=== PATIENT | male | born 1980 | race Hispanic/Latino ===

== ENCOUNTER 2019-08-07 12:10 | Inpatient (IN) | payer SELFPAY ==
[2019-08-07 13:11] LABS: #Basophils 0.1 thou/uL (0.0-0.2); #Eosinphils 0.4 thou/uL (0.0-0.7); #Lymphocytes 1.9 thou/uL (1.20-3.40); #Monocytes 0.6 thou/uL (0.11-0.59); #Neutrophils 7.3 thou/uL (1.40-6.50); %Basophils 0.5 % (0.0-1.0); %Eosinophils 3.7 % (0.0-10.0); %Lymphocytes 18.4 % (21.0-51.0); %Monocytes 5.8 % (0.0-10.0); %Neutrophils 71.5 % (42.0-75.0); Hemoglobin 7.2 g/dL (14.0-18.0); Mean Corpuscular HGB CONC 35.1 g/dL (32.0-36.0); Mean Corpuscular Hemoglobin 30.8 pg (27.0-31.0); Mean Corpuscular Volume 87.5 fL (78.0-98.0); Mean Platelet Volume 7.2 fL (7.4-10.4); Platelet Count 190 thou/uL (130-400); RBC Distribution Width 13.2 % (11.5-14.5); Red Blood Cell (RBC) Count 2.34 mill/uL (4.70-6.10); White Blood Cell (WBC) Count 10.2 thou/uL (4.8-10.8)
--- NOTE | 2019-08-07 13:13 | RAD ---
CHEST 1 VIEW: HISTORY: Dyspnea. Comparison: None. FINDINGS: Lungs: Focal right perihilar opacity. Cardiac silhouette:Enlarged cardiac silhouette and prominence of central pulmonary vasculature. Pleural Spaces: Mild blunting of costophrenic sulci could relate to small volume pleural fluid. Pneumothorax: None. Osseous abnormalities: None of acuity. IMPRESSION: 1. Right asymmetric perihilar opacity. This could relate to perihilar pneumonia, asymmetric edema, o r alternatively underlying centrally located mass. This should be further assessed with follow-up 2 view chest to confirm resolution. 2. Evidence of fluid overload. Correlate clinically. CODE T Transcribed Date/Time: 08/07/2019 1:59 PM
[2019-08-07 13:29] LABS: ALT (SGPT) 37 U/L (8-55); AST (SGOT) 39 U/L (5-34); Albumin 3.1 g/dL (3.5-5.0); Alkaline Phosphatase 89 U/L (40-110); Anion Gap 22 mmol/L (10-20); BUN (Urea Nitrogen) 84 mg/dL (8.9-20.6); Bilirubin, Total 0.6 mg/dL (0.2-1.2); Calc. Creatinine Clearance 0 mL/min (70-130); Carbon Dioxide 16 mmol/L (22-29); Chloride 108 mmol/L (98-107); Estimated GFR-MDRD 4; Globulin 3.4 g/dL (2.4-3.5); Glucose 77 mg/dL (70-105); Potassium 4.7 mmol/L (3.5-5.1); Protein, Total 6.5 g/dL (6.0-8.3); Sodium 141 mmol/L (136-145)
[2019-08-07 13:52] LABS: CKMB 5.3 ng/mL (0-6.6)
[2019-08-07 15:43] LABS: Hep B Core Total Ab Non-Reactive (NonReactive); Hep B Core Total Index 0.04 S/CO (0-0.79); Hep B Surf AB Non-Reactive (NonReactive); Hep B Surf Ag Non-Reactive S/CO (NonReactive)
[2019-08-07 15:44] LABS: Hep C IgG Ab Non-Reactive (NonReactive); Hep C Index 0.17 S/CO (0-0.79)
[2019-08-07 15:50] LABS: Hemoglobin A1c 4.7 % (4.0-6.0)
[2019-08-07 15:51] LABS: Acetaminophen Less than 6.0 mcg/mL (10.0-30.0); Alcohol Less than 10 mg/dL (Less than 10); CK (CPK) 838 U/L (30-200); Salicylate Less than 8.0 mg/dL (15.0-30.0)
[2019-08-07] MEDS ORDERED: Aspirin 325 MG TAB ONE (16:02)
[2019-08-07] MEDS ORDERED: Ondansetron PF 4 MG/2 ML Vial IVP PRN (16:05)
[2019-08-07 16:35] LABS: Magnesium 1.9 mg/dL (1.6-2.6)
[2019-08-07 16:45] LABS: Phosphorus 10.1 mg/dL (2.3-4.7)
[2019-08-07 16:47] LABS: HIV (1/2) Antibody/Antigen Non-Reactive (NonReactive); HIV 1/2 INDEX 0.06 S/CO (<1.00)
--- NOTE | 2019-08-07 16:52 | ULT ---
RENAL ULTRASOUND: 08/07/19 HISTORY: Acute renal failure. Real time imaging of the right and left kidneys were performed. The right kidney is 11.6 cm in size. Cortex is of increased echogenicity. The left kidney is more difficult to visualize. It measures 11.5 cm. Echogenicity of the cortex. No signs of cysts, mass or obstruction. The bladder region is unrem arkable. IMPRESSION: Increased echogenicity to both kidneys suggesting underlying medical renal parenchymal disease. POS: TPC
[2019-08-07] MEDS ORDERED: Labetalol HCl 100 MG/20 ML VIAL SLOW IVP PRN (16:59)
--- NOTE | 2019-08-07 17:09 | PDOC.FPROB ---
FMR OB H&P: Medications - Current Allergies/Adverse Reactions: Allergies Allergy/AdvReac Type Severity Reaction Status Date / Time No Known Allergies Allergy Unverified 08/07/19 16:47 FMR OB H&P: Results - Labs Lab results: Laboratory Results - last 24 hr 08/07/19 08/07/19 08/07/19 12:56 12:56 12:59 WBC RBC Hgb Hct MCV MCH MCHC RDW Plt Count MPV Neutrophils % Lymphocytes % Monocytes % Eosinophils % Basophils % Neutrophils # Lymphocytes # Monocytes # Eosinophils # Basophils # ESR Westergren 37 Sodium 141 Potassium 4.7 Chloride 108 H Carbon Dioxide 16 L Anion Gap 22 H BUN 84 H Creatinine 14.15 H Estimated GFR (MDRD) 4 Glucose 77 Hemoglobin A1c 4.7 Calcium 6.0 L Phosphorus Magnesium Total Bilirubin 0.6 AST 39 H ALT 37 Alkaline Phosphatase 89 Creatine Kinase CK-MB (CK-2) Troponin I B-Natriuretic Peptide Serum Total Protein 6.5 Albumin 3.1 L Globulin 3.4 Albumin/Globulin Ratio 0.9 L Procalcitonin Salicylates Acetaminophen Plasma Alcohol Hep Bs Antigen Hep Bs Antibody Hep Bs Antibody Index Hep B Core Total Ab Hepatitis C Antibody 08/07/19 08/07/19 08/07/19 12:59 12:59 12:59 WBC 10.2 RBC 2.34 L Hgb 7.2 L Hct 20.5 L MCV 87.5 MCH 30.8 MCHC 35.1 RDW 13.2 Plt Count 190 MPV 7.2 L Neutrophils % 71.5 Lymphocytes % 18.4 L Monocytes % 5.8 Eosinophils % 3.7 Basophils % 0.5 Neutrophils # 7.3 H Lymphocytes # 1.9 Monocytes # 0.6 H Eosinophils # 0.4 Basophils # 0.1 ESR Westergren Sodium Potassium Chloride Carbon Dioxide Anion Gap BUN Creatinine Estimated GFR (MDRD) Glucose Hemoglobin A1c Calcium Phosphorus Magnesium Total Bilirubin AST ALT Alkaline Phosphatase Creatine Kinase CK-MB (CK-2) 5.3 Troponin I 0.108 H B-Natriuretic Peptide 2851.7 H Serum Total Protein Albumin Globulin Albumin/Globulin Ratio Procalcitonin Salicylates Acetaminophen Plasma Alcohol Hep Bs Antigen Hep Bs Antibody Hep Bs Antibody Index Hep B Core Total Ab Hepatitis C Antibody 08/07/19 08/07/19 08/07/19 13:49 15:29 15:36 WBC RBC Hgb Hct MCV MCH MCHC RDW Plt Count MPV Neutrophils % Lymphocytes % Monocytes % Eosinophils % Basophils % Neutrophils # Lymphocytes # Monocytes # Eosinophils # Basophils # ESR Westergren Sodium Potassium Chloride Carbon Dioxide Anion Gap BUN Creatinine Estimated GFR (MDRD) Glucose Hemoglobin A1c Calcium Phosphorus Magnesium Total Bilirubin AST ALT Alkaline Phosphatase Creatine Kinase 838 H CK-MB (CK-2) Troponin I B-Natriuretic Peptide Serum Total Protein Albumin Globulin Albumin/Globulin Ratio Procalcitonin 0.14 Salicylates Less than 8.0 L Acetaminophen Less than 6.0 L Plasma Alcohol Less than 10 Hep Bs Antigen Non-Reactive Hep Bs Antibody Non-Reactive Hep Bs Antibody Index 1.30 Hep B Core Total Ab Non-Reactive Hepatitis C Antibody Non-Reactive 08/07/19 15:42 WBC RBC Hgb Hct MCV MCH MCHC RDW Plt Count MPV Neutrophils % Lymphocytes % Monocytes % Eosinophils % Basophils % Neutrophils # Lymphocytes # Monocytes # Eosinophils # Basophils # ESR Westergren Sodium Potassium Chloride Carbon Dioxide Anion Gap BUN Creatinine Estimated GFR (MDRD) Glucose Hemoglobin A1c Calcium Phosphorus 10.1 H* Magnesium 1.9 Total Bilirubin AST ALT Alkaline Phosphatase Creatine Kinase CK-MB (CK-2) Troponin I B-Natriuretic Peptide Serum Total Protein Albumin Globulin Albumin/Globulin Ratio Procalcitonin Salicylates Acetaminophen Plasma Alcohol Hep Bs Antigen Hep Bs Antibody Hep Bs Antibody Index Hep B Core Total Ab Hepatitis C Antibody FMR OB H&P: A/P - Problem List (1) Acute renal failure Current Visit: Yes Status: Acute (2) Fluid overload Current Visit: Yes Status: Acute Code(s): E87.70 - FLUID OVERLOAD, UNSPECIFIED (3) Normocytic anemia Current Visit: Yes Status: Acute Code(s): D64.9 - ANEMIA, UNSPECIFIED
--- NOTE | 2019-08-07 17:11 | PDOC.FPRHP ---
- Allergies/Adverse Reactions Allergies Allergy/AdvReac Type Severity Reaction Status Date / Time No Known Allergies Allergy Verified 08/07/19 17:28 - History PMHx: PSHx: FHx: Social: - Vital signs BP: [] HR: [] RR: [] Tmax: [] Pox: []% on [] Wt: [] FMR H&P: Results - Labs Result Diagrams: 08/11/19 07:19 08/11/19 07:19 Lab results: WBC 10.2 thou/uL (4.8-10.8) 08/07/19 12:59 Hgb 7.2 g/dL (14.0-18.0) L 08/07/19 12:59 Hct 20.5 % (42.0-52.0) L 08/07/19 12:59 MCV 87.5 fL (78.0-98.0) 08/07/19 12:59 Plt Count 190 thou/uL (130-400) 08/07/19 12:59 Neutrophils % 71.5 % (42.0-75.0) 08/07/19 12:59 ESR Westergren 37 mm/hr (Less than 15) 08/07/19 12:56 Sodium 141 mmol/L (136-145) 08/07/19 12:59 Potassium 4.7 mmol/L (3.5-5.1) 08/07/19 12:59 Chloride 108 mmol/L (98-107) H 08/07/19 12:59 Carbon Dioxide 16 mmol/L (22-29) L 08/07/19 12:59 BUN 84 mg/dL (8.9-20.6) H 08/07/19 12:59 Creatinine 14.15 mg/dL (0.7-1.3) H 08/07/19 12:59 Glucose 77 mg/dL (70-105) 08/07/19 12:59 Calcium 6.0 mg/dL (7.8-10.44) L 08/07/19 12:59 Total Bilirubin 0.6 mg/dL (0.2-1.2) 08/07/19 12:59 AST 39 U/L (5-34) H 08/07/19 12:59 ALT 37 U/L (8-55) 08/07/19 12:59 Alkaline Phosphatase 89 U/L (40-110) 08/07/19 12:59 Creatine Kinase 838 U/L (30-200) H 08/07/19 15:29 CK-MB (CK-2) 5.3 ng/mL (0-6.6) 08/07/19 12:59 B-Natriuretic Peptide 2851.7 pg/mL (0-100) H 08/07/19 12:59 Serum Total Protein 6.5 g/dL (6.0-8.3) 08/07/19 12:59 Albumin 3.1 g/dL (3.5-5.0) L 08/07/19 12:59 FMR H&P: A/P - Problem List (1) Acute renal failure Current Visit: Yes Status: Acute (2) Fluid overload Current Visit: Yes Status: Acute Code(s): E87.70 - FLUID OVERLOAD, UNSPECIFIED (3) Normocytic anemia Current Visit: Yes Status: Chronic Code(s): D64.9 - ANEMIA, UNSPECIFIED FMR H&P: Upper Level - Plan Date/Time: 08/07/191709 Date/Time: 08/07/191707 PCP: IAN HPI: This is a 38 yo M presenting to outside clinic with chief complaint of cough and headache which started about 5 days ago. He states he had fever to 102 at home 2 days ago but has not had fever since that time. He denies productive cough although he does feel short of breath with activity. He has had chills and sweats. He was treated in clinic with azithromycin and labs were ordered in the clinic which revealed his elevated Cr thus he was sent directly to the ED. He has not seen a doctor in about 5 years per his report. He denies burning or blood with urination, he denies any changes to urinary habits. Headache is described as pressure, he states this radiates up from his neck, no neck stiffness, states this is not a new headache, it is like headaches he has had in the past. He does admit to a 10 pack-year smoking history. He previously used cocaine but quit 5 years ago. Denies any family history of renal disease. Grandmother with diabetes. PMH: patient denies DM, HTN PSH: patient denies surgeries Meds: denies home meds Allergies: NDKA Soc Hx: as above Fm hx: as above REVIEW OF SYSTEMS: Gen: see hpi Neuro: see hpi Eyes: no visual changes ENT: no hearing changes, no sore throat, no congestion Resp: see hpi Card: denies murmurs, rubs, gallups GI: no N/V/D, no abdominal pain Heme: no easy bruising/bleeding, no blood thinners Skin: no rash, no erythema Vitals: BP: 172/112, Pulse:80, Resp: 24, Temp: 98.4 Wt: 77kg PHYSICAL EXAMINATION: General: appears generally malaised, alert and oriented x3 HEENT: PERRLA, EOMI, normal sclera, oropharynx without erythema or exudate Neck: Supple. Full ROM. Heart/Cardiovascular System: RRR, Cap refill < 3 seconds, no rub, no murmur Lungs/Respiratory System: CTA-B, no resp distress Abdomen/Gastro-Intestinal System: no abdominal tenderness, normal bowel sounds Extremities: Warm extremities. No cyanosis or edema, R groin dialysis catheter in place Neuro: No gross deficits appreciated. CN 2-12 grossly intact Psychiatry: Awake, Alert and cooperative with exam Skin: No lesions, rashes, or ulcers Musculoskeletal: Full ROM A/P: # Acute renal failure - Differential: untreated HTN, familial, infectious source - Urgent dialysis arranged, Dr Hatfield consulted from ED - A1C 4.7, CK 838, unlikely sources - FeNa, renal US, HIV, Hepatitis ordered # HTN - Nifedipine - Labetalol PRN # Hx of fever - Afebrile, WBC 10.2, no signs of infection on exam - Will order procal and influenza - Denies travel to [place] or TB contacts # Normocytic Anemia - Hgb 7.2, consider transfusion with dialysis tomorrow - Iron studies, FOBT pending, likely 2/2 ARF # Fluid Overload - Likely 2/2 ARF, BNP 2851 - Remove fluid in dialysis, will check echo Fluids: TKO Code: full PPx: scd Dispo: > 2 midnight Addendum - Attending - Attending Attestation Date/Time: 08/07/19 4575 I personally evaluated the patient and discussed the management with Dr. Oliva I agree with the History, Examination, Assessment and Plan documented above with any addition or exceptions noted below. 38 yo male with unknown medical hx presents for evaluation of elevated creatinine. Patient reports fever 2 days ago. Fatigue. Body aches. CASAREZ. Has not been seen by MD in several years. Denies any medical problems. Denies changes in urination. VS, labs, and imaging reviewed. Agree with PE as documented by resident. 1. Acute vs Chronic renal failure: Requires urgent HD. Gen surg and nephro consulted. Trend electorlytes. Currently stable. Work up pending. Renal sono ordered. Urine studies pending. Monitor protein. Check all electrolytes. No s/ sx of uremia. Will need to rule out HIV, Hepatitis, etc for HD. 2. Anemia: Likely related to renal dz. Transfuse 1 unit. 3. Heart failure: Elevated BNP. CASAREZ. Will need ECHO. Will need to determine etiology. Due to age low risk for CAD as cause but patient also with risk factors. BB, statin, ASA, spironolactone. Not able to use ACIE or ARB due to renal dz. Lasix not likely to work. Cards as needed. 4. HTN: BB. Can use CCB, hydralazine, clonidine, etc. Check UDS. 5. Fever of unknown source: Bacterial vs Viral. Inflammatory markers ordered. Flu swab pending. Possible pneumonia on imaging. Monitor. Will admit to IM for HD. Trend labs. Ebony
[2019-08-07] MEDS ORDERED: NIFEdipine XL 30 MG TAB PO SCH (17:15)
[2019-08-07 17:28] LABS: Iron 37 ug/dL (65-175); Iron Binding Capacity, Total 228 mcg/dL (261-462)
[2019-08-07 17:30] VITALS: BMI 25.0
[2019-08-07 17:50] LABS: #Basophils 0.1 thou/uL (0.0-0.2); #Eosinphils 0.3 thou/uL (0.0-0.7); #Lymphocytes 1.4 thou/uL (1.20-3.40); #Monocytes 0.3 thou/uL (0.11-0.59); #Neutrophils 6.9 thou/uL (1.40-6.50); %Basophils 0.7 % (0.0-1.0); %Eosinophils 3.1 % (0.0-10.0); %Lymphocytes 15.7 % (21.0-51.0); %Monocytes 2.8 % (0.0-10.0); %Neutrophils 77.7 % (42.0-75.0); Hemoglobin 7.2 g/dL (14.0-18.0); Mean Corpuscular HGB CONC 35.2 g/dL (32.0-36.0); Mean Corpuscular Hemoglobin 31.2 pg (27.0-31.0); Mean Corpuscular Volume 88.9 fL (78.0-98.0); Mean Platelet Volume 7.2 fL (7.4-10.4); Platelet Count 193 thou/uL (130-400); RBC Distribution Width 13.4 % (11.5-14.5); Reticulocyte Count 2.3 % (0.5-1.5); White Blood Cell (WBC) Count 8.9 thou/uL (4.8-10.8)
[2019-08-07] MEDS: Calcium Carbonate 500 MG ChewTAB PO SCH (18:01)
[2019-08-07] MEDS: EPOETIN ALFA-EPBX (ESRD) 4,000 UNIT/ML VIAL SC SCH (18:01)
[2019-08-07 18:28] LABS: Anion Gap 19 mmol/L (10-20); BUN (Urea Nitrogen) 71 mg/dL (8.9-20.6); Calc. Creatinine Clearance 9 mL/min (70-130); Calcium 6.7 mg/dL (7.8-10.44); Carbon Dioxide 18 mmol/L (22-29); Chloride 105 mmol/L (98-107); Estimated GFR-MDRD 5; Glucose 78 mg/dL (70-105); Phosphorus 7.6 mg/dL (2.3-4.7); Potassium 4.3 mmol/L (3.5-5.1); Sodium 138 mmol/L (136-145)
--- NOTE | 2019-08-07 19:54 | CON ---
DATE OF CONSULTATION: HISTORY OF PRESENT ILLNESS: Mr. Macias is a 38-year-old male, who presented to [facility], complaining of fever. He was noted to have a creatinine 14 at that time. On examination on this patient after transfer, he is sleepy and drowsy. I think he may be clinically uremic. REVIEW OF SYSTEMS: Positive for generalized malaise. Positive for nausea. No syncopal episode. ? of fever. No diarrhea. No constipation. No productive cough. Decreased energy level. Decreased appetite. Occasional joint pains. No new skin rash. MEDICATIONS: None. PAST MEDICAL HISTORY: 1. Hypertension ? 2. Chronic renal failure ? PAST SURGICAL HISTORY: No known surgeries. SOCIAL HISTORY: The patient lives in [facility]. He is a construction job cost estimator. . Three children. Smokes 10 cigarettes per day for the last 10 years. Education, primary grade. No IV drug use. Alcohol, none ? FAMILY HISTORY: No family history of ESRD. ALLERGIES: NONE. TRAUMA: None. IMMUNIZATION: Unknown. HOSPITALIZATIONS: Please see past medical history. PHYSICAL EXAMINATION: VITAL SIGNS: Blood pressure is 170/106, heart rate 74, and pulse ox 99%. GENERAL: The patient is sleepy, but arousable, not in overt distress. SKIN: Adequate turgor. HEENT: Pale conjunctivae. Anicteric sclerae. No neck mass. No carotid bruits. No JVD. CHEST: No deformities. LUNGS: Decreased breath sounds. No wheezing. No crackles. HEART: Normal sinus rhythm. No murmur. No gallops. No rubs. ABDOMEN: Globular, soft, nontender. No masses. EXTREMITIES: No edema. No deformities. NEUROLOGICAL: The patient has decreased mentation. No tremors. No asterixis. LABORATORY DATA: Laboratories on August 07, 2019, white count 10.2, hemoglobin 7.2. Sodium 141, potassium 4.7, chloride 108, carbon dioxide 16, BUN 84, creatinine 14.1. GFR is less than 10 mL/minute. CK 5.3, AST 39, ALT 37, calcium is 6. Chest x-ray, increased lung marking. Renal ultrasound, increased renal cortical echogenicity. ASSESSMENT AND PLAN: 1. Chronic renal failure with anemia, possible hyperphosphatemia. Consider the possibility, this is chronic in nature. I have initiated dialysis since I feel this patient is clinically uremic. Our plan is to do a 2-hour hemodialysis and followed by another dialysis tomorrow for 3 hours, then 4 hours the day after. We will make arrangements for outpatient hemodialysis. 2. Anemia. P.r.n. blood transfusion. Start Epogen and iron supplementation. 3. We will recheck baseline CBC, intact PTH, and serum phosphorus in a.m. 4. Case will be discussed with the if she is available. Thank you for the consult. We will continue to follow. Job ID: [id number]
[2019-08-07] MEDS ORDERED: NIFEdipine 10 MG CAP PO SCH (21:00)
[2019-08-07 22:26] LABS: Amphetamine Not Detected (NotDetected); Barbiturates Screen Not Detected (NotDetected); Benzodiazepine Screen Not Detected (NotDetected); Cocaine Metabolite Screen Detected (NotDetected); Medtox Control Line Valid? VALID (VALID); Medtox Reader # READER 4; Methadone Not Detected (NotDetected); Methamphetamine Not Detected (NotDetected); Opiate Screen Not Detected (NotDetected); Oxycodone Screen Not Detected (NotDetected); Phencyclidine (PCP) Not Detected (NotDetected); THC/Cannabinoid Screen Not Detected (NotDetected); Tricyclic Screen Not Detected (NotDetected)
[2019-08-07 22:32] LABS: Creatinine, Urine 59.77 mg/dL (63-166)
[2019-08-07] MEDS: Acetaminophen 325 MG TAB PO PRN (22:57)
[2019-08-08] MEDS: Acetaminophen 325 MG TAB PO PRN (04:41)
--- NOTE | 2019-08-08 05:35 | PDOC.FM ---
- Subjective Subjective: Pt feels the same as yesterday. He states he tolerated dialysis yesterday. He remains fatigued. Denies pain. Continues making urine. - Objective Vital Signs & Weight: Vital Signs (12 hours) Temp Pulse Ox 08/08/19 03:48 98.6 F 08/07/19 23:00 98.9 F 08/07/19 20:00 98 08/07/19 19:58 98.0 F 08/07/19 17:36 100 Weight Weight 72.439 kg Most Recent Monitor Data Heart Rate from ECG 94 NIBP 113/70 NIBP BP-Mean 84 Respiration from ECG 17 SpO2 95 I&O: 08/06/19 08/07/19 08/08/19 06:59 06:59 06:59 Intake Total 240 Output Total 325 Balance -85 Result Diagrams: 08/08/19 05:34 08/08/19 05:34 Phys Exam - Physical Examination Constitutional: NAD Appears fatigued HEENT: PERRLA, sclera anicteric Respiratory: no wheezing, no rales, no rhonchi, clear to auscultation bilateral Cardiovascular: RRR, no significant murmur Gastrointestinal: soft, non-tender, no distention Musculoskeletal: no edema, pulses present Neurological: normal sensation, moves all 4 limbs Psychiatric: normal affect, A&O x 3 Dx/Plan (1) Acute renal failure Status: Acute (2) Fluid overload Code(s): E87.70 - FLUID OVERLOAD, UNSPECIFIED Status: Acute (3) Normocytic anemia Code(s): D64.9 - ANEMIA, UNSPECIFIED Status: Acute - Plan Plan: # Acute renal failure Positive cocaine, hx of cocaine, undiagnosed HTN could be cause of renal failure. - Differential: untreated HTN, familial - Continue dialysis via fem line per Dr. Hatfield's recs - A1C 4.7, CK 838, unlikely sources - feNa elevated, intra-renal process - U/S revealed parynchemal involvement - less likely infectious, Hep Panel negative, HIV negative, Procal negative # Elevated ESR - possibly secondary to acute renal failure # HTN - Nifedipine - Labetalol PRN # Hx of fever - Afebrile, WBC 10.2, no signs of infection on exam - Will order procal and influenza - Denies travel to [place] or TB contacts # Normocytic Anemia - Hgb 8.2, transfusion with dialysis today, per Dr. Hatfield's recs - Iron studies revealed anemia of chronic disease, retic 2.3, FOBT pending, likely 2/2 ARF - EPO during dialysis, iron sulfate PO # Fluid Overload - Likely 2/2 ARF, BNP 2851 - Remove fluid in dialysis, will check echo # Hypophosphatemia # Hyperparathyroid # Hypocalcemia - Calcium corrects to low normal. Parathyroid, phosphate are likely elevated due to renal failure Fluids: TKO Code: full PPx: scd Dispo: > 2 midnight, will move to medical floor today.
[2019-08-08 05:48] LABS: #Basophils 0.1 thou/uL (0.0-0.2); #Eosinphils 0.4 thou/uL (0.0-0.7); #Lymphocytes 1.9 thou/uL (1.20-3.40); #Monocytes 0.6 thou/uL (0.11-0.59); #Neutrophils 6.6 thou/uL (1.40-6.50); %Basophils 0.8 % (0.0-1.0); %Eosinophils 4.3 % (0.0-10.0); %Lymphocytes 19.5 % (21.0-51.0); %Monocytes 6.2 % (0.0-10.0); %Neutrophils 69.2 % (42.0-75.0); Hemoglobin 8.2 g/dL (14.0-18.0); Mean Corpuscular HGB CONC 35.1 g/dL (32.0-36.0); Mean Corpuscular Hemoglobin 30.8 pg (27.0-31.0); Mean Corpuscular Volume 87.7 fL (78.0-98.0); Mean Platelet Volume 7.3 fL (7.4-10.4); Platelet Count 228 thou/uL (130-400); RBC Distribution Width 13.1 % (11.5-14.5); Red Blood Cell (RBC) Count 2.67 mill/uL (4.70-6.10); White Blood Cell (WBC) Count 9.5 thou/uL (4.8-10.8)
[2019-08-08 06:00] LABS: Anion Gap 17 mmol/L (10-20); BUN (Urea Nitrogen) 58 mg/dL (8.9-20.6); Calc. Creatinine Clearance 10 mL/min (70-130); Calcium 6.7 mg/dL (7.8-10.44); Carbon Dioxide 22 mmol/L (22-29); Chloride 101 mmol/L (98-107); Estimated GFR-MDRD 6; Glucose 119 mg/dL (70-105); Potassium 3.7 mmol/L (3.5-5.1); Sodium 136 mmol/L (136-145)
[2019-08-08 06:44] LABS: Bilirubin Negative (Negative); Blood, Urine 1+ (Negative); Clarity Clear (Clear); Glucose, Urine (Dipstick) 30 mg/dL (Negative); Leukocyte Negative Leu/uL (Negative); Nitrite Negative (Negative); Protein, Urine (Dipstick) 300 mg/dL (Neg-Trace); Squamous Epithelial 0-3 HPF (0-3); Urobilinogen Normal mg/dL (Less than 2)
[2019-08-08 06:45] LABS: Bacteria/HPF 1+ HPF (None Seen)
[2019-08-08] MEDS ORDERED: FLU VACC QS2019-20(6MOS UP)/PF 60 MCG/0.5 ML SYRINGE IM ONE (09:00)
--- NOTE | 2019-08-08 09:52 | PRG ---
DATE OF SERVICE: 08/08/2019 SUBJECTIVE: Mr. Macias is a 38-year-old male, who was admitted for uremia. On close questioning, he tells me he has history of hypertension and diabetes mellitus, but this is untreated. Due to his uremic signs and symptoms, hemodialysis was initiated today. I plan to do another dialysis within today. He is feeling better. OBJECTIVE: VITAL SIGNS: Blood pressure 125/81, heart rate 94, respiratory rate 28, and pulse ox 97%. GENERAL: Noted to be awake, alert, comfortable, not in distress. SKIN: Adequate turgor. HEENT: He has a slightly pale conjunctivae. Anicteric sclerae. No neck mass. No carotid bruits. No JVD. CHEST: No deformities. LUNGS: Clear breath sounds. HEART: Normal sinus rhythm. No murmurs, gallops, or rubs. ABDOMEN: Globular, soft, nontender. No masses. EXTREMITIES: No edema, no deformities. MEDICATIONS: Of August 08, 2019, was reviewed. LABORATORY DATA: Of August 08, 2019, BUN 58, creatinine 10.29, potassium 3.7, sodium 136, chloride 101, carbon dioxide 22, calcium is 6.7, phosphorus 7.6, PTH is 536. ASSESSMENT AND PLAN: 1. Secondary hyperparathyroidism. Calcitriol 0.25 mcg tablet daily. 2. Hyperphosphatemia/hypocalcemia-on calcium carbonate. 3. Chronic renal failure/endstage renal disease, continuing daily hemodialysis. Fluid removal only as tolerated. 4. Anemia, continuing weekly Epogen. Job ID: [id number]
[2019-08-08] MEDS: Calcium Carbonate 500 MG ChewTAB PO SCH ×2 (13:32→18:21)
[2019-08-08] MEDS: Ferrous Sulfate 325 MG TAB PO SCH ×2 (13:34→18:21)
[2019-08-08] MEDS: NIFEdipine XL 30 MG TAB PO SCH (13:34)
--- NOTE | 2019-08-08 14:25 | PDOC.BPN ---
- Brief Progress Note To whom it may concern, This patient is admitted to [facility] in [place], [place] for acute renal failure. He is currently receiving dialysis treatment and doing well but his long-term prognosis is unknown at this moment. We will see how his kidneys respond to dialysis and medical therapy. Jp Oliva MD [place], [place] [phone]
[2019-08-08] MEDS ORDERED: Heparin 10,000 UNITS/1 ML VIAL ONE (15:00)
[2019-08-08] MEDS ORDERED: Heparin 10,000 UNITS/ 10 ML VIAL ONE (18:00)
[2019-08-09] MEDS: Benzonatate 100 MG CAP PO PRN ×2 (00:43→22:19)
[2019-08-09] MEDS: Acetaminophen 325 MG TAB PO PRN ×2 (00:43→20:26)
--- NOTE | 2019-08-09 06:46 | PDOC.FM ---
- Subjective Subjective: Pt was coughing through night. states he had fever, RUGGIERO overnight resolved with tylenol. He feels better after dialysis. - Objective Vital Signs & Weight: Vital Signs (12 hours) Temp Pulse Resp BP Pulse Ox 08/09/19 04:27 98.6 F 82 20 142/94 H 90 L 08/09/19 00:38 100.3 F H 92 16 146/80 H 92 L 08/08/19 20:00 92 L 08/08/19 19:51 100.0 F H 91 16 151/86 H 92 L Weight Weight 72.439 kg Most Recent Monitor Data Heart Rate from ECG 80 NIBP 137/82 NIBP BP-Mean 100 Respiration from ECG 21 SpO2 98 I&O: 08/07/19 08/08/19 08/09/19 06:59 06:59 06:59 Intake Total 240 350 Output Total 325 Balance -85 350 Result Diagrams: 08/09/19 07:28 08/09/19 07:28 Phys Exam - Physical Examination Constitutional: NAD HEENT: PERRLA, moist MMs Respiratory: no wheezing, no rales, clear to auscultation bilateral Cardiovascular: RRR, no significant murmur, no rub Gastrointestinal: soft, non-tender, no distention Musculoskeletal: no edema Dx/Plan (1) Acute renal failure Status: Acute (2) Fluid overload Code(s): E87.70 - FLUID OVERLOAD, UNSPECIFIED Status: Acute (3) Normocytic anemia Code(s): D64.9 - ANEMIA, UNSPECIFIED Status: Acute - Plan Plan: # Acute renal failure Positive cocaine, hx of cocaine, undiagnosed HTN could be cause of renal failure. - Differential: untreated HTN, familial - Continue dialysis via fem line per Dr. Hatfield's recs. He is receiving his 3/3 days of dialysis. Follow Dr. Hatfield's recs to see if he recommends more. - A1C 4.7, CK 838, unlikely sources - feNa elevated, intra-renal process - U/S revealed parynchemal involvement - less likely infectious, Hep Panel negative, HIV negative, Procal negative - Per Dr. Hatfield, will follow up with Dialysis Unit in [place]. He has spoken with about this. # Restrictive Diastolic Cardiomyopathy Possibly secondary to uremia Echo: EF 40-45% - Cards consulted; appreciate the recs - Order lisinopril and coreg # Elevated ESR - possibly secondary to acute renal failure # HTN - Nifedipine - Labetalol PRN # Hx of fever - 100.3 fever over night. WBC 9.5. No signs of infection on exam - Procal negative - Denies travel to [place] or TB contacts # Normocytic Anemia s/p 1 uprbc on 08/08 with dialysis. Hgb 8.5 on 08/09. - Iron studies revealed anemia of chronic disease, retic 2.3, FOBT negative likely 2/2 ARF - EPO during dialysis, iron sulfate PO # Fluid Overload - Likely 2/2 ARF, BNP 2851 - Remove fluid in dialysis, will check echo # Hypophosphatemia # Hyperparathyroid # Hypocalcemia - Calcium corrects to low normal. Parathyroid, phosphate are likely elevated due to renal failure Fluids: TKO Code: full PPx: scd Dispo: > 2 midnight, pending outpt dialysis and card's recs for discharge.
[2019-08-09 07:47] LABS: Troponin I 0.107 ng/mL (< 0.028)
[2019-08-09 07:56] LABS: Anion Gap 15 mmol/L (10-20); BUN (Urea Nitrogen) 41 mg/dL (8.9-20.6); Calc. Creatinine Clearance 13 mL/min (70-130); Calcium 6.9 mg/dL (7.8-10.44); Carbon Dioxide 22 mmol/L (22-29); Chloride 102 mmol/L (98-107); Estimated GFR-MDRD 7; Glucose 82 mg/dL (70-105); Potassium 4.4 mmol/L (3.5-5.1); Sodium 135 mmol/L (136-145)
[2019-08-09 08:06] LABS: Band 1 % (5-11); Eosinophils 8 % (0-10); Helmet Cells SLIGHT = 2-5 cells (100X) (0-1/hpf); Hemoglobin 8.5 g/dL (14.0-18.0); Lymphocytes 23 % (21-51); MDiff Complete? YES; Mean Corpuscular HGB CONC 34.5 g/dL (32.0-36.0); Mean Corpuscular Volume 84.1 fL (78.0-98.0); Mean Platelet Volume 7.7 fL (7.4-10.4); Monocytes 8 % (0-10); Neutrophil 57 % (42-75); Ovalocytes SLIGHT = 2-5 cells (100X) (0-1/hpf); Platelet Count 199 thou/uL (130-400); Platelet Morphology Comment Appears Adequate; Polychromasia SLIGHT = 2-3 cells (100X) (0-2/hpf); RBC Distribution Width 16.7 % (11.5-14.5); Reactive Lymphocytes 3 % (0-10); Red Blood Cell (RBC) Count 2.93 mill/uL (4.70-6.10); Schistocytes SLIGHT = 2-5 cells (100X) (0-1/hpf); Target Cells SLIGHT = 2-5 cells (100X) (0-1/hpf); White Blood Cell (WBC) Count 9.6 thou/uL (4.8-10.8)
[2019-08-09] MEDS: Ferrous Sulfate 325 MG TAB PO SCH ×2 (09:14→19:11)
[2019-08-09] MEDS: Calcitriol 0.25 MCG CAP PO SCH (09:14)
[2019-08-09] MEDS: NIFEdipine XL 30 MG TAB PO SCH (09:14)
[2019-08-09] MEDS: Calcium Carbonate 500 MG ChewTAB PO SCH ×3 (09:14→19:11)
--- NOTE | 2019-08-09 13:59 | RAD ---
XR Chest Pa Lat STANDARD History: Cough and decreased oxygen saturation Comparison: Radiograph 2 days prior Findings: Improved aeration of the lungs. No pneumothorax. Small effusions. No acute osseous abnormality. Cardiac silhouette and mediastinal contours are within normal limits. Impression: Improved lung aeration with small bilateral effusions remaining.
--- NOTE | 2019-08-09 18:51 | CON ---
DATE OF CONSULTATION: 08/09/2019 REASON FOR CONSULTATION: Mildly depressed left ventricular function in the setting of renal failure. HISTORY OF PRESENT ILLNESS: Mr. Macias is a 38-year-old gentleman, who presented to the emergency room, it appears complaining of weakness and fatigue and was found to be in renal failure. He was transferred here for further care. The patient does not have chest pain or pressure. He did report a fever. His initial creatinine is 14. He speaks Sinhala only. No history of chest pain. No history of hypertension that he knew of, but he has been hypertensive here. REVIEW OF SYSTEMS: Positive for malaise and weakness. No nausea. No syncope. Positive for fever. MEDICATION: None prior to admission. PAST SURGICAL HISTORY: No known surgery. 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 , with three children. FAMILY HISTORY: No history of end-stage renal disease. ALLERGIES: NONE. PHYSICAL EXAMINATION: GENERAL: This is a very pleasant, healthy-appearing, 38-year-old gentleman. He has been hypertensive here. VITAL SIGNS: His blood pressure most recently 160/90. HEENT: Eyes; sclerae are nonicteric. Mouth, mucous membranes moist. NECK: Supple. No lymphadenopathy. LUNGS: Clear. No wheezing. CARDIAC: Normal S1, normal S2. There is no murmur, rub, or gallop. ABDOMEN: Soft and nontender. EXTREMITIES: Warm and dry. No clubbing, cyanosis, or edema. PERTINENT LABORATORIES: Hemoglobin is 8.5. His creatinine is 8.2. He is undergoing hemodialysis now. BNP 1502. Troponin 0.17. Echocardiogram showed ejection fraction of 40% to 45% with some diastolic dysfunction. ASSESSMENT: 1. End-stage renal disease. 2. Hypertension. 3. Diastolic dysfunction with some left ventricular systolic dysfunction. I suspect this maybe related to hypertension. I am trying to review the echocardiogram, but the machines are having difficulty loading these for review, but clinically, I suspect this is hypertensive heart disease. Apparently, the patient is making small amounts of urine. Hopefully, his renal function can improve, he is on medicines for blood pressure. Job ID: [id number]
[2019-08-09] MEDS: Carvedilol 6.25 MG TAB PO SCH (19:11)
--- NOTE | 2019-08-09 19:20 | PRG ---
DATE OF SERVICE: 08/09/2019 SUBJECTIVE: Mr. Macias is a 38-year-old male, who was admitted for uremic signs and symptoms. He underwent emergent hemodialysis. His mentation and overall condition are much improved with dialysis. He was also started on lisinopril and carvedilol due to the decreased EF. No new complaints today. He is feeling better. He underwent a 4-hour hemodialysis without any difficulty. OBJECTIVE: VITAL SIGNS: Blood pressure is 160/90, heart rate 77, respiratory rate 18, temperature 98.8, and pulse ox 94%. GENERAL: Noted to be awake, alert, comfortable, not in distress. SKIN: Adequate turgor. HEENT: Pale conjunctivae. Anicteric sclerae. NECK: No neck mass. No carotid bruits. No JVD. CHEST: No deformities. LUNGS: Clear breath sounds. HEART: Normal sinus rhythm. No murmur. No gallops. No rubs. ABDOMEN: Globular, soft, nontender. No masses. EXTREMITIES: No edema. No deformities. MEDICATIONS: Medications of August 09, 2019, reviewed. LABORATORY DATA: Laboratories of August 09, 2019; white count 9.6, hemoglobin 8.5. Sodium 135, potassium 4.4, chloride 102, carbon dioxide 22, BUN 41, creatinine 8.22, and calcium 6.9. BNP 1502. Serologies; HIV negative, hepatitis B and C are negative. ASSESSMENT AND PLAN: 1. Chronic renal failure/end-stage renal disease. Possibility of diabetic nephropathy with his poorly controlled diabetes as well as presence of proteinuria in the urine. 2. The patient has been tolerating his dialysis. Consider ordering an SONALI and ANCA to complete the workup for his proteinuria. 3. Anemia, currently on weekly Epogen, p.r.n. blood transfusion. 4. Hypocalcemia-currently on Tums and calcitriol. Job ID: [id number]
--- NOTE | 2019-08-10 05:33 | PDOC.FM ---
- Subjective Subjective: Patient doing well this morning, no complaints. Denies cp, sob, abdominal pain. Patient's reports that they are still waiting on bed placement at outpatient dialysis. She states that per Dr. Hatfield he would likely stay through the weekend for continued care and assurance that he has outpatient bed placement. She also asked about the letter that was written for patient's mother to possibly get a visa to visit. Per chart review Dr. Oliva wrote the letter yesterday. Discussed with her that I would talk with CM today and give them an update. Patient and agreeable to current plan of care at this time. - Objective Vital Signs & Weight: Vital Signs (12 hours) Temp Pulse Resp BP BP Pulse Ox 08/10/19 00:00 98.1 F 79 18 143/81 H 08/09/19 21:29 98.9 F 79 16 136/83 92 L 08/09/19 20:00 95 08/09/19 19:11 138/78 08/09/19 19:05 98.6 F 83 18 138/78 94 L Weight Weight 72.439 kg Most Recent Monitor Data Heart Rate from ECG 80 NIBP 137/82 NIBP BP-Mean 100 Respiration from ECG 21 SpO2 98 I&O: 08/08/19 08/09/19 08/10/19 06:59 06:59 06:59 Intake Total 240 350 Output Total 325 Balance -85 350 Result Diagrams: 08/10/19 06:11 08/10/19 06:11 Phys Exam - Physical Examination Constitutional: NAD HEENT: moist MMs, sclera anicteric Neck: supple, full ROM Respiratory: no wheezing, clear to auscultation bilateral Cardiovascular: RRR, no significant murmur Gastrointestinal: soft, non-tender Musculoskeletal: no edema, pulses present Neurological: non-focal, moves all 4 limbs Lymphatic: no nodes Psychiatric: normal affect, A&O x 3 Skin: no rash, normal turgor Dx/Plan (1) Acute renal failure Status: Acute (2) Fluid overload Code(s): E87.70 - FLUID OVERLOAD, UNSPECIFIED Status: Acute (3) Normocytic anemia Code(s): D64.9 - ANEMIA, UNSPECIFIED Status: Chronic - Plan Plan: Patient is a 38M with PMHx of cocaine abuse and 10pack year smoking hx that is admitted for acute renal failure and fluid overload Plan: # Acute renal failure Positive cocaine, hx of cocaine, undiagnosed HTN could be cause of renal failure. - Differential: untreated HTN, familial - Continue dialysis via fem line per Dr. Hatfield's recs. Received hemodialysis yesterday - A1C 4.7, CK 838, unlikely sources - feNa elevated, intra-renal process - SONALI and ANCA pending per Dr. Hatfield's recs for other causes of proteinuria - U/S revealed parynchemal involvement - less likely infectious, Hep Panel negative, HIV negative, Procal negative - Per Dr. Hatfield, will follow up with Dialysis Unit in [place]. CM aware and continues to work on this - Will f/u with CM today about the status of the visa letter that patient's could take to the [place] [employer] # Restrictive Diastolic Cardiomyopathy Possibly secondary to uremia Echo: EF 40-45% - Cards consulted; thought that this is diastolic dysfunction with some left ventricular systolic dysfunction, likely due to hypertensive heart disease; appreciate continued recs - Started on lisinopril and coreg, continue # Elevated ESR - possibly secondary to acute renal failure, will continue to follow # HTN - Nifedipine, carvedilol; lisinopril to start this am - Labetalol PRN # Hx of fever - Afebrile overnight, no signs of infection on exam - Procal negative - Denies travel to [place] or TB contacts # Normocytic Anemia s/p 1 uprbc on 08/08 with dialysis. Hgb 8.5 on 08/09. - Iron studies revealed anemia of chronic disease, retic 2.3, FOBT negative; likely 2/2 ARF - EPO during dialysis, iron sulfate PO # Fluid Overload - Likely 2/2 ARF, BNP 2851> 1502 # Hypophosphatemia # Hyperparathyroid # Hypocalcemia - Calcium corrects to low normal. Parathyroid, phosphate are likely elevated due to renal failure Fluids: TKO Code: full PPx: scd Dispo: > 2 midnight, pending outpt dialysis bed placement and card's recs for discharge. Addendum - Attending - Attending Attestation Date/Time: 08/10/19 6710 I personally evaluated the patient and discussed the management with Dr. Islas I agree with the History, Examination, Assessment and Plan documented above with any addition or exceptions noted below - Patient without complaints. Afebrile VSS. A/P: 1) ESRD- on HD; continue HD; consult surgery for permanent dialysis access. 2) HTN- adjust BP meds. 3) Diastolic HF - appreciate cardiology input.
[2019-08-10 06:41] LABS: Band 2 % (5-11); Eosinophils 8 % (0-10); Hemoglobin 8.8 g/dL (14.0-18.0); Lymphocytes 29 % (21-51); MDiff Complete? YES; Mean Corpuscular HGB CONC 34.6 g/dL (32.0-36.0); Mean Corpuscular Hemoglobin 30.1 pg (27.0-31.0); Mean Platelet Volume 7.3 fL (7.4-10.4); Monocytes 2 % (0-10); Neutrophil 59 % (42-75); Platelet Count 254 thou/uL (130-400); RBC Distribution Width 16.4 % (11.5-14.5); Red Blood Cell (RBC) Count 2.92 mill/uL (4.70-6.10); White Blood Cell (WBC) Count 8.3 thou/uL (4.8-10.8)
[2019-08-10 06:42] LABS: Anion Gap 14 mmol/L (10-20); BUN (Urea Nitrogen) 25 mg/dL (8.9-20.6); Calc. Creatinine Clearance 17 mL/min (70-130); Calcium 7.6 mg/dL (7.8-10.44); Carbon Dioxide 28 mmol/L (22-29); Chloride 102 mmol/L (98-107); Estimated GFR-MDRD 10; Glucose 84 mg/dL (70-105); Potassium 4.1 mmol/L (3.5-5.1); Sodium 140 mmol/L (136-145)
[2019-08-10] MEDS: Calcium Carbonate 500 MG ChewTAB PO SCH ×4 (08:13→23:31)
[2019-08-10] MEDS: Calcitriol 0.25 MCG CAP PO SCH (08:14)
[2019-08-10] MEDS: Carvedilol 6.25 MG TAB PO SCH ×2 (08:14→17:36)
[2019-08-10] MEDS: NIFEdipine XL 30 MG TAB PO SCH (08:14)
[2019-08-10] MEDS: Ferrous Sulfate 325 MG TAB PO SCH ×2 (08:14→17:36)
[2019-08-10] MEDS ORDERED: Lisinopril 2.5 MG TAB PO SCH ×2 (09:00→11:12)
[2019-08-10] MEDS ORDERED: Lisinopril 10 MG TAB PO SCH (11:30)
--- NOTE | 2019-08-10 11:30 | PRG ---
DATE OF SERVICE: 08/10/2019 SUBJECTIVE: Mr. Macias is a 38-year-old male, who was admitted for uremia and he underwent emergent hemodialysis. Since dialysis in the last several days, he is feeling much better. We are currently making arrangements for outpatient dialysis with this patient. The exact etiology of his renal failure is uncertain, but diabetic nephropathy is a possibility with him. The patient will be referred to Surgery for AV fistula placement and cuffed dialysis catheter placement. OBJECTIVE: VITAL SIGNS: Blood pressure is 183/102, heart rate 76, respiratory rate 18, temperature 98.5, and pulse ox 98%. GENERAL: Awake, alert, comfortable, not in distress. SKIN: Adequate turgor. HEENT: Pinkish conjunctivae. Anicteric sclerae. NECK: No neck mass. No carotid bruits. No JVD. CHEST: No deformities. LUNGS: Clear breath sounds. HEART: Normal sinus rhythm. No murmur. No gallops. No rubs. ABDOMEN: Globular, soft, nontender. No masses. EXTREMITIES: No edema. No deformities. MEDICATIONS: Medications of August 10, 2019, was reviewed. LABORATORY DATA: Laboratories of August 10, 2019; hemoglobin 8.8. Sodium 140, potassium 4.1, chloride 102, carbon dioxide 28, BUN 25, creatinine 6.21, calcium 7.6, BNP 1502. ASSESSMENT AND PLAN: 1. Chronic renal failure/ESRD continuing 3 times a week hemodialysis. Refer to Surgery for AV fistula placement and cuffed hemodialysis catheter placement. Awaiting outpatient dialysis placement. 2. Anemia, continuing weekly Epogen. 3. Hypocalcemia/elevated PTH-on calcitriol. 4. Hypertension. Increase lisinopril from 2.5 to 10 mg tablet once a day. 5. Agree with current management. Job ID: [id number]
[2019-08-10] MEDS: Calcium Carbonate 500 MG ChewTAB PO PRN (23:30)
[2019-08-10] MEDS: Acetaminophen 325 MG TAB PO PRN (23:30)
--- NOTE | 2019-08-11 03:06 | EKG ---
Test Reason : Blood Pressure : / mmHG Vent. Rate : 080 BPM Atrial Rate : 080 BPM P-R Int : 124 ms QRS Dur : 082 ms QT Int : 458 ms P-R-T Axes : 035 011 089 degrees QTc Int : 528 ms Normal sinus rhythm Prolonged QT Abnormal ECG Confirmed by TERESA LOWERY D.O. ([id number]), sound editor SHELDON COE ([id number]) on 08/11/2019 3:05:15 AM Referred By: Confirmed By:TERESA LOWERY D.O.
--- NOTE | 2019-08-11 05:15 | PDOC.FM ---
- Subjective Subjective: Patient doing well this morning. Discussed that he will likely need surgery for an AV fistula and cuffed dialysis cath placement, with continued waiting for outpatient dialysis bed placement. Patient agreeable to current plan of care with no complaints. - Objective Vital Signs & Weight: Vital Signs (12 hours) Temp Pulse Resp BP Pulse Ox 08/10/19 19:28 99.9 F H 87 16 148/82 H 93 L Weight Weight 72.439 kg Most Recent Monitor Data Heart Rate from ECG 80 NIBP 137/82 NIBP BP-Mean 100 Respiration from ECG 21 SpO2 98 I&O: 08/09/19 08/10/19 08/11/19 06:59 06:59 06:59 Intake Total 350 240 Balance 350 240 Result Diagrams: 08/11/19 07:08/11/19 07:19 Phys Exam - Physical Examination Constitutional: NAD HEENT: moist MMs, sclera anicteric Neck: supple, full ROM Respiratory: no wheezing, clear to auscultation bilateral Cardiovascular: RRR, no significant murmur Gastrointestinal: soft, non-tender Musculoskeletal: no edema, pulses present Neurological: normal sensation, moves all 4 limbs Lymphatic: no nodes Psychiatric: normal affect, A&O x 3 Skin: normal turgor, cap refill <2 seconds Dx/Plan (1) Acute renal failure Status: Acute (2) Fluid overload Code(s): E87.70 - FLUID OVERLOAD, UNSPECIFIED Status: Acute (3) Normocytic anemia Code(s): D64.9 - ANEMIA, UNSPECIFIED Status: Chronic - Plan Plan: Plan: Patient is a 38M with PMHx of cocaine abuse and 10pack year smoking hx that is admitted for acute renal failure and fluid overload # Acute renal failure Positive cocaine, hx of cocaine, undiagnosed HTN could be cause of renal failure. - Differential: untreated HTN, familial - Continue dialysis via fem line per Dr. Hatfield's recs. - A1C 4.7, CK 838, unlikely sources - feNa elevated, intra-renal process - SONALI and ANCA pending per Dr. Hatfield's recs for other causes of proteinuria - U/S revealed parynchemal involvement - less likely infectious, Hep Panel negative, HIV negative, Procal negative - Per Dr. Hatfield, will follow up with Dialysis Unit in [place]. aware and continues to work on this - Consult put in for Dr. Richardson on monday for AV fistula/cuffed dialysis catheter placement # Restrictive Diastolic Cardiomyopathy Possibly secondary to uremia Echo: EF 40-45% - Cards consulted; thought that this is diastolic dysfunction with some left ventricular systolic dysfunction, likely due to hypertensive heart disease; appreciate continued recs - Started on lisinopril and coreg, lisinopril dosage increased yesterday # Elevated ESR - possibly secondary to acute renal failure, will continue to follow # HTN - Nifedipine, carvedilol; lisinopril dosage increased to 10mg yesterday; BP appears better controlled - Labetalol PRN # Hx of fever - Afebrile overnight, no signs of infection on exam - Procal negative - Denies travel to [place] or TB contacts # Normocytic Anemia s/p 1 uprbc on 08/08 with dialysis. Hgb 8.5 on 08/09. - Iron studies revealed anemia of chronic disease, retic 2.3, FOBT negative; likely 2/2 ARF - EPO during dialysis, iron sulfate PO # Fluid Overload - Likely 2/2 ARF, BNP 2851> 1502 # Hypophosphatemia # Hyperparathyroid # Hypocalcemia - Calcium corrects to low normal. Parathyroid, phosphate are likely elevated due to renal failure Fluids: TKO Code: full PPx: scd Dispo: > 2 midnight, pending outpt dialysis bed placement, surgery consult on monday, and card's recs for discharge. Addendum - Attending - Attending Attestation Date/Time: 08/11/19 1202 I personally evaluated the patient and discussed the management with Dr. Islas I agree with the History, Examination, Assessment and Plan documented above with any addition or exceptions noted below - Patient without complaints. Afebrile VSS. A/P: 1) ESRD - on HD; needs permanent dialysis access. Consult surgery in AM. Continue HD as per nephrology .
[2019-08-11 08:08] LABS: Anion Gap 15 mmol/L (10-20); BUN (Urea Nitrogen) 35 mg/dL (8.9-20.6); Calc. Creatinine Clearance 13 mL/min (70-130); Calcium 7.9 mg/dL (7.8-10.44); Carbon Dioxide 24 mmol/L (22-29); Chloride 103 mmol/L (98-107); Estimated GFR-MDRD 8; Glucose 77 mg/dL (70-105); Potassium 4.7 mmol/L (3.5-5.1); Sodium 137 mmol/L (136-145)
[2019-08-11 08:33] LABS: Eosinophils 10 % (0-10); Hemoglobin 8.6 g/dL (14.0-18.0); Lymphocytes 20 % (21-51); MDiff Complete? YES; Mean Corpuscular HGB CONC 33.7 g/dL (32.0-36.0); Mean Corpuscular Hemoglobin 29.6 pg (27.0-31.0); Mean Platelet Volume 7.6 fL (7.4-10.4); Monocytes 1 % (0-10); Neutrophil 69 % (42-75); Platelet Count 251 thou/uL (130-400); RBC Distribution Width 17.1 % (11.5-14.5); White Blood Cell (WBC) Count 9.7 thou/uL (4.8-10.8)
[2019-08-11] MEDS: Carvedilol 6.25 MG TAB PO SCH ×2 (10:35→17:22)
[2019-08-11] MEDS: Lisinopril 10 MG TAB PO SCH (10:35)
[2019-08-11] MEDS: Ferrous Sulfate 325 MG TAB PO SCH ×2 (10:36→17:22)
[2019-08-11] MEDS: Calcitriol 0.25 MCG CAP PO SCH (10:36)
[2019-08-11] MEDS: NIFEdipine XL 30 MG TAB PO SCH (10:36)
[2019-08-11] MEDS: Calcium Carbonate 500 MG ChewTAB PO SCH ×3 (10:37→17:22)
[2019-08-12] MEDS: Calcium Carbonate 500 MG ChewTAB PO PRN (01:02)
[2019-08-12] MEDS: Acetaminophen 325 MG TAB PO PRN (01:03)
--- NOTE | 2019-08-12 06:39 | PDOC.FM ---
- Subjective Subjective: Pt is doing well w/o any complaints. He did not have any questions concerning his procedure. He rested well through the night. Denies any pain. - Objective Vital Signs & Weight: Vital Signs (12 hours) Temp Pulse Resp BP Pulse Ox 08/12/19 04:16 98.6 F 79 18 149/85 H 95 08/11/19 19:33 98.3 F 79 20 126/71 96 Weight Weight 72.439 kg Most Recent Monitor Data Heart Rate from ECG 80 NIBP 137/82 NIBP BP-Mean 100 Respiration from ECG 21 SpO2 98 I&O: 08/10/19 08/11/19 08/12/19 06:59 06:59 06:59 Intake Total 240 Balance 240 Result Diagrams: 08/11/19 07:19 08/11/19 07:19 Phys Exam - Physical Examination Constitutional: NAD HEENT: PERRLA, moist MMs Respiratory: no wheezing, no rales, clear to auscultation bilateral Cardiovascular: RRR, no significant murmur Gastrointestinal: soft, non-tender, no distention Musculoskeletal: no edema, pulses present Neurological: non-focal, normal sensation Dx/Plan (1) Acute renal failure Status: Acute (2) Fluid overload Code(s): E87.70 - FLUID OVERLOAD, UNSPECIFIED Status: Acute (3) Normocytic anemia Code(s): D64.9 - ANEMIA, UNSPECIFIED Status: Chronic (4) Hypertension Code(s): I10 - ESSENTIAL (PRIMARY) HYPERTENSION Status: Acute (5) Restrictive cardiomyopathy Code(s): I42.5 - OTHER RESTRICTIVE CARDIOMYOPATHY Status: Acute (6) Diastolic dysfunction Code(s): I51.89 - OTHER ILL-DEFINED HEART DISEASES Status: Acute - Plan Plan: Patient is a 38M with PMHx of cocaine abuse and 10pack year smoking hx that is admitted for acute renal failure and fluid overload # Acute renal failure Positive cocaine, hx of cocaine, undiagnosed HTN could be cause of renal failure. - Differential: untreated HTN, familial - Continue dialysis via fem line per Dr. Hatfield's recs. - A1C 4.7, CK 838, unlikely sources - feNa elevated, intra-renal process - SONALI and ANCA pending per Dr. Hatfield's recs for other causes of proteinuria - U/S revealed parynchemal involvement - less likely infectious, Hep Panel negative, HIV negative, Procal negative - Per Dr. Hatfield, will follow up with Dialysis Unit in [place]. CM aware and continues to work on this - Dr. Richardson will perform AV fistula/cuffed dialysis catheter placement today # Restrictive Diastolic Cardiomyopathy Possibly secondary to uremia Echo: EF 40-45% - Cards consulted; thought that this is diastolic dysfunction with some left ventricular systolic dysfunction, likely due to hypertensive heart disease; appreciate continued recs - Started on lisinopril and coreg, lisinopril dosage increased previously. Increase carvedilol today. # Elevated ESR - possibly secondary to acute renal failure, will continue to follow # HTN - Nifedipine, carvedilol; lisinopril dosage increased to 10mg. Will increase carvedilol at this time, - Labetalol PRN # Hx of fever - Afebrile overnight, no signs of infection on exam - Procal negative - Denies travel to [place] or TB contacts # Normocytic Anemia s/p 1 uprbc on 08/08 with dialysis. Hgb 8.5 on 08/09. - Iron studies revealed anemia of chronic disease, retic 2.3, FOBT negative; likely 2/2 ARF - EPO during dialysis, iron sulfate PO # Fluid Overload - Likely 2/2 ARF, BNP 2851> 1502 # Hypophosphatemia # Hyperparathyroid # Hypocalcemia - Calcium corrects to low normal. Parathyroid, phosphate are likely elevated due to renal failure Fluids: TKO Code: full PPx: scd Dispo: > 2 midnight, pending outpt dialysis bed placement, surgery consult on monday, and card's recs for discharge.
[2019-08-12] MEDS: Calcium Carbonate 500 MG ChewTAB PO SCH ×4 (08:08→17:35)
[2019-08-12] MEDS: Ferrous Sulfate 325 MG TAB PO SCH ×2 (08:08→17:35)
[2019-08-12] MEDS: Carvedilol 6.25 MG TAB PO SCH ×2 (08:08→17:35)
[2019-08-12 09:01] LABS: Anion Gap 14 mmol/L (10-20); BUN (Urea Nitrogen) 43 mg/dL (8.9-20.6); Calc. Creatinine Clearance 13 mL/min (70-130); Calcium 8.4 mg/dL (7.8-10.44); Carbon Dioxide 27 mmol/L (22-29); Chloride 104 mmol/L (98-107); Estimated GFR-MDRD 8; Glucose 82 mg/dL (70-105); Potassium 4.9 mmol/L (3.5-5.1); Sodium 140 mmol/L (136-145)
[2019-08-12 09:16] LABS: Hemoglobin 7.9 g/dL (14.0-18.0); Mean Corpuscular HGB CONC 34.4 g/dL (32.0-36.0); Mean Corpuscular Hemoglobin 30.2 pg (27.0-31.0); Mean Corpuscular Volume 87.8 fL (78.0-98.0); Mean Platelet Volume 7.3 fL (7.4-10.4); Platelet Count 248 thou/uL (130-400); Red Blood Cell (RBC) Count 2.62 mill/uL (4.70-6.10); White Blood Cell (WBC) Count 9.5 thou/uL (4.8-10.8)
--- NOTE | 2019-08-12 09:29 | PRG ---
DATE OF SERVICE: 08/12/2019 SUBJECTIVE: Mr. Macias is a 38-year-old male with known history of chronic renal failure. He was initially admitted due to uremic signs and symptoms. He underwent emergent hemodialysis. He is doing well since the dialysis. Surgery has been consulted for placement of a tunneled dialysis catheter and AV fistula. No other complaints today. No chest pain or shortness of breath. He is feeling better. OBJECTIVE: VITAL SIGNS: Blood pressure 168/89, heart rate 56, respiratory rate 16, temperature 98.4, and pulse ox 96%. GENERAL: The patient is awake, alert, comfortable, not in distress. SKIN: Adequate turgor. HEENT: He has slightly pale conjunctivae. Anicteric sclerae. NECK: No neck mass. No carotid bruits. No JVD. CHEST: No deformities. LUNGS: Clear breath sounds. HEART: Normal sinus rhythm. No murmur. No gallops. No rubs. ABDOMEN: Globular, soft, and nontender. No masses. EXTREMITIES: No edema. No deformities. MEDICATIONS: Medications of August 12, 2019, reviewed. LABORATORY DATA: Laboratories of August 11, 2019; white count 9.7, hemoglobin 8.6. Sodium 137, potassium 4.7, chloride 103, carbon dioxide 24, BUN 35, creatinine 7.9, and calcium 7.9. ASSESSMENT AND PLAN: 1. Chronic renal failure/end-stage renal disease. Continue current hemodialysis regimen. Fluid removal only as tolerated. We will change his dialysis schedule to a Monday, , and Monday. Surgery has been consulted - Dr. Richardson has seen the patient. There is a plan to have an arteriovenous fistula and cuffed dialysis catheter placed. 2. Hypertension. Continue current BP medications. 3. Anemia. Currently on weekly Epogen. Agree with current management. Job ID: [id number]
[2019-08-12] MEDS: Calcitriol 0.25 MCG CAP PO SCH ×2 (09:41→13:42)
[2019-08-12] MEDS: Lisinopril 10 MG TAB PO SCH ×2 (09:41→13:42)
[2019-08-12] MEDS: NIFEdipine XL 30 MG TAB PO SCH ×2 (09:42→13:41)
[2019-08-12] MEDS ORDERED: CEFAZOLIN 2 GM in Premix Bag 1 BAG IVPB SCH (09:45)
[2019-08-12] MEDS ORDERED: Heparin 10,000 UNITS/ 10 ML VIAL ONE (10:00)
[2019-08-12 11:17] LABS: Band 7 % (5-11); Eosinophils 7 % (0-10); Lymphocytes 26 % (21-51); MDiff Complete? YES; Monocytes 2 % (0-10); Neutrophil 58 % (42-75); Platelet Morphology Comment Appears Adequate; Polychromasia SLIGHT = 2-3 cells (100X) (0-2/hpf)
--- NOTE | 2019-08-12 15:58 | ULT ---
VASCULAR MAPPING OF THE UPPER EXTREMITIES: Date: 08/12/2019 HISTORY: 38-year-old male with end-stage renal disease. TECHNIQUE: Multiplanar grayscale sonographic imaging of the vascular structures of bilateral upper ex tremities obtained with color flow and spectral analysis. FINDINGS: The internal jugular vein, subclavian vein, and axillary vein patent bilaterally. VESSEL DIAMETER (mm) Right Brachial Artery 5.2 Right Radial Artery 2.1 Right Ulnar Artery 2.3 Left Brachial Artery 5.3 Left Radial Artery 1.7 Left Ulnar Artery 2.7 RIGHT CEPHALIC VEIN: Above Elbow Proximal 2.3 Above Elbow Mid 2.2 Above Elbow Distal 2.2 At Elbow 6.2 Below Elbow Proximal 2.0 Below Elbow Mid 2.2 Below Elbow Distal 2.0 RIGHT BASILIC VEIN: Above Elbow Proximal 5.4 Above Elbow Mid 4.6 Above Elbow Distal 4.6 At Elbow 3.4 Below Elbow Proximal 2.0 Below Elbow Mid 1.5 Below Elbow Distal 0.9 LEFT BASILIC VEIN: Above Elbow Proximal 4.9 Above Elbow Mid 4.5 Above Elbow Distal 3.8 At Elbow 2.7 Below Elbow Proximal 2.2 Below Elbow Mid 1.9 Below Elbow Distal 1.5 LEFT CEPHALIC VEIN: Above Elbow Proximal 2.1 Above Elbow Mid 1.5 Above Elbow Distal 2.4 At Elbow 2.5 Below Elbow Proximal 2.6 Below Elbow Mid 1.2 Below Elbow Distal 0.8 IMPRESSION: Vascular mapping ultrasound as detailed above. Transcribed Date/Time: 08/12/2019 5:38 PM
--- NOTE | 2019-08-12 17:32 | PRG ---
DATE OF SERVICE: 08/12/2019 Mr. Macias is currently in Dialysis, undergoing hemodialysis for end-stage renal disease secondary to hypertensive CKD. We will continue to follow with Dr. Hatfield. Job ID: [id number]
[2019-08-13] MEDS: Acetaminophen 325 MG TAB PO PRN (03:42)
[2019-08-13] MEDS: Carvedilol 6.25 MG TAB PO SCH ×2 (03:42→17:36)
[2019-08-13 06:18] LABS: Hemoglobin 9.3 g/dL (14.0-18.0); Mean Corpuscular HGB CONC 33.2 g/dL (32.0-36.0); Mean Corpuscular Hemoglobin 29.1 pg (27.0-31.0); Mean Corpuscular Volume 87.6 fL (78.0-98.0); Mean Platelet Volume 7.7 fL (7.4-10.4); Platelet Count 293 thou/uL (130-400); Red Blood Cell (RBC) Count 3.18 mill/uL (4.70-6.10); White Blood Cell (WBC) Count 11.6 thou/uL (4.8-10.8)
[2019-08-13 06:33] LABS: Anion Gap 17 mmol/L (10-20); BUN (Urea Nitrogen) 49 mg/dL (8.9-20.6); Calc. Creatinine Clearance 12 mL/min (70-130); Calcium 8.4 mg/dL (7.8-10.44); Carbon Dioxide 24 mmol/L (22-29); Chloride 99 mmol/L (98-107); Estimated GFR-MDRD 7; Glucose 95 mg/dL (70-105); Potassium 5.1 mmol/L (3.5-5.1); Sodium 135 mmol/L (136-145)
[2019-08-13 06:43] LABS: Band 3 % (5-11); Eosinophils 7 % (0-10); Lymphocytes 21 % (21-51); MDiff Complete? YES; Monocytes 2 % (0-10); Neutrophil 67 % (42-75)
--- NOTE | 2019-08-13 07:38 | PDOC.FM ---
- Subjective Subjective: Pt is doing well. He has no complaints. He is ready for fistula placement. He denies pain, fever. - Objective Vital Signs & Weight: Vital Signs (12 hours) Temp Pulse Resp BP BP Pulse Ox 08/13/19 04:00 98.6 F 72 20 130/80 93 L 08/13/19 03:42 168/78 H 08/12/19 20:00 98.6 F 79 20 175/99 H 98 Weight Weight 72.439 kg Most Recent Monitor Data Heart Rate from ECG 80 NIBP 137/82 NIBP BP-Mean 100 Respiration from ECG 21 SpO2 98 I&O: 08/12/19 08/13/19 08/14/19 06:59 06:59 06:59 Intake Total 2560 Balance 2560 Result Diagrams: 08/13/19 05:42 08/13/19 05:42 Phys Exam - Physical Examination Constitutional: NAD HEENT: PERRLA, moist MMs Respiratory: no wheezing, no rales, clear to auscultation bilateral Cardiovascular: RRR, no significant murmur Gastrointestinal: soft, non-tender, no distention Musculoskeletal: no edema, pulses present Neurological: normal sensation, moves all 4 limbs Dx/Plan (1) Acute renal failure Status: Acute (2) Fluid overload Code(s): E87.70 - FLUID OVERLOAD, UNSPECIFIED Status: Acute (3) Normocytic anemia Code(s): D64.9 - ANEMIA, UNSPECIFIED Status: Chronic (4) Hypertension Code(s): I10 - ESSENTIAL (PRIMARY) HYPERTENSION Status: Acute (5) Restrictive cardiomyopathy Code(s): I42.5 - OTHER RESTRICTIVE CARDIOMYOPATHY Status: Acute (6) Diastolic dysfunction Code(s): I51.89 - OTHER ILL-DEFINED HEART DISEASES Status: Acute - Plan Plan: Patient is a 38M with PMHx of cocaine abuse and 10pack year smoking hx that is admitted for acute renal failure and fluid overload # Acute renal failure Positive cocaine, hx of cocaine, undiagnosed HTN could be cause of renal failure. - Differential: untreated HTN, familial - Continue dialysis via fem line per Dr. Hatfield's recs. - A1C 4.7, CK 838, unlikely sources - feNa elevated, intra-renal process - SONALI and ANCA pending per Dr. Hatfield's recs for other causes of proteinuria - U/S revealed parynchemal involvement - less likely infectious, Hep Panel negative, HIV negative, Procal negative - Per Dr. Hatfield, will follow up with Dialysis Unit in [place]. CM aware and continues to work on this - Dr. Richardson will perform AV fistula/cuffed dialysis catheter placement today, 08/13/19. Pt was NPO at midnight. # Restrictive Diastolic Cardiomyopathy Possibly secondary to uremia Echo: EF 40-45% - Cards consulted; thought that this is diastolic dysfunction with some left ventricular systolic dysfunction, likely due to hypertensive heart disease; appreciate continued recs - Started on lisinopril and coreg # Elevated ESR - possibly secondary to acute renal failure, will continue to follow # HTN - Nifedipine, carvedilol; lisinopril - Labetalol PRN # Hx of fever - Afebrile overnight, no signs of infection on exam - Procal negative - Denies travel to [place] or TB contacts # Normocytic Anemia s/p 1 uprbc on 08/08 with dialysis. Hgb 8.5 on 08/09. - Iron studies revealed anemia of chronic disease, retic 2.3, FOBT negative; likely 2/2 ARF - EPO during dialysis, iron sulfate PO # Fluid Overload - Likely 2/2 ARF, BNP 2851> 1502 # Hypophosphatemia # Hyperparathyroid # Hypocalcemia - Calcium corrects to low normal. Parathyroid, phosphate are likely elevated due to renal failure Fluids: TKO Code: full PPx: scd Dispo: > 2 midnight, pending outpt dialysis bed placement, surgery consult on monday for AV fistula/cuffed dialysis catheter; and card's recs for discharge.
[2019-08-13] MEDS: NIFEdipine XL 30 MG TAB PO SCH (08:06)
[2019-08-13] MEDS: Ferrous Sulfate 325 MG TAB PO SCH ×2 (08:08→17:35)
[2019-08-13] MEDS: Lisinopril 10 MG TAB PO SCH (08:08)
[2019-08-13] MEDS: Calcium Carbonate 500 MG ChewTAB PO SCH ×3 (08:09→17:35)
[2019-08-13] MEDS: Calcitriol 0.25 MCG CAP PO SCH (09:57)
--- NOTE | 2019-08-13 12:05 | PRG ---
DATE OF SERVICE: 08/13/2019 Mr. Macias is currently undergoing hemodialysis and will be discharged today after today's session. Job ID: [id number]
[2019-08-13 14:56] LABS: ANA Symphony (Qualitative) Negative (Negative); ANA Symphony (Quantitative) 0.3 Ratio (< 0.7 Negative); dsDNA IgG Antibody 3.8 IU/mL (<10 Negative)
[2019-08-13] MEDS ORDERED: CEFAZOLIN 2 GM in Premix Bag 1 BAG IVPB SCH (16:45)
--- NOTE | 2019-08-13 16:58 | PRG ---
DATE OF SERVICE: 08/13/2019 SUBJECTIVE: Mr. Macias is scheduled for surgery today. He had his right arm block regional for his right arm fistula, on hemodialysis catheter. By 4:30 p.m., there was no anesthesia staff available to do his planned operation, and in addition, OR instruments had not been sterilized, thus his surgery is canceled today and rescheduled for Monday later morning. We will resume his diet tonight. PLAN: Dialysis early in the morning, and if he cannot be done with dialysis by between 10:00 and 11:00 a.m., this should be postponed until after surgery. Job ID: [id number]
[2019-08-13] MEDS: Calcium Carbonate 500 MG ChewTAB PO PRN (20:10)
[2019-08-14] MEDS: Calcium Carbonate 500 MG ChewTAB PO PRN (03:30)
[2019-08-14] MEDS: Acetaminophen 325 MG TAB PO PRN (03:30)
[2019-08-14] MEDS: Carvedilol 6.25 MG TAB PO SCH ×2 (03:31→17:44)
[2019-08-14 06:10] LABS: Band 4 % (5-11); Eosinophils 10 % (0-10); Hemoglobin 9.3 g/dL (14.0-18.0); Lymphocytes 28 % (21-51); MDiff Complete? YES; Mean Corpuscular HGB CONC 34.5 g/dL (32.0-36.0); Mean Corpuscular Hemoglobin 30.4 pg (27.0-31.0); Mean Corpuscular Volume 88.2 fL (78.0-98.0); Mean Platelet Volume 7.7 fL (7.4-10.4); Monocytes 6 % (0-10); Neutrophil 52 % (42-75); Platelet Count 281 thou/uL (130-400); RBC Distribution Width 16.9 % (11.5-14.5); Red Blood Cell (RBC) Count 3.06 mill/uL (4.70-6.10); White Blood Cell (WBC) Count 10.4 thou/uL (4.8-10.8)
[2019-08-14 06:11] LABS: Anion Gap 21 mmol/L (10-20); BUN (Urea Nitrogen) 58 mg/dL (8.9-20.6); Calc. Creatinine Clearance 11 mL/min (70-130); Carbon Dioxide 21 mmol/L (22-29); Chloride 101 mmol/L (98-107); Estimated GFR-MDRD 6; Glucose 98 mg/dL (70-105); Potassium 4.8 mmol/L (3.5-5.1); Sodium 138 mmol/L (136-145)
--- NOTE | 2019-08-14 06:48 | PDOC.FM ---
- Subjective Subjective: Pt was at procedures. - Objective Vital Signs & Weight: Vital Signs (12 hours) Temp Pulse Resp BP BP BP Pulse Ox 08/14/19 04:00 98.9 F 75 20 159/97 H 95 08/14/19 03:31 159/97 H 08/13/19 20:00 96 08/13/19 19:32 98.6 F 74 20 146/82 H 96 Weight Weight 72.439 kg Most Recent Monitor Data Heart Rate from ECG 80 NIBP 137/82 NIBP BP-Mean 100 Respiration from ECG 21 SpO2 98 I&O: 08/12/19 08/13/19 08/14/19 06:59 06:59 06:59 Intake Total 2560 1320 Balance 2560 1320 Result Diagrams: 08/14/19 05:35 08/14/19 05:35 Dx/Plan (1) Acute renal failure Status: Acute (2) Fluid overload Code(s): E87.70 - FLUID OVERLOAD, UNSPECIFIED Status: Acute (3) Normocytic anemia Code(s): D64.9 - ANEMIA, UNSPECIFIED Status: Chronic (4) Hypertension Code(s): I10 - ESSENTIAL (PRIMARY) HYPERTENSION Status: Acute (5) Restrictive cardiomyopathy Code(s): I42.5 - OTHER RESTRICTIVE CARDIOMYOPATHY Status: Acute (6) Diastolic dysfunction Code(s): I51.89 - OTHER ILL-DEFINED HEART DISEASES Status: Acute - Plan Plan: Patient is a 38M with PMHx of cocaine abuse and 10pack year smoking hx that is admitted for acute renal failure and fluid overload # Acute renal failure Positive cocaine, hx of cocaine, undiagnosed HTN could be cause of renal failure. - Differential: untreated HTN, familial - Continue dialysis via fem line per Dr. Hatfield's recs. - A1C 4.7, CK 838, unlikely sources - feNa elevated, intra-renal process - SONALI and ANCA pending per Dr. Hatfield's recs for other causes of proteinuria - U/S revealed parynchemal involvement - less likely infectious, Hep Panel negative, HIV negative, Procal negative - Per Dr. Hatfield, will follow up with Dialysis Unit in [place]. aware and continues to work on this - Dr. Richardson will perform AV fistula/cuffed dialysis catheter placement today, 08/14/19 - unable to perform yesterday due to scheduling. Pt was NPO at midnight. 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 Hgb 8.5 on 08/09. - Iron studies revealed anemia of chronic disease, retic 2.3, FOBT negative; likely 2/2 ARF - EPO during dialysis, iron sulfate PO # Fluid Overload - Likely 2/2 ARF, BNP 2851> 1502 # Hypophosphatemia # Hyperparathyroid # Hypocalcemia - Calcium corrects to low normal. Parathyroid, phosphate are likely elevated due to renal failure Fluids: TKO Code: full PPx: scd Dispo: > 2 midnight, pending outpt dialysis bed placement, surgery consult on Monday for AV fistula/cuffed dialysis catheter; then pending discharge. Addendum - Attending - Attending Attestation Date/Time: 08/14/191929 I personally evaluated the patient and discussed the management with Dr. Kaur I agree with the History, Examination, Assessment and Plan documented above with any addition or exceptions noted below. Patient now back for OR. Restless and in pain. Reports pain for head to hand on right side where fistula was performed. States 10/10 pain. Constant baseline pain but stabbing/numbing pain intermittently that makes his body contort. Reports no previous pain like this. States he feels like his arm is going numb. Reports it stops at his finger tips. Too nervous to move his arm. Can wiggle his fingers. On exam he is viably in pain. Not able to get comfortable. Tearful. Arm is warm to touch. Cap refill < 2 sec in all finger tips. Radial pulse palpated. Unable to palpate ulnar pulse. Incisions intact. Dermabond in place. No erythema. 1. AKF on CKD now with ESRD: Etiology unknown. Patient without prior medical care. Requiring urgent HD upon admission. Now s/p fistula. Dr. Richardson has been notified of pain. He will follow up later tonight. Will treat with oral and IV medications. Follow and trend labs. Nephro following. Ebony
[2019-08-14] MEDS: Calcium Carbonate 500 MG ChewTAB PO SCH ×3 (07:27→17:45)
[2019-08-14] MEDS: Calcitriol 0.25 MCG CAP PO SCH (08:09)
[2019-08-14] MEDS: Ferrous Sulfate 325 MG TAB PO SCH ×2 (08:09→17:43)
[2019-08-14] MEDS: NIFEdipine XL 30 MG TAB PO SCH (08:09)
[2019-08-14] MEDS: Lisinopril 10 MG TAB PO SCH (08:12)
--- NOTE | 2019-08-14 09:39 | PRG ---
DATE OF SERVICE: 08/14/2019 SUBJECTIVE: Mr. Macias is a 38-year-old male with ESRD and was admitted due to uremic signs and symptoms, so he underwent hemodialysis. Doing well overall. No other complaints. He has a schedule for a cuffed hemodialysis catheter and AV fistula placement today. OBJECTIVE: VITAL SIGNS: Blood pressure 150/84, heart rate 68, respiratory rate 14, temperature 98.6, and pulse ox 95%. GENERAL: The patient is awake, alert, comfortable, not in distress. SKIN: Adequate turgor. HEENT: Slightly pale conjunctivae. Anicteric sclerae. NECK: No neck mass. No carotid bruits. No JVD. CHEST: No deformities. LUNGS: Clear breath sounds. No wheezing. No crackles. HEART: Normal sinus rhythm. No murmur. No gallops. No rubs. ABDOMEN: Globular, soft, and nontender. No masses. EXTREMITIES: No edema. No deformities. MEDICATIONS: Medications of August 14, 2019, reviewed. LABORATORY DATA: Laboratories of August 14, 2019; white count 10.4 and hemoglobin 9.3. Sodium 138, potassium 4.8 chloride 101 carbon dioxide 21, BUN 58, creatinine 9.9, glucose 98, and calcium 8. ASSESSMENT AND PLAN: 1. Chronic renal failure/end-stage renal disease, hemodialysis today for 3 hours. We will resume back this patient on Monday, , and Monday dialysis regimen. 2. Dialysis access placement-the patient is scheduled for AV fistula as well as for a cuffed hemodialysis catheter. 3. Anemia. Continuing weekly Epogen. 4. Secondary hyperparathyroidism. The patient started on calcitriol 0.25 mcg tablet daily. Agree with current management. Job ID: [id number]
[2019-08-14] MEDS ORDERED: PROPOFOL 200 MG/20 ML VIAL ONE (10:33)
[2019-08-14] MEDS ORDERED: Heparin 10,000 UNITS/ 10 ML VIAL ONE (10:33)
--- NOTE | 2019-08-14 13:09 | PRG ---
DATE OF SERVICE: 08/14/2019 Mr. Macias has been sent for a fistula placement for his chronic dialysis. Job ID: [id number]
[2019-08-14] MEDS ORDERED: Fentanyl 100 MCG/2 ML VIAL ONE (13:46)
[2019-08-14] MEDS ORDERED: Midazolam HCl 2 mg/2 ml Vial ONE (13:46)
[2019-08-14] MEDS ORDERED: Bupivacaine PF 0.75% SDV 10 ML ONE (13:47)
[2019-08-14] MEDS ORDERED: Chloroprocaine HCl/PF 20 ML VIAL ONE (13:47)
[2019-08-14] MEDS ORDERED: Lidocaine 2% PF 5 ML VIAL ONE (14:04)
[2019-08-14] MEDS ORDERED: Protamine Sulfate 50 MG/5 ML VIAL ONE (14:04)
[2019-08-14] MEDS ORDERED: Sodium Chloride 0.9% 0 ML ONE (14:04)
[2019-08-14] MEDS ORDERED: Heparin 5,000 UNITS/ML VIAL ONE (14:04)
[2019-08-14] MEDS ORDERED: Heparin 10,000 UNITS/1 ML VIAL ONE (14:04)
[2019-08-14] MEDS ORDERED: Bupivacaine HCl 0.5%/Epinephrine 1:200,000/PF 30 ml Vial ONE (14:04)
[2019-08-14] MEDS ORDERED: Sodium Chloride 0.9% 10 ML ONE (14:10)
[2019-08-14] MEDS ORDERED: Ondansetron HCl/PF 4 MG/2 ML Vial IVP PRN (14:11)
[2019-08-14 16:09] LABS: Cytoplasmic (C-ANCA) <1:20 titer (Neg:<1:20); Myeloperoxidase AutoAbs <9.0 U/mL (0.0-9.0); Perinuclear (P-ANCA) <1:20 titer (Neg:<1:20); Proteinase-3 AutoAbs Less than 3.5 U/mL (0.0-3.5)
--- NOTE | 2019-08-14 16:35 | RAD ---
PORTABLE UPRIGHT FRONTAL CHEST RADIOGRAPH: 08/14/19 COMPARISON: 08/09/19 HISTORY: Central line placement. FINDINGS: There is a right sided dialysis catheter with distal tip overlying the region of the cavoatrial junct ion. No pneumothorax or pleural fluid. No focal consolidation or alveolar edema. There is pulmonary v ascular congestion. IMPRESSION: Right sided dialysis catheter with no evidence for pneumothorax. POS: TPC
--- NOTE | 2019-08-14 16:40 | OP ---
DATE OF PROCEDURE: 08/14/2019 PREOPERATIVE DIAGNOSIS: End-stage renal disease. POSTOPERATIVE DIAGNOSIS: End-stage renal disease. PROCEDURE PERFORMED: Right internal jugular cuffed tunneled hemodialysis catheter. Ultrasound and fluoroscopy used. Right arm primary arteriovenous fistula inflow, proximal radial artery outflow cephalic vein only. No communication of the basilic vein. Calibrated 4 mm coronary dilator. Excellent Doppler signal and good distention in the upper arm cephalic vein. ANESTHESIA: Regional, TIVA, local 0.5% Marcaine with epinephrine 30 mL mixed with 2% Xylocaine 10 mL. DESCRIPTION OF PROCEDURE: The patient was taken to the operating room, where under intravenous sedation and regional anesthesia, neck and chest and right upper extremity were prepared with ChloraPrep and draped in routine fashion. Local anesthetic was infiltrated in the skin and subcutaneous tissue for placement of hemodialysis catheter and supplement the regional anesthesia. Ultrasound guidance was used to cannulate the right internal jugular vein, and J-wire threaded, trocar catheter removed, skin site enlarged sharply, stab incision was made over the right chest. Using the tunneling device, pre-curved [employer] cuffed-tunneled hemodialysis catheter tunneled between the 2 incisions, placed the fabric cuff beneath the skin and catheter secured with 2 interrupted sutures of 3-0 nylon. Sterile dressing applied. The patient tolerated the procedure well as stab incision was made at the J-wire entry site, and the small and medium sized dilators were placed over the J-wire into the internal artery jugular vein and removed. Dilator and peel-away sheath placed over the J-wire in the superior vena cava, and dilator and J-wire were removed. Catheter placed over the peel-away sheath. The peel-away sheath removed. Platysma was approximated with 4-0 Monocryl, skin with subdermal 4-0 Monocryl, and [place] glue applied. Each port aspirated blood and flushed with saline solution and heparinized saline solution 1000 units of heparin per mL indicating volume of the port. Dermabond and sterile dressings applied. Fluoroscopic images revealed good line placement. Attention was then turned to the right arm, where a longitudinal incision was made below the antecubital fossa overlying the area between the brachial artery and cephalic vein. The cephalic vein was excellent caliber. A small incision was made at the wrist. The cephalic vein here was too small for a fistula and this was closed by approximating subcutaneous tissues with 3-0 Monocryl, skin with subdermal 4-0 Monocryl and [place] glue applied. The patient was given 6000 units of heparin intravenously. This antecubital vein and cephalic vein dissected free. Perforating branch antecubital vein dissected free, branches divided between clips and 4-0 silk ties and spatulated over branch points and interrogated with coronary dilators, placing the coronary dilators from 2 mm to 4 mm coronary dilator throughout the length of the cephalic vein as long as the dilators were passed. There was no obstruction. There was excellent backflow. It was flushed with heparinized saline solution. An atraumatic bulldog clamp was applied. Proximal radial artery, brachial artery, ulnar artery dissected free and controlled with vascular clamps. Longitudinal arteriotomy was made sharply, elongated with Chen scissors. 2.5 cm anastomosis created between the side of proximal radial artery and the perforating branch antecubital vein with continuous suture of 6-0 Prolene used for the anastomosis. Good hemostasis was noted as the vascular clamps were released, and hemostasis was obtained with 6-0 Prolene. The patient was given 25 mg of protamine intravenously by Anesthesia. Good hemostasis assured as there was a good Doppler signal in the outflow tracts cephalic vein. Subcutaneous tissue was approximated with 3-0 Monocryl, skin with subdermal 4-0 Monocryl and [place] glue applied. Job ID: [id number]
[2019-08-14] MEDS: traMADol HCl 50 MG TAB PO PRN (17:42)
[2019-08-14] MEDS: EPOETIN ALFA-EPBX (ESRD) 4,000 UNIT/ML VIAL SC SCH (17:44)
[2019-08-14] MEDS: Acetaminophen 500 MG TAB PO PRN (19:01)
[2019-08-14] MEDS ORDERED: Fentanyl 100 MCG/2 ML VIAL SLOW IVP PRN (19:28)
[2019-08-14] MEDS ORDERED: Cyclobenzaprine 10 MG TAB PO SCH (19:30)
[2019-08-15] MEDS: Calcium Carbonate 500 MG ChewTAB PO PRN (00:15)
[2019-08-15] MEDS: Acetaminophen 500 MG TAB PO PRN ×2 (03:27→16:49)
[2019-08-15 06:41] LABS: Mean Corpuscular HGB CONC 33.6 g/dL (32.0-36.0); Mean Corpuscular Hemoglobin 30.1 pg (27.0-31.0); Mean Corpuscular Volume 89.6 fL (78.0-98.0); Platelet Count 217 thou/uL (130-400); RBC Distribution Width 16.7 % (11.5-14.5); Red Blood Cell (RBC) Count 2.65 mill/uL (4.70-6.10); White Blood Cell (WBC) Count 9.3 thou/uL (4.8-10.8)
--- NOTE | 2019-08-15 06:57 | PDOC.FM ---
- Subjective Subjective: Pt is doing well after surgery. He no questions today. His was resting in the room with him. He has pain at site of fistula on neck. - Objective Vital Signs & Weight: Vital Signs (12 hours) Temp Pulse Resp BP Pulse Ox 08/15/19 04:00 98.6 F 71 16 165/81 H 96 08/15/19 00:00 99.2 F 76 16 146/85 H 99 08/14/19 20:15 98.3 F 68 18 153/95 H 98 08/14/19 20:00 98.2 F 70 16 154/87 H 98 08/14/19 19:48 98.5 F 72 20 157/94 H 99 Weight Weight 72.439 kg Most Recent Monitor Data Heart Rate from ECG 80 NIBP 137/82 NIBP BP-Mean 100 Respiration from ECG 21 SpO2 98 I&O: 08/13/19 08/14/19 08/15/19 06:59 06:59 06:59 Intake Total 2560 1320 800 Balance 2560 1320 800 Result Diagrams: 08/15/19 06:12 08/14/19 05:35 Phys Exam - Physical Examination Constitutional: NAD Dialysis catheter placed on chest; R arm, neck sites of fistula placement Respiratory: no wheezing, no rales, no rhonchi, clear to auscultation bilateral Cardiovascular: RRR, no significant murmur Gastrointestinal: soft, non-tender, no distention, positive bowel sounds Musculoskeletal: no edema, pulses present Dx/Plan (1) Acute renal failure Status: Acute (2) Fluid overload Code(s): E87.70 - FLUID OVERLOAD, UNSPECIFIED Status: Acute (3) Normocytic anemia Code(s): D64.9 - ANEMIA, UNSPECIFIED Status: Chronic (4) Hypertension Code(s): I10 - ESSENTIAL (PRIMARY) HYPERTENSION Status: Acute (5) Restrictive cardiomyopathy Code(s): I42.5 - OTHER RESTRICTIVE CARDIOMYOPATHY Status: Acute (6) Diastolic dysfunction Code(s): I51.89 - OTHER ILL-DEFINED HEART DISEASES Status: Acute - Plan Plan: Patient is a 38M with PMHx of cocaine abuse and 10pack year smoking hx that is admitted for acute renal failure and fluid overload # Acute renal failure Positive cocaine, hx of cocaine, undiagnosed HTN could be cause of renal failure. - Differential: untreated HTN, familial - Continue dialysis via fem line per Dr. Hatfield's recs. - A1C 4.7, CK 838, unlikely sources - feNa elevated, intra-renal process - SONALI and ANCA pending per Dr. Hatfield's recs for other causes of proteinuria - U/S revealed parynchemal involvement - less likely infectious, Hep Panel negative, HIV negative, Procal negative - Per Dr. Hatfield, will follow up with Dialysis Unit in [place]. Will discuss with Dr. Hatfield if pt is fine for discharge and to resume outpt dialysis. - Dr. Richardson will perform AV fistula/cuffed dialysis catheter placed 08/14/19 . # Restrictive Diastolic Cardiomyopathy Possibly secondary to uremia Echo: EF 40-45% - Cards consulted; thought that this is diastolic dysfunction with some left ventricular systolic dysfunction, likely due to hypertensive heart disease; appreciate continued recs - Continued on lisinopril and coreg # Elevated ESR - possibly secondary to acute renal failure, will continue to follow # HTN - Nifedipine, carvedilol; lisinopril - Labetalol PRN # Hx of fever - Afebrile overnight, no signs of infection on exam - Procal negative - Denies travel to [place] or TB contacts # Normocytic Anemia s/p 1 uprbc on 08/08 with dialysis. Hgb 8.5 on 08/09. - Iron studies revealed anemia of chronic disease, retic 2.3, FOBT negative; likely 2/2 ARF - EPO during dialysis, iron sulfate PO # Fluid Overload - Likely 2/2 ARF, BNP 2851> 1502 # Hypophosphatemia # Hyperparathyroid # Hypocalcemia - Calcium corrects to low normal. Parathyroid, phosphate are likely elevated due to renal failure Fluids: TKO Code: full PPx: scd Dispo: > 2 midnight, pending outpt dialysis bed placement, surgery consult on Monday for AV fistula/cuffed dialysis catheter; then pending discharge.
[2019-08-15 07:03] LABS: Anion Gap 13 mmol/L (10-20); BUN (Urea Nitrogen) 45 mg/dL (8.9-20.6); Calc. Creatinine Clearance 12 mL/min (70-130); Calcium 8.5 mg/dL (7.8-10.44); Carbon Dioxide 28 mmol/L (22-29); Chloride 98 mmol/L (98-107); Estimated GFR-MDRD 7; Glucose 136 mg/dL (70-105); Potassium 4.6 mmol/L (3.5-5.1); Sodium 134 mmol/L (136-145)
[2019-08-15 07:46] LABS: Band 1 % (5-11); Eosinophils 8 % (0-10); Lymphocytes 18 % (21-51); MDiff Complete? YES; Monocytes 6 % (0-10); Neutrophil 67 % (42-75); Platelet Morphology Comment Appears Adequate; Polychromasia SLIGHT = 2-3 cells (100X) (0-2/hpf)
[2019-08-15] MEDS ORDERED: Heparin 10,000 UNITS/ 10 ML VIAL ONE (09:00)
[2019-08-15] MEDS: Calcium Carbonate 500 MG ChewTAB PO SCH ×3 (09:10→16:48)
--- NOTE | 2019-08-15 09:41 | PRG ---
DATE OF SERVICE: 08/15/2019 SUBJECTIVE: Mr. Macias is a 38-year-old male, who was admitted for uremic signs and symptoms. Hemodialysis has been initiated. The patient has undergone placement of a cuffed dialysis catheter and a right AV fistula. He is currently undergoing dialysis. He is doing better. No new complaints. OBJECTIVE: VITAL SIGNS: Blood pressure 165/81, heart rate 71, respiratory rate 16, temperature 98.6, and pulse ox 96%. GENERAL: Noted to be awake, alert, comfortable, not in distress. SKIN: Adequate turgor. HEENT: He has pinkish conjunctivae. Anicteric sclerae. NECK: No neck mass. No carotid bruits. No JVD. CHEST: No deformities. LUNGS: Clear breath sounds. HEART: Normal sinus rhythm. No murmur, no gallops, and no rubs. ABDOMEN: Globular, soft, and nontender. No masses. EXTREMITIES: No edema. No deformities. MEDICATIONS: Medications of 08/15/2019 were reviewed. LABORATORY DATA: On 08/15/2019: White count 9.3 and hemoglobin 8.0. Sodium 134, potassium 4.6, chloride 98, carbon dioxide 28, BUN 45, creatinine 8.38, glucose 136, and calcium 8.5. ASSESSMENT AND PLAN: 1. Chronic renal failure/end-stage renal disease, stable. Continue current 3 times a week hemodialysis, tolerating said treatment. 2. Hypertension. Fairly controlled. Continue current blood pressure medications. 3. Anemia. Continuing weekly Epogen. The patient can be discharged any time. He has an outpatient dialysis placement in [facility]. Job ID: [id number]
[2019-08-15] MEDS: Calcitriol 0.25 MCG CAP PO SCH (11:36)
[2019-08-15] MEDS: Carvedilol 6.25 MG TAB PO SCH ×2 (11:36→16:48)
[2019-08-15] MEDS: NIFEdipine XL 30 MG TAB PO SCH (11:37)
[2019-08-15] MEDS: Ferrous Sulfate 325 MG TAB PO SCH ×2 (11:37→16:48)
[2019-08-15] MEDS: Lisinopril 10 MG TAB PO SCH (11:37)
--- NOTE | 2019-08-15 11:55 | PDOC.EVN ---
Event Note - Event Note Event Note: To Whom It May Concern Mr. Steve Macias has been hospitalized since 08/07/19 and at this time remains hospitalized. His family has spent time at the hospital requiring them to miss work and school. If you have any questions I can be reached: [facility] [address] [place] [address] Thanks, Alvarado Kaur, DO
--- NOTE | 2019-08-15 12:11 | PRG ---
DATE OF SERVICE: 08/15/2019 Mr. Macias has just completed hemodialysis without any problems. Unfortunately, he is and we are having Case Management work with plans for further dialysis, which may have to take place in [place]. Job ID: [id number]
[2019-08-15] MEDS ORDERED: NIFEdipine XL 30 MG TAB PO SCH (12:30)
[2019-08-15] MEDS ORDERED: NIFEdipine XL 60 MG TAB PO SCH (12:30)
[2019-08-16] MEDS: Acetaminophen 500 MG TAB PO PRN (00:17)
[2019-08-16] MEDS: Calcium Carbonate 500 MG ChewTAB PO PRN (00:21)
[2019-08-16] MEDS: traMADol HCl 50 MG TAB PO PRN ×2 (01:46→20:43)
[2019-08-16 05:48] LABS: Band 1 % (5-11); Eosinophils 6 % (0-10); Hemoglobin 8.9 g/dL (14.0-18.0); Lymphocytes 20 % (21-51); MDiff Complete? YES; Mean Corpuscular HGB CONC 33.1 g/dL (32.0-36.0); Mean Corpuscular Hemoglobin 29.8 pg (27.0-31.0); Mean Platelet Volume 8.1 fL (7.4-10.4); Monocytes 7 % (0-10); Neutrophil 66 % (42-75); Platelet Count 246 thou/uL (130-400); Platelet Morphology Comment Appears Adequate; RBC Distribution Width 16.6 % (11.5-14.5); Red Blood Cell (RBC) Count 2.97 mill/uL (4.70-6.10); White Blood Cell (WBC) Count 9.9 thou/uL (4.8-10.8)
[2019-08-16 05:56] LABS: Anion Gap 15 mmol/L (10-20); BUN (Urea Nitrogen) 33 mg/dL (8.9-20.6); Calc. Creatinine Clearance 15 mL/min (70-130); Calcium 8.8 mg/dL (7.8-10.44); Carbon Dioxide 26 mmol/L (22-29); Chloride 100 mmol/L (98-107); Estimated GFR-MDRD 9; Glucose 104 mg/dL (70-105); Potassium 4.3 mmol/L (3.5-5.1); Sodium 137 mmol/L (136-145)
--- NOTE | 2019-08-16 06:36 | PDOC.FM ---
- Subjective Subjective: Pt is doing well. No complaints. His states he has a work visa and insurance. They will try to obtain paperwork so he can stay in the [place] for dialysis. - Objective Vital Signs & Weight: Vital Signs (12 hours) Temp Pulse Resp BP Pulse Ox 08/16/19 04:18 98.7 F 67 16 119/70 95 08/16/19 01:53 98.2 F 96 08/16/19 00:15 100.1 F H 72 16 108/66 93 L 08/15/19 20:00 95 08/15/19 19:29 99.7 F H 75 18 120/54 L 95 Weight Weight 72.439 kg Most Recent Monitor Data Heart Rate from ECG 80 NIBP 137/82 NIBP BP-Mean 100 Respiration from ECG 21 SpO2 98 I&O: 08/14/19 08/15/19 08/16/19 06:59 06:59 06:59 Intake Total 1320 800 Balance 1320 800 Result Diagrams: 08/16/19 05:22 08/16/19 05:22 Phys Exam - Physical Examination Constitutional: NAD HEENT: PERRLA, moist MMs Respiratory: no wheezing, no rales, clear to auscultation bilateral Cardiovascular: RRR, no significant murmur Gastrointestinal: soft, non-tender, no distention, positive bowel sounds Musculoskeletal: no edema, pulses present Dx/Plan (1) Acute renal failure Status: Acute (2) Fluid overload Code(s): E87.70 - FLUID OVERLOAD, UNSPECIFIED Status: Acute (3) Normocytic anemia Code(s): D64.9 - ANEMIA, UNSPECIFIED Status: Chronic (4) Hypertension Code(s): I10 - ESSENTIAL (PRIMARY) HYPERTENSION Status: Acute (5) Restrictive cardiomyopathy Code(s): I42.5 - OTHER RESTRICTIVE CARDIOMYOPATHY Status: Acute (6) Diastolic dysfunction Code(s): I51.89 - OTHER ILL-DEFINED HEART DISEASES Status: Acute - Plan Plan: Patient is a 38M with PMHx of cocaine abuse and 10pack year smoking hx that is admitted for acute renal failure and fluid overload # Acute renal failure Positive cocaine, hx of cocaine, undiagnosed HTN could be cause of renal failure. - Differential: untreated HTN, familial - Continue dialysis via fem line per Dr. Hatfield's recs. - A1C 4.7, CK 838, unlikely sources - feNa elevated, intra-renal process - SONALI and ANCA pending per Dr. Hatfield's recs for other causes of proteinuria - U/S revealed parynchemal involvement - less likely infectious, Hep Panel negative, HIV negative, Procal negative - Per Dr. Hatfield, pt if fine for discharge to dialysis. - Dr. Richardson will perform AV fistula/cuffed dialysis catheter placed 08/14/19 . - Pending work visa, insurance to assist in placement for dialysis. # Restrictive Diastolic Cardiomyopathy Possibly secondary to uremia Echo: EF 40-45% - Cards consulted; thought that this is diastolic dysfunction with some left ventricular systolic dysfunction, likely due to hypertensive heart disease; appreciate continued recs - Continued on lisinopril and coreg # Elevated ESR - possibly secondary to acute renal failure, will continue to follow # HTN - Nifedipine, carvedilol; lisinopril - Labetalol PRN # Hx of fever - Afebrile overnight, no signs of infection on exam - Procal negative - Denies travel to [place] or TB contacts # Normocytic Anemia s/p 1 uprbc on 08/08 with dialysis. Hgb 8.5 on 08/09. - Iron studies revealed anemia of chronic disease, retic 2.3, FOBT negative; likely 2/2 ARF - EPO during dialysis, iron sulfate PO # Fluid Overload - Likely 2/2 ARF, BNP 2851> 1502 # Hypophosphatemia # Hyperparathyroid # Hypocalcemia - Calcium corrects to low normal. Parathyroid, phosphate are likely elevated due to renal failure Fluids: TKO Code: full PPx: scd Dispo: > 2 midnight, pending discharge to dialysis.
[2019-08-16] MEDS: Lisinopril 10 MG TAB PO SCH (08:07)
[2019-08-16] MEDS: Calcitriol 0.25 MCG CAP PO SCH (08:07)
[2019-08-16] MEDS: Carvedilol 6.25 MG TAB PO SCH ×2 (08:07→16:56)
[2019-08-16] MEDS: Ferrous Sulfate 325 MG TAB PO SCH ×2 (08:07→16:56)
[2019-08-16] MEDS: Calcium Carbonate 500 MG ChewTAB PO SCH ×3 (08:08→16:55)
[2019-08-16] MEDS ORDERED: NIFEdipine XL 60 MG TAB PO SCH (09:00)
--- NOTE | 2019-08-16 12:18 | PRG ---
DATE OF SERVICE: 08/16/2019 Mr. Macias is continuing dialysis. We are continuing to work with case management for outpatient dialysis/placement. Job ID: [id number]
[2019-08-17 06:11] LABS: Band 6 % (5-11); Eosinophils 6 % (0-10); Hemoglobin 8.5 g/dL (14.0-18.0); Lymphocytes 35 % (21-51); MDiff Complete? YES; Mean Corpuscular HGB CONC 33.8 g/dL (32.0-36.0); Mean Corpuscular Hemoglobin 30.4 pg (27.0-31.0); Mean Corpuscular Volume 89.8 fL (78.0-98.0); Mean Platelet Volume 8.2 fL (7.4-10.4); Monocytes 7 % (0-10); Neutrophil 46 % (42-75); Platelet Count 233 thou/uL (130-400); Platelet Morphology Comment Appears Adequate; RBC Distribution Width 16.4 % (11.5-14.5); RBC Morphology Normal; White Blood Cell (WBC) Count 9.8 thou/uL (4.8-10.8)
--- NOTE | 2019-08-17 06:13 | PDOC.FM ---
- Subjective Subjective: Pt is doing well. He denies any pains. He was able to find his work visa but does not have insurance. - Objective Vital Signs & Weight: Vital Signs (12 hours) Temp Pulse Resp BP Pulse Ox 08/16/19 20:46 99.0 F 71 16 155/80 H 99 08/16/19 20:00 99 Weight Weight 72.439 kg Most Recent Monitor Data Heart Rate from ECG 80 NIBP 137/82 NIBP BP-Mean 100 Respiration from ECG 21 SpO2 98 I&O: 08/15/19 08/16/19 08/17/19 06:59 06:59 06:59 Intake Total 800 Balance 800 Result Diagrams: 08/17/19 05:21 08/17/19 05:21 Phys Exam - Physical Examination Constitutional: NAD Port placed, fistula placed R arm HEENT: PERRLA, moist MMs Neck: no JVD, full ROM Respiratory: no wheezing, no rales, no rhonchi, clear to auscultation bilateral Cardiovascular: RRR, no significant murmur Gastrointestinal: soft, non-tender, no distention, positive bowel sounds Musculoskeletal: pulses present Dx/Plan (1) Acute renal failure Status: Acute (2) Fluid overload Code(s): E87.70 - FLUID OVERLOAD, UNSPECIFIED Status: Acute (3) Normocytic anemia Code(s): D64.9 - ANEMIA, UNSPECIFIED Status: Chronic (4) Hypertension Code(s): I10 - ESSENTIAL (PRIMARY) HYPERTENSION Status: Acute (5) Restrictive cardiomyopathy Code(s): I42.5 - OTHER RESTRICTIVE CARDIOMYOPATHY Status: Acute (6) Diastolic dysfunction Code(s): I51.89 - OTHER ILL-DEFINED HEART DISEASES Status: Acute - Plan Plan: Patient is a 38M with PMHx of cocaine abuse and 10pack year smoking hx that is admitted for acute renal failure and fluid overload # Acute renal failure Positive cocaine, hx of cocaine, undiagnosed HTN could be cause of renal failure. - Differential: untreated HTN, familial - Continue dialysis via fem line per Dr. Hatfield's recs. - A1C 4.7, CK 838, unlikely sources - feNa elevated, intra-renal process - SONALI and ANCA pending per Dr. Hatfield's recs for other causes of proteinuria - U/S revealed parynchemal involvement - less likely infectious, Hep Panel negative, HIV negative, Procal negative - Per Dr. Hatfield, pt if fine for discharge to dialysis. - Dr. Richardson performed AV fistula/cuffed dialysis catheter placed 08/14/19 . - Pt has work visa but no insurance. Will need CM to assist in placement for dialysis; Depending on abilities of CM pt might have to go to [place] for dialysis. Hopefully with work visa he will be able to find assistance in [place]. Will discuss with CM today. # Restrictive Diastolic Cardiomyopathy Possibly secondary to uremia Echo: EF 40-45% - Cards consulted; thought that this is diastolic dysfunction with some left ventricular systolic dysfunction, likely due to hypertensive heart disease; appreciate continued recs - Continued on lisinopril and coreg # Elevated ESR - possibly secondary to acute renal failure, will continue to follow # HTN - Nifedipine, carvedilol; lisinopril - Labetalol PRN - Continue monitoring, dialysis. Well controlled after dialysis. # Hx of fever - Afebrile overnight, no signs of infection on exam - Procal negative - Denies travel to [place] or TB contacts # Normocytic Anemia s/p 1 uprbc on 08/08 with dialysis. Hgb 8.5 on 08/09. - Iron studies revealed anemia of chronic disease, retic 2.3, FOBT negative; likely 2/2 ARF - EPO during dialysis, iron sulfate PO # Fluid Overload - Likely 2/2 ARF, BNP 2851> 1502 # Hypophosphatemia # Hyperparathyroid # Hypocalcemia - Calcium corrects to low normal. Parathyroid, phosphate are likely elevated due to renal failure Fluids: TKO Code: full PPx: scd Dispo: > 2 midnight, pending discharge to dialysis. Addendum - Attending - Attending Attestation Date/Time: 08/17/19 7960 I personally evaluated the patient and discussed the management with Dr. Kaur. I agree with the History, Examination, Assessment and Plan documented above with any addition or exceptions noted below. Patient here with renal failure requiring HD due to polysubstance abuse. He is an undocumented immigrant and has no funding source or ability to obtain HD. He refuses to return to [place] for treatment. Discuss with CM funding options but he is otherwise stable for discharge.
[2019-08-17 06:21] LABS: Anion Gap 16 mmol/L (10-20); BUN (Urea Nitrogen) 41 mg/dL (8.9-20.6); Calc. Creatinine Clearance 13 mL/min (70-130); Carbon Dioxide 24 mmol/L (22-29); Chloride 99 mmol/L (98-107); Estimated GFR-MDRD 7; Glucose 89 mg/dL (70-105); Potassium 4.6 mmol/L (3.5-5.1); Sodium 134 mmol/L (136-145)
--- NOTE | 2019-08-17 06:53 | PRG ---
DATE OF SERVICE: 08/17/2019 SUBJECTIVE: Mr. Macias is a 38-year-old male, who was admitted for uremia. Initiation with hemodialysis was done, which clinically improved the patient. No new complaints today. He is doing well with the dialysis. We are continuing 3 times a week hemodialysis. OBJECTIVE: VITAL SIGNS: Blood pressure is 155/80, heart rate 71, respiratory rate 16, temperature 99, and pulse ox 99%. GENERAL: Noted to be awake, alert, comfortable, not in distress. SKIN: Adequate turgor. HEENT: He has a pinkish conjunctivae. Anicteric sclerae. NECK: No neck mass. No carotid bruits. No JVD. CHEST: No deformities. LUNGS: Clear breath sounds. HEART: Normal sinus rhythm. No murmur. No gallops. No rubs. ABDOMEN: Globular, soft, nontender, no masses. EXTREMITIES: No edema. MEDICATIONS: Medications of August 17, 2019 was reviewed. LABORATORY DATA: Laboratories of August 17, 2019; white count 9.8, hemoglobin 8.5, sodium 134, potassium 4.6, chloride 99, carbon dioxide 24, BUN 41, creatinine 8.34, calcium 9. ASSESSMENT AND PLAN: 1. End-stage renal disease/chronic renal failure, continuing 3 times a week hemodialysis. I have scheduled him this morning for another dialysis session-we will do him for 4 hours. 2. Renal osteodystrophy, currently on phosphate binders and on calcitriol. 3. Anemia. The patient is currently on a weekly Epogen regimen. Awaiting outpatient dialysis approval. Job ID: [id number]
[2019-08-17] MEDS: Carvedilol 6.25 MG TAB PO SCH (07:54)
[2019-08-17] MEDS: Calcitriol 0.25 MCG CAP PO SCH (07:54)
[2019-08-17] MEDS: Lisinopril 10 MG TAB PO SCH (07:54)
[2019-08-17] MEDS: Ferrous Sulfate 325 MG TAB PO SCH (07:54)
[2019-08-17] MEDS: Calcium Carbonate 500 MG ChewTAB PO SCH ×2 (07:54→13:14)
[2019-08-17] MEDS: traMADol HCl 50 MG TAB PO PRN ×2 (07:56→15:47)
[2019-08-17 08:14] VITALS: BP 166/90; TEMP 98.6
[2019-08-17] MEDS ORDERED: Heparin 10,000 UNITS/ 10 ML VIAL ONE (14:47)
--- NOTE | 2019-08-20 01:45 | DIS ---
DATE OF ADMISSION: 08/07/2019 DATE OF DISCHARGE: 08/17/2019 RESIDENT: Alvarado Kaur DO ADMITTING ATTENDING: Truman Sinha MD DISCHARGE ATTENDING: Christiano Malone MD CONSULTS: 1. Nephrology, Anthony Louie MD. 2. Cardiology, Modesto Gomez MD. 3. General Surgery, Erick Richardson MD. 4. Pulmonology, Marc Childers MD. PROCEDURES PERFORMED: 1. Chest x-ray on 08/07/2019 revealed right asymmetric perihilar opacity. Could be related to perihilar pneumonia, asymmetric edema, or alternatively a benign relocated mass. There is no evidence of fluid overload. 2. Renal ultrasound on 08/07/2019 revealed increasing echogenicity to both kidneys suggesting underlying medical renal parenchymal disease. The right kidney was 11.6 cm in size. The left kidney measured 11.5 cm. There were no signs of mass or obstruction. 3. Echocardiogram on 08/08/2019, revealed ejection fraction estimated to be 40% to 45%. Evidence of restrictive filling pattern suggesting restrictive diastolic function. The left atrium was moderately to severely dilated. Mild, moderate mitral regurg. [id number] tricuspid regurg. Moderately elevated pulmonary artery pressure. 4. Chest x-ray on 08/09/2019, revealed small bilateral effusion without evidence of pneumonia. 5. 08/14/2019, Dr. Richardson placed a right internal jugular cuffed tunneled hemodialysis catheter. Right arm primary intravenous fistula inflow, proximal radial artery outflow cephalic vein only. There is no communication of the basilic vein. Calibrated 4 mm coronary dilator with excellent doppler signal. 6. Chest x-ray on 08/14/2019, revealed right-sided dialysis catheter placement without evidence of pneumothorax. PRIMARY DIAGNOSES: 1. End-stage renal disease. 2. Acute renal failure. 3. Restrictive diastolic cardiomyopathy. 4. Hypertension. 5. Normocytic anemia. 6. Fluid overload. 7. Hypocalcemia. 8. Hyperphosphatemia. 9. Secondary hyperparathyroidism. DISCHARGE MEDICATIONS: 1. Calcitriol 0.25 mcg p.o. daily. 2. Carvedilol 12.5 mg p.o. b.i.d. 3. Retacrit 75 mcg subcu q.7 days. 4. Ferrous sulfate 325 mg p.o. b.i.d. 5. Lisinopril 10 mg p.o. daily. HISTORY OF PRESENT ILLNESS/HOSPITAL COURSE: Steve Macias is a 38-year-old patient without significant past medical history, although he did not have any followup with primary care providers, who presented with acute renal failure at that time of eval and diagnosis. Dr. Hatfield was consulted from the emergency department and patient underwent dialysis. A small catheter was placed to sustain his dialysis. Dr. Hatfield wanted to dialyze him for multiple days in a row to help decrease his toxin burden. Dr. Hatfield believes that his ESRD was secondary to undiagnosed hypertension, potentially cocaine abuse as his UDS was positive. His A1c was 4.7, creatine kinase was 838, creatinine 14.5, BUN 84, calcium 6.0, LFTs within normal limits, tropes indeterminate range, BNP 2851, hemoglobin 7.2. On admission, all of his electrolytes were dressed and labs were addressed during the stay. Creatinine did improve throughout his stay. For end-stage renal disease, patient required femoral artery line for dialysis and then Dr. Richardson was consulted to place the AV fistula and also a central line placement to be used while the AV fistula matures. The patient tolerated the procedures well and the central line worked appropriately for dialysis. The patient was hypertensive on admission, so we started lisinopril secondary to his restrictive diastolic cardiomyopathy and also started carvedilol for the same reason. Blood pressures were fairly well controlled throughout his stay, but were at tightest control after patient received dialysis, alleviating the patient off some of this fluid burden. Due to secondary hyperparathyroidism, the patient was started on calcitriol. In terms of his anemia, the patient was started on Epoetin as well as ferrous sulfate to help with anemia burden. The patient was also transfused 1 unit of packed red blood cells on admission. Of note, the patient's hepatitis panel, HIV panel and SONALI screening labs were all negative, which correlated with more likely diagnosis of chronic hypertension leading to his renal disease. Due to the patient not having insurance and being on a work visa, the patient was accepted into the hospital's program for placement and dialysis. Dr. Hatfield was in the way in his effort to make sure that he had placement. At this time, he will be receiving dialysis in [place]. DISPOSITION: Stable. DISCHARGE INSTRUCTIONS: 1. Location: [facility]. 2. Diet: Renal protective. 3. Activity: Ad lluvia. 4. Followup: Follow up with Dialysis Clinic on Monday, , Monday. Follow up with Dr. Hatfield per Dr. Hatfield's recommendations. Follow up with primary care provider as needed. To follow up with [facility]. Job ID: [id number]
--- NOTE | 2019-08-20 05:41 | PQF ---
[employer] Crystal Reports Winform LillianGilesneponsit beach hospitaldiegoSteveGEOFF Lopes MD [id number] CLINICAL DOCUMENTATION CLARIFICATION FORM: POST DISCHARGE Addendum to original discharge summary date: ____ Late entry note date: __ DATE: 08/20/2019 ATTN:GEOFF REYES MD Please exercise your independent, professional judgment in responding to the clarification form. Clinical indicators are provided on the bottom of this form for your review Please check appropriate box(s): HEART FAILURE: ACUITY [ ] Acute [ ] Acute on Chronic [ ] Chronic [ ] Other diagnosis [ ] Unable to determine For continuity of documentation, please document condition throughout progress notes and discharge summary. Thank You. CLINICAL INDICATORS - SIGNS / SYMPTOMS / LABS - BNP:2851-DS, 08/17, Natasha Childers DO -ESRD was sec to undiagnosed hypertension-DS, 08/17, Natasha Childers DO -Restrictive diastolic cardiomyopathy-DS, 08/17, Natasha Childers DO -Fluid overload-DS, 08/17, Natasha Childers DO -Heart failure: elevated BNP, CASAREZ, will need Echo, will need to determine etiology-H&P, 08/07, Nataliya Daniel MD -EF is visually estimated at 40-45%- Echocardiogram 08/08 - thought that is diastolic dysfunction with some left venticular systolic dysfunction, likely due to hypertensive heart disease-[facility], 08/17 , Christiano Solo MD RISKS: -End stage renal disease-DS, 08/17, Natasha Childers DO -Hypertension-DS, 08/17, Natasha Childers DO TREATMENTS: -Wrapping Machine Helper consult-DS, 08/17, Natasha Childers DO -Dialysis-DS, 08/17, Natasha Childers DO -Carvedilol-DS, 08/17, Natasha Childers DO [employer] Win[employer] Viewer (This form is maintained as a part of the permanent medical record) 2014 [employer], [employer]. All Rights Reserved Laura Gross [not provided] [not provided] JACQUED
--- NOTE | 2019-08-25 09:47 | EKG ---
Test Reason : Blood Pressure : / mmHG Vent. Rate : 070 BPM Atrial Rate : 070 BPM P-R Int : 134 ms QRS Dur : 084 ms QT Int : 448 ms P-R-T Axes : 033 015 094 degrees QTc Int : 483 ms Normal sinus rhythm Voltage criteria for left ventricular hypertrophy Nonspecific T wave abnormality Prolonged QT Abnormal ECG When compared with ECG of 07-AUG-2019 13:06, QT has shortened Confirmed by Romie REID ([id number]) on 08/25/2019 9:47:40 AM Referred By: Confirmed By:Romie REID
== END 2019-08-17 15:57 | disposition home or self-care (01) | DRG 907 ==
LOC: ERS 12:10 → IMCU/EMU 17:24 → T4-A 08-08 15:44
PROVIDERS: ADMIT Student in an Organized Health Care Education/Training Program; ATTEND Student in an Organized Health Care Education/Training Program
PROC: 5A1D70Z Performance of Urinary Filtration, Intermittent, Less than 6 Hours Per Day (ICD-10-PCS; 2019-08-07)
PROC: 031B0ZF Bypass Right Radial Artery to Lower Arm Vein, Open Approach (ICD-10-PCS; principal; 2019-08-14)
PROC: 0JH60XZ Insertion of Tunneled Vascular Access Device into Chest Subcutaneous Tissue and Fascia, Open Approach (ICD-10-PCS; 2019-08-14)
PROC: 02HV33Z Insertion of Infusion Device into Superior Vena Cava, Percutaneous Approach (ICD-10-PCS; 2019-08-14)
PROC: B548ZZA Ultrasonography of Superior Vena Cava, Guidance (ICD-10-PCS; 2019-08-14)
PROC: B5181ZA Fluoroscopy of Superior Vena Cava using Low Osmolar Contrast, Guidance (ICD-10-PCS; 2019-08-14)
DX: T40.5X1A Poisoning by cocaine, accidental (unintentional), initial encounter (principal); N18.6 End stage renal disease; N17.9 Acute kidney failure, unspecified; I13.2 Hypertensive heart and chronic kidney disease with heart failure and with stage 5 chronic kidney disease, or end stage renal disease; I42.5 Other restrictive cardiomyopathy; I50.42 Chronic combined systolic (congestive) and diastolic (congestive) heart failure; N25.81 Secondary hyperparathyroidism of renal origin; E87.70 Fluid overload, unspecified; D63.1 Anemia in chronic kidney disease; F17.210 Nicotine dependence, cigarettes, uncomplicated; E83.39 Other disorders of phosphorus metabolism; E83.51 Hypocalcemia; Z99.2 Dependence on renal dialysis; Y92.9 Unspecified place or not applicable
CPT/HCPCS: 36415; 36416; 36430; 36556; 71045; 71046; 76770; 80048; 80053; 80306; 80307; 81001; 82274; 82550; 82553; 82570; 82728; 83036; 83520; 83540; 83550; 83735; 83880; 83970; 84100; 84145; 84300; 84484; 85007; 85025; 85027; 85046; 85060; 85652; 86038; 86225; 86256; 86704; 86706; 86803; 86850; 86900; 86901; 87040; 87340; 87389; 90935; 93005; 93010; 93306; 93970; C1752; C1769; G0257; G0365; J0670; J0690; J1644; J2001; J2250; J2400; J2704; J2720; J3010; J3490; P9016; Q5105

== ENCOUNTER 2019-08-21 23:57 | Emergency (ER) | payer SELFPAY ==
[2019-08-22 00:34] LABS: Bacteria/HPF None Seen HPF (None Seen); Bilirubin Negative (Negative); Blood, Urine 1+ (Negative); Clarity Clear (Clear); Glucose, Urine (Dipstick) 70 mg/dL (Negative); Leukocyte Negative Leu/uL (Negative); Nitrite Negative (Negative); Protein, Urine (Dipstick) 300 mg/dL (Neg-Trace); Squamous Epithelial 0-3 HPF (0-3); Urobilinogen Normal mg/dL (Less than 2); WBC/HPF 0-3 HPF (0-3)
[2019-08-22 00:37] LABS: #Basophils 0.1 thou/uL (0.0-0.2); #Eosinphils 0.6 thou/uL (0.0-0.7); #Lymphocytes 2.7 thou/uL (1.20-3.40); #Monocytes 0.6 thou/uL (0.11-0.59); #Neutrophils 6.8 thou/uL (1.40-6.50); %Basophils 0.9 % (0.0-1.0); %Eosinophils 5.9 % (0.0-10.0); %Lymphocytes 24.9 % (21.0-51.0); %Monocytes 5.7 % (0.0-10.0); %Neutrophils 62.6 % (42.0-75.0); Hemoglobin 8.7 g/dL (14.0-18.0); Mean Corpuscular HGB CONC 33.2 g/dL (32.0-36.0); Mean Corpuscular Hemoglobin 29.8 pg (27.0-31.0); Mean Corpuscular Volume 89.8 fL (78.0-98.0); Mean Platelet Volume 8.2 fL (7.4-10.4); Platelet Count 275 thou/uL (130-400); RBC Distribution Width 16.7 % (11.5-14.5); White Blood Cell (WBC) Count 10.9 thou/uL (4.8-10.8)
[2019-08-22 00:57] LABS: ALT (SGPT) 34 U/L (8-55); AST (SGOT) 60 U/L (5-34); Alkaline Phosphatase 111 U/L (40-110); Anion Gap 22 mmol/L (10-20); BUN (Urea Nitrogen) 64 mg/dL (8.9-20.6); Bilirubin, Total 0.7 mg/dL (0.2-1.2); Calc. Creatinine Clearance 0 mL/min (70-130); Calcium 8.9 mg/dL (7.8-10.44); Carbon Dioxide 19 mmol/L (22-29); Chloride 105 mmol/L (98-107); Estimated GFR-MDRD 5; Globulin 3.8 g/dL (2.4-3.5); Glucose 90 mg/dL (70-105); Potassium 5.2 mmol/L (3.5-5.1); Protein, Total 7.8 g/dL (6.0-8.3); Sodium 141 mmol/L (136-145)
--- NOTE | 2019-08-22 01:37 | PDOC.FPRHP ---
- History of Present Illness Chief Complaint: Nausea, vomiting - Allergies/Adverse Reactions Allergies Allergy/AdvReac Type Severity Reaction Status Date / Time No Known Allergies Allergy Verified 08/07/19 17:28 - Home Medications Medication Instructions Recorded Confirmed Type Calcitriol [Rocaltrol] 0.25 mcg PO DAILY #30 cap 08/17/19 Rx Carvedilol 12.5 mg PO BID #30 tablet 08/17/19 Rx Epoetin Vic-Epbx [Retacrit] 7,500 unit SC Q7D vial 08/17/19 Rx Ferrous Sulfate [Feosol] 325 mg PO BID-WM #60 tab 08/17/19 Rx Lisinopril [Zestril] 10 mg PO DAILY #30 tab 08/17/19 Rx - History PMHx: PSHx: FHx: Social: - Vital signs BP: [] HR: [] RR: [] Tmax: [] Pox: []% on [] Wt: [] FMR H&P: Results - Labs Result Diagrams: 08/22/19 00:25 08/22/19 00:25 Lab results: WBC 10.9 thou/uL (4.8-10.8) H 08/22/19 00:25 Hgb 8.7 g/dL (14.0-18.0) L 08/22/19 00:25 Hct 26.1 % (42.0-52.0) L 08/22/19 00:25 MCV 89.8 fL (78.0-98.0) 08/22/19 00:25 Plt Count 275 thou/uL (130-400) 08/22/19 00:25 Neutrophils % 62.6 % (42.0-75.0) 08/22/19 00:25 Sodium 141 mmol/L (136-145) 08/22/19 00:25 Potassium 5.2 mmol/L (3.5-5.1) H 08/22/19 00:25 Chloride 105 mmol/L (98-107) 08/22/19 00:25 Carbon Dioxide 19 mmol/L (22-29) L 08/22/19 00:25 BUN 64 mg/dL (8.9-20.6) H 08/22/19 00:25 Creatinine 11.53 mg/dL (0.7-1.3) H 08/22/19 00:25 Glucose 90 mg/dL (70-105) 08/22/19 00:25 Calcium 8.9 mg/dL (7.8-10.44) 08/22/19 00:25 Total Bilirubin 0.7 mg/dL (0.2-1.2) 08/22/19 00:25 AST 60 U/L (5-34) H 08/22/19 00:25 ALT 34 U/L (8-55) 08/22/19:25 Alkaline Phosphatase 111 U/L (40-110) H 08/22/19 00:25 B-Natriuretic Peptide 2918.2 pg/mL (0-100) H 08/22/19 00:25 Serum Total Protein 7.8 g/dL (6.0-8.3) 08/22/19 00:25 Albumin 4.0 g/dL (3.5-5.0) 08/22/19 00:25 Urine Ketones Negative mg/dL (Negative) 08/22/19 00:16 Urine Blood 1+ (Negative) A 08/22/19 00:16 Urine Nitrite Negative (Negative) 08/22/19 00:16 Ur Leukocyte Esterase Negative Meghan/uL (Negative) 08/22/19 00:16 Urine RBC 11-20 HPF (0-3) A 08/22/19 00:16 Urine WBC 0-3 HPF (0-3) 08/22/19 00:16 Ur Squamous Epith Cells 0-3 HPF (0-3) 08/22/19 00:16 Urine Bacteria None Seen HPF (None Seen) 08/22/19 00:16 FMR H&P: Upper Level - Plan Date/Time: 08/22/19136 I, [], have evaluated this patient and agree with findings/plan as outlined by civil engineering intern resident. Pertinent changes/additions are listed here.
--- NOTE | 2019-08-22 08:04 | RAD ---
PORTABLE CHEST 1 VIEW: Date: 08/22/19 Time: 0013 hours HISTORY: Dyspnea. Patient on dialysis. Patient missed dialysis yesterday. FINDINGS/IMPRESSION: Comparison made with exam of 08/14/19. The heart size is borderline. The aorta is tortuous. There is mild pulmonary vascular congestion. Rig ht-sided dialysis catheter remains in place. No pneumothoraces, lobar consolidation, or large effusio ns are noted. POS: CRISTHIAN
== END 2019-08-22 02:24 | disposition home or self-care (01) ==
LOC: ERS 23:57
DX: R11.2 Nausea with vomiting, unspecified (principal); I12.0 Hypertensive chronic kidney disease with stage 5 chronic kidney disease or end stage renal disease; N18.6 End stage renal disease; E11.22 Type 2 diabetes mellitus with diabetic chronic kidney disease; F17.210 Nicotine dependence, cigarettes, uncomplicated; Z79.899 Other long term (current) drug therapy; Z99.2 Dependence on renal dialysis
CPT/HCPCS: 36415; 71045; 80053; 81003; 81015; 83880; 85025; 93005

== ENCOUNTER 2019-10-22 18:57 | Inpatient (IN) | payer SELFPAY ==
--- NOTE | 2019-10-22 20:07 | PDOC.FPRHP ---
- History of Present Illness Chief Complaint: Fever, Chills History of Present Illness: Steve Macias is a 39 y/o male with a PMH significan for ESRD requiring x3 weekly hemodialysis who presents to the ED from an outside hospital because of fevers and chills. Per the patient, he has been feeling poorly since 10/21, and spiked a fever while receiving dialysis earlier in the day. He also admits to multiple episodes of vomiting, but denies any watery or itchy eyes, rhinorrhea, chest pain, SOB, ABD pain, dysuria, diarrhea or bloody/ tarry stools. He is [place]-speaking primarily and his assisted with much of the HPI and ROS. He has a tunneled hemodialysis catheter in place, which he was supposed to have removed earlier in the month but was unable to do so due to scheduling difficulties. He currently uses a right AV fistula for his hemodialysis needs. ED Course: While in at the outside hospital, he received Vancomycin and Ceftriaxone following documented fevers, tachycardia and tachypnea. Additional records were unable to be obtained. - Allergies/Adverse Reactions Allergies Allergy/AdvReac Type Severity Reaction Status Date / Time No Known Allergies Allergy Verified 08/07/19 17:28 - Home Medications Medication Instructions Recorded Confirmed Type Calcitriol [Rocaltrol] 0.25 mcg PO DAILY #30 cap 08/17/19 10/22/19 Rx Carvedilol 12.5 mg PO BID #30 tablet 08/17/19 10/22/19 Rx Lisinopril [Zestril] 10 mg PO DAILY #30 tab 08/17/19 10/22/19 Rx - History PMHx: ESRD, DM2 PSHx: AV Fistula Placement, Tunneled Dialysis Placement FHx: DM2, HTN, CAD Social: Smokes 5-6 cigarettes per day. Denies EtOH and street drug abuse. Code: Full - Review of Systems ROS unobtainable: other (The patient was able to give some of his HPI and ROS, but much of the information had to be obtained from the patient's .) General: reports: fever/chills. denies: fatigue Eyes: denies: vision changes ENT: denies: nasal congestion, rhinorrhea Respiratory: denies: cough, congestion, shortness of breath Cardiovascular: denies: chest pain, palpitation, edema Gastrointestinal: reports: vomiting. denies: nausea, diarrhea, constipation, abdominal pain, GI bleeding Genitourinary: denies: dysuria, discharge Skin: denies: rashes, lesions Musculoskeletal: denies: pain, swelling Neurological: denies: syncope, weakness - Vital signs BP: [92] HR: [130/64] RR: [16] Tmax: [98.8] Pox: [95]% on [Room] Wt: [79 kg] - Physical Exam Constitutional: awake, alert and oriented, other (Visibly shaking in bed) HEENT: normocephalic and atraumatic, PERRLA, EOMI, no scleral icterus, grossly normal vision, grossly normal hearing, normal nasal mucosa, MMM, oropharynx clear Neck: supple, FROM, trachea midline, no LAD Chest: no-tender to palpation, no lesions Heart: RRR, normal S1/S2, pulses present, no edema, other (Murmur reported by ED staff, unable to differentiate due to patient shaking) Lungs: CTAB, no respiratory distress, good air movement, no rales/rhonchi, no wheezing, no retractions Abdomen: soft, non-tender, bowel sounds present, no masses/distention Musculoskeletal: normal structure, ROM grossly normal Skin: no rash/lesions, capillary refill <2 seconds, no jaundice Heme/Lymphatic: no unusual bruising or bleeding, no purpura, no petechia Psychiatric: intact recent and remote memory FMR H&P: Results - Labs Result Diagrams: 10/23/19 05:48 10/23/19 05:48 FMR H&P: A/P - Plan Patient is a 39 y/o male with a PMH significant for ESRD requiring dialysis currently admitted to the Medical Floor for fevers and chills. 1. Sepsis, likely 2/2 Bacteremia -Likely 2/2 to bloodstream infection - considered hemodialysis catheter site infection -s/p Vancomycin and Ceftriaxone at outside facility - will switch to Vancomycin and Zosyn -WBC: 11 -Lactic Acid: 2.2 - will continue to trend -ProCal: Pending -Blood Culture: Pending -Urine Culture: Pending -Flu Swab: Pending -Gen Surg: Pending - Consider removal of tunneled dialysis catheter and subsequent blood culture of distal tip 2. ESRD -Dialysis dependent -Will consult Nephro in the AM to resume dialysis -Avoid nephrotoxic drugs 3. DM2 -Will likely resume dialysis regimen following Nephro consult -Moderate SSI Code: Full Diet: CC/Renal w/ High Protein (Fluid Restriction) Activity: Ambulate w/ Assist Dispo: Patient is currently admitted to the Medical Floor for Sepsis likely 2/2 to bacteremia. Will continue antibiotic regimen as per above. Will consult Nephrology and Gen Surg - recs appreciated. Expected LOS > 48H. FMR H&P: Upper Level - Pertinent history 39 y/o M PMHx ESRD on HD T//Mon presents to the ED as a transfer because of fever during dialysis. He reports fever to 102 during dialysis and his thinks he had a fever last night while in bed as well. He reports today that he started vomiting, but otherwise denies any symptoms. He reports compliance with his dialysis and follows with Dr. Hatfield. - Pertinent findings BP: 130/64, Pulse: 92, Resp: 16, Temp: 98.8 (Oral), Pain: 0, O2 sat: 95 on ( Room Air) PE: Gen - alert, oriented, NAD CV - 3/6 systolic murmur Lungs - CTAB, no wheezes Abd - soft, NTTP Skin - R sided dialysis cath with no surrounding erythema or induration Labs: WBC 11.5, Na 139, K 4.8, Cl 94, CO2 28, BUN 29, Cr 8.42, Lactic acid 2.2, Flu negative CXR - no acute process - Plan Date/Time: 10/22/192006 IGiuliana MD, PGY-3, have evaluated this patient and agree with findings/ plan as outlined by internal revenue agent resident. Pertinent changes/additions are listed here. 1. Sepsis without a source Pt with new heart murmur developed a fever while at dialysis. BCX have been drawn at outside facility. CXR normal, flu negative, WBC 11.5, lactic acid 2.2. Pt with dialysis catheter in place. Suspect catheter infection vs bacteremia vs endocarditis vs UTI -Pt still makes urine so will check a UA -Procal -s/p vanc and rocephin, will start pt on vanc and zosyn -BCx pending from OSH, will add line cultures -Repeat lactic acid -Pt now with working AV fistula for dialysis, in the setting of suspected bacteremia will consult Dr. Irving with general surgery to discuss removing catheter 2. ESRD on HD -Will consult Dr. Hatfield in AM to continue HD while hospitalized -Pharmacy to dose antibiotics 3. DM2 -Accuchecks -Continue home meds 4. HTN -Continue home meds Dispo: Obs on medical LOS: Likely less than 48 hours Addendum - Attending - Attending Attestation Date/Time: 10/23/192052 I personally evaluated the patient and discussed the management with Dr. Rhodes and Lorraine. I agree with the History, Examination, Assessment and Plan documented above with any addition or exceptions noted below.
[2019-10-22] MEDS ORDERED: Acetaminophen 325 MG TAB PO PRN (22:25)
[2019-10-22] MEDS ORDERED: Ondansetron PF 4 MG/2 ML Vial IVP PRN (22:25)
[2019-10-22] MEDS ORDERED: Ondansetron ODT 4 MG TAB SL PRN (22:25)
[2019-10-22] MEDS ORDERED: Cefepime 2 GM in Sodium Chloride 0.9% 100 ML IVPB SCH (22:30)
[2019-10-22] MEDS ORDERED: Vancomycin HCl 1.25 GM in Sodium Chloride 0.9% 250 ML 250 ML IVPB SCH ×3 (22:30→23:45)
[2019-10-22] MEDS ORDERED: HumaLOG 300 UNITS/3 ML VIAL SC PRN (22:36)
[2019-10-22] MEDS ORDERED: Dextrose 50% Abboject 50 ML SYRINGE SLOW IVP PRN (22:36)
[2019-10-22] MEDS ORDERED: Dextrose 5% in Water 1,000 ML IV PRN (22:36)
[2019-10-22 23:20] VITALS: BMI 28.1
[2019-10-22] MEDS: Calcium Carbonate 500 MG ChewTAB PO PRN (23:22)
[2019-10-22] MEDS ORDERED: Vancomycin Sliding Scale 1 EACH FS ONE (23:45)
[2019-10-22] MEDS ORDERED: Vancomycin HCl 500 MG in Sodium Chloride 0.9% 100 ML IVPB SCH (23:45)
[2019-10-22] MEDS ORDERED: Vancomycin HCl 750 MG in Sodium Chloride 0.9% 250 ML 250 ML IVPB SCH (23:45)
[2019-10-22] MEDS ORDERED: Vancomycin HCl 1 GM in Premix Bag 1 BAG IVPB SCH (23:45)
[2019-10-22] MEDS ORDERED: HOLD VANCOMYCIN FOR LEVEL >20 FS SCH (23:45)
[2019-10-23] MEDS ORDERED: Piperacillin/Tazobactam 2.25 GM in Sodium Chloride 0.9% 100 ML IVPB SCH ×2 (01:00→01:15)
[2019-10-23] MEDS ORDERED: Lorazepam 2 MG/ML VIAL SLOW IVP SCH (02:00)
[2019-10-23] MEDS ORDERED: Sodium Chloride 0.9% 500 ML IV SCH (02:00)
[2019-10-23] MEDS: Acetaminophen 325 MG TAB PO PRN (02:47)
--- NOTE | 2019-10-23 05:18 | PDOC.FM ---
- Subjective Subjective: Pt has been unable to sleep due to chills. He ate well last night when he was in the ED. He no longer has any vomiting. He is not hurting or in any pain. - Objective MAR Reviewed: Yes Vital Signs & Weight: Vital Signs (12 hours) Temp Pulse Resp BP Pulse Ox 10/23/19 04:00 99.8 F H 108 H 16 104/55 L 98 10/23/19 03:00 102.8 F H 10/23/19 01:20 100.4 F H 99 16 144/79 H 96 10/22/19 22:27 101.4 F H 104 H 20 170/86 H 99 Weight Weight 79.152 kg Result Diagrams: 10/23/19 05:48 10/23/19 05:48 Phys Exam - Physical Examination Constitutional: NAD HEENT: PERRLA, moist MMs, sclera anicteric Neck: supple, full ROM upper airway sounds present Cardiovascular: RRR holosystolic murmur Gastrointestinal: soft, non-tender, positive bowel sounds Musculoskeletal: no edema, pulses present Neurological: moves all 4 limbs Psychiatric: normal affect Skin: no rash Deviation from normal: no erythema around catheter Dx/Plan (1) Sepsis Code(s): A41.9 - SEPSIS, UNSPECIFIED ORGANISM Status: Acute (2) Bacteremia Code(s): R78.81 - BACTEREMIA Status: Acute (3) ESRD (end stage renal disease) on dialysis Code(s): N18.6 - END STAGE RENAL DISEASE; Z99.2 - DEPENDENCE ON RENAL DIALYSIS Status: Acute (4) Diabetes mellitus Code(s): E11.9 - TYPE 2 DIABETES MELLITUS WITHOUT COMPLICATIONS Status: Acute (5) Hypertension Code(s): I10 - ESSENTIAL (PRIMARY) HYPERTENSION Status: Acute - Plan Plan: 39 y/o M PMHx ESRD on HD T//Mon, DMII, & HTN presents to the ED as a transfer because of fever during dialysis. 1. Sepsis without a source Pt with new heart murmur developed a fever while at dialysis. * Pt with dialysis catheter in place. Suspect catheter infection vs bacteremia vs endocarditis vs UTI * CXR: NAF * Flu: Negative * WBC: 11.5 > 14.7 * UCx: pending * Procal: 3.01 > 5.84 * In the ED he received Vanc and Rocephin 10/22 * Will start pt on Vanc and Zosyn 10/23 * BCx: pending from OSH * Line Cx: pending * LA: 2.2 * Repeat * Pt now with working AV fistula for dialysis, in the setting of suspected bacteremia. * Consulted Dr. Irving with general surgery to discuss removing catheter * Catheter was to be removed 10/15, but had to reschedule 2. ESRD on HD Dialysis schedule * Consulted Dr. Hatfield * Continue HD regular schedule while hospitalized * Will restart Calcitriol 3. DM2 * Accuchecks * SSI * Hypoglycemia protocol * Continue home meds 4. HTN * Continue Lisinopril & Carvedilol Code Status: Full Diet: CC, Renal- High Protein DVT PPx: Heparin PCP: [facility] Dispo: Medical Inpt, LOS > 48H. Need to contact outside hospital and see about Cx. Continue Vanc & Zosyn. Will see about catheter removal. Addendum - Attending - Attending Attestation Date/Time: 10/23/19 1038 I personally evaluated the patient and discussed the management with Dr. Hilario. I agree with the History, Examination, Assessment and Plan documented above with any addition or exceptions noted below. The patient states he is feeling a little better. He has been febrile overnight. Pt had hypoglycemia after receiving insulin this morning. Will change sliding scale to mild. We just received a call from [facility] in [place] noting he has 3/3 blood cultures positive for gram negative rods. Sensitivities are pending. Will continue vanc and zosyn until these result. Pt still meets sepsis criteria. Will trend procal. Surgery is being consulted to removed catheter. Nephro consulted for dialysis mgmt. Antibiotics renal dosed.
[2019-10-23 06:23] LABS: Band 8 % (5-11); Eosinophils 1 % (0-10); Hemoglobin 11.3 g/dL (14.0-18.0); Lymphocytes 10 % (21-51); MDiff Complete? YES; Mean Corpuscular HGB CONC 34.1 g/dL (32.0-36.0); Mean Corpuscular Hemoglobin 30.7 pg (27.0-31.0); Mean Corpuscular Volume 90.2 fL (78.0-98.0); Mean Platelet Volume 7.6 fL (7.4-10.4); Monocytes 2 % (0-10); Neutrophil 79 % (42-75); Platelet Count 189 thou/uL (130-400); RBC Distribution Width 13.5 % (11.5-14.5); Red Blood Cell (RBC) Count 3.66 mill/uL (4.70-6.10); White Blood Cell (WBC) Count 14.7 thou/uL (4.8-10.8)
[2019-10-23 06:47] LABS: Anion Gap 16 mmol/L (10-20); BUN (Urea Nitrogen) 38 mg/dL (8.9-20.6); Calc. Creatinine Clearance 12 mL/min (70-130); Calcium 8.1 mg/dL (7.8-10.44); Carbon Dioxide 24 mmol/L (22-29); Chloride 99 mmol/L (98-107); Estimated GFR-MDRD 6; Glucose 139 mg/dL (70-105); Potassium 4.7 mmol/L (3.5-5.1); Sodium 134 mmol/L (136-145)
[2019-10-23] MEDS ORDERED: Heparin 10,000 UNITS/1 ML VIAL ONE (07:31)
[2019-10-23] MEDS: Heparin 5,000 UNITS/ML VIAL SC SCH ×2 (08:06→20:35)
[2019-10-23] MEDS: Calcium Carbonate 500 MG ChewTAB PO PRN ×2 (08:07→20:45)
[2019-10-23] MEDS: Carvedilol 6.25 MG TAB PO SCH (08:07)
[2019-10-23] MEDS: Calcitriol 0.25 MCG CAP PO SCH (08:08)
--- NOTE | 2019-10-23 10:14 | PRG ---
DATE OF SERVICE: 10/23/2019 SUBJECTIVE: Mr. Macias is a 39-year-old male with ESRD from a presumed diabetic nephropathy. We are being consulted for management of his ESRD. He did receive dialysis yesterday. He was admitted for fever and chills. The suspicion is maybe a line bacteremia. No other complaints today. No chest pain or shortness of breath. OBJECTIVE: VITAL SIGNS: Blood pressure 117/66, heart rate 62, respiratory rate 18, temperature 98.6, and pulse ox 99%. GENERAL: Noted to be awake, alert, and comfortable, not in overt distress. SKIN: Adequate turgor. HEENT: He has pinkish conjunctivae. Anicteric sclerae. NECK: No neck mass. No carotid bruits. No JVD. CHEST: No deformities. LUNGS: Clear breath sounds. No wheezing. No crackles. CHEST: He has a right IJ dialysis catheter. HEART: Normal sinus rhythm. No murmur. No gallops. No rubs. ABDOMEN: Globular, soft, and nontender. No masses. EXTREMITIES: No edema. No deformities. MEDICATIONS: Medications of October 23, 2019, reviewed. LABORATORY DATA: Laboratories of October 23, 2019; white count 14.7, hemoglobin 11.3. Sodium 134, potassium 4.7, chloride 99, carbon dioxide 24, BUN 38, creatinine 9.51, glucose 139, and calcium 8.1. Blood culture, no growth today. ASSESSMENT AND PLAN: 1. End-stage renal disease, stable. We will continue current Monday, , and Monday hemodialysis regimen. Fluid removal. The fluid removal as tolerated. 2. Fever and chills - consider line bacteremia. Depending the blood culture, we may need to consider pulling out the dialysis catheter. Consulting surgery to do this. 3. Hyperphosphatemia. The patient will be started on Renvela 800 mg one tablet t.i.d. with meals. Continue supportive care. I have made arrangements for him to be dialyzed tomorrow. Job ID: [id number]
[2019-10-23] MEDS ORDERED: Dextrose 5% in Water 1,000 ML IV PRN (10:45)
[2019-10-23] MEDS ORDERED: Dextrose 50% Abboject 50 ML SYRINGE SLOW IVP PRN (10:45)
[2019-10-23] MEDS ORDERED: HumaLOG 300 UNITS/3 ML VIAL SC PRN (10:45)
[2019-10-23] MEDS: Lisinopril 10 MG TAB PO SCH (11:54)
[2019-10-23] MEDS: Sevelamer Carbonate 800 MG TAB PO SCH ×2 (12:24→17:33)
[2019-10-23] MEDS: Piperacillin/Tazobactam 2.25 GM in Sodium Chloride 0.9% 100 ML IVPB SCH (12:24)
[2019-10-23] MEDS ORDERED: SODIUM CHLORIDE 0.9% IVPB SCH (15:00)
[2019-10-23] MEDS ORDERED: VANCOMYCIN HCL IVPB SCH (15:00)
[2019-10-23] MEDS ORDERED: diphenhydrAMINE 25 MG CAP PO SCH (23:59)
[2019-10-24] MEDS: Piperacillin/Tazobactam 2.25 GM in Sodium Chloride 0.9% 100 ML IVPB SCH ×2 (00:44→12:10)
[2019-10-24] MEDS: Calcium Carbonate 500 MG ChewTAB PO PRN ×2 (00:44→20:20)
--- NOTE | 2019-10-24 05:51 | PDOC.FM ---
- Subjective Subjective: He is feeling better today. He has had no more night sweats. He is eating, sleeping, and walking around well. - Objective MAR Reviewed: Yes Vital Signs & Weight: Vital Signs (12 hours) Temp Pulse Resp BP Pulse Ox 10/24/19 04:00 98.0 F 76 20 153/81 H 100 10/23/19 23:49 98.0 F 77 20 163/81 H 100 10/23/19 20:13 98.0 F 64 20 155/84 H 96 10/23/19 20:00 96 Weight Weight 79.152 kg I&O: 10/22/19 10/23/19 10/24/19 06:59 06:59 06:59 Intake Total 1800 Output Total 200 Balance 1600 Result Diagrams: 10/24/19 05:53 10/24/19 05:53 Phys Exam - Physical Examination Constitutional: NAD HEENT: moist MMs, oral pharynx no lesions Neck: supple, full ROM Respiratory: clear to auscultation bilateral Soft holosystolic murmur in the aortic region Gastrointestinal: soft, non-tender, positive bowel sounds Musculoskeletal: no edema, pulses present Neurological: non-focal, moves all 4 limbs Psychiatric: normal affect Skin: no rash Dx/Plan (1) Sepsis Code(s): A41.9 - SEPSIS, UNSPECIFIED ORGANISM Status: Acute (2) Bacteremia Code(s): R78.81 - BACTEREMIA Status: Acute (3) ESRD (end stage renal disease) on dialysis Code(s): N18.6 - END STAGE RENAL DISEASE; Z99.2 - DEPENDENCE ON RENAL DIALYSIS Status: Acute (4) Diabetes mellitus Code(s): E11.9 - TYPE 2 DIABETES MELLITUS WITHOUT COMPLICATIONS Status: Acute (5) Hypertension Code(s): I10 - ESSENTIAL (PRIMARY) HYPERTENSION Status: Acute - Plan Plan: 39 y/o M PMHx ESRD on HD T//Mon, DMII, & HTN presents to the ED as a transfer because of fever during dialysis. 1. Sepsis without a source Pt with new heart murmur developed a fever while at dialysis. * Pt with dialysis catheter in place. Suspect catheter infection vs bacteremia vs endocarditis vs UTI * CXR: NAF * Flu: Negative * WBC: 11.5 > 14.7 > 6.3 * UCx: pending * Procal: 3.01 > 5.84 > 14.59 > 25.56 * In the ED he received Vanc and Rocephin 10/22 * Started pt on Vanc and Zosyn 10/23 * BCx: Gram Negative Rods * Line Cx: Klebsiella oxytoca * LA: 2.2 * Repeat LA: 1.1 * Pt now with working AV fistula for dialysis, in the setting of suspected bacteremia. * Consulted Dr. Irving with general surgery to discuss removing catheter, he will remove today (10/24) * Catheter was to be removed 10/15, but had to reschedule 2. ESRD on HD Dialysis schedule /Mon * Consulted Dr. Hatfield * Continue HD regular schedule while hospitalized * Will restart Calcitriol 3. DM2 * Accuchecks * SSI * Hypoglycemia protocol 4. HTN BP: 104/55-163/81 * Continue Lisinopril & Carvedilol * Will monitor and adjust blood pressure f they increase. Code Status: Full Diet: CC, Renal- High Protein DVT PPx: Heparin PCP: [facility] Dispo: Medical Inpt, LOS > 48H. Will await sensitivities and [facility] about sensitivities. Continue Vanc & Zosyn. Pt to receive dialysis today. Will repeat procal after. Addendum - Attending - Attending Attestation Date/Time: 10/24/19 2444 I personally evaluated the patient and discussed the management with Dr. Hilario. I agree with the History, Examination, Assessment and Plan documented above with any addition or exceptions noted below. The patient is feeling a little better. His cultures are growing klebsiella. Waiting on sensitivities. Getting dialysis today. Continue IV antibiotics.
[2019-10-24 06:11] LABS: #Eosinphils 0.6 thou/uL (0.0-0.7); #Lymphocytes 1.7 thou/uL (1.20-3.40); #Monocytes 0.8 thou/uL (0.11-0.59); #Neutrophils 3.2 thou/uL (1.40-6.50); %Basophils 0.7 % (0.0-1.0); %Eosinophils 9.7 % (0.0-10.0); %Lymphocytes 26.4 % (21.0-51.0); %Monocytes 12.6 % (0.0-10.0); %Neutrophils 50.5 % (42.0-75.0); Hemoglobin 11.6 g/dL (14.0-18.0); Mean Corpuscular HGB CONC 33.1 g/dL (32.0-36.0); Mean Corpuscular Hemoglobin 30.2 pg (27.0-31.0); Mean Corpuscular Volume 91.4 fL (78.0-98.0); Mean Platelet Volume 7.6 fL (7.4-10.4); Platelet Count 204 thou/uL (130-400); RBC Distribution Width 13.3 % (11.5-14.5); Red Blood Cell (RBC) Count 3.84 mill/uL (4.70-6.10); White Blood Cell (WBC) Count 6.3 thou/uL (4.8-10.8)
[2019-10-24 06:31] LABS: Anion Gap 18 mmol/L (10-20); BUN (Urea Nitrogen) 42 mg/dL (8.9-20.6); Calc. Creatinine Clearance 10 mL/min (70-130); Calcium 8.5 mg/dL (7.8-10.44); Carbon Dioxide 23 mmol/L (22-29); Chloride 102 mmol/L (98-107); Estimated GFR-MDRD 5; Glucose 95 mg/dL (70-105); Potassium 4.7 mmol/L (3.5-5.1); Sodium 138 mmol/L (136-145)
[2019-10-24 08:18] LABS: Vancomycin, Random 20.7 ug/mL (See Comment)
--- NOTE | 2019-10-24 08:45 | PRG ---
DATE OF SERVICE: SUBJECTIVE: Mr. Macias is a 39-year-old male with ESRD, admitted for fever and chills. He was found to have a line bacteremia. For this reason, he is currently on IV antibiotics and dialysis catheter will be pulled out by Dr. Irving. No other complaints today. The patient denies any chest pain or shortness of breath. OBJECTIVE: VITAL SIGNS: Blood pressure 167/81, heart rate 69, respiratory rate 20, temperature 98.1, and pulse ox 97%. GENERAL: The patient is awake, alert, comfortable, not in overt distress. SKIN: Adequate turgor. HEENT: He has pinkish conjunctivae. Anicteric sclerae. No neck mass. No carotid bruits. No JVD. CHEST: No deformities. LUNGS: Clear breath sounds. HEART: Normal sinus rhythm. No murmur. No gallops. No rubs. ABDOMEN: Globular, soft, and nontender. No masses. EXTREMITIES: No edema. No deformities. MEDICATIONS: Medications of October 24, 2019 was reviewed. LABORATORY DATA: Laboratories of October 24, 2019; white count 6.2, hemoglobin 11.6, sodium 138, potassium 4.7, chloride 102, carbon dioxide 23, BUN 42, creatinine 11.54, calcium 8.5, and procalcitonin 25.56. Blood culture showed Klebsiella. ASSESSMENT/PLAN: 1. Gram-negative bacteremia - currently on IV antibiotics. The patient will have his dialysis catheter pulled out. Agree with plan management. 2. End-stage renal disease, stable, currently undergoing hemodialysis. Fluid removal only as tolerated. Continue supportive care. Job ID: [id number] [facility]
[2019-10-24] MEDS: Sevelamer Carbonate 800 MG TAB PO SCH ×3 (10:07→17:40)
[2019-10-24] MEDS: Carvedilol 6.25 MG TAB PO SCH (10:08)
[2019-10-24] MEDS: Calcitriol 0.25 MCG CAP PO SCH (10:08)
[2019-10-24] MEDS: Heparin 5,000 UNITS/ML VIAL SC SCH ×2 (10:08→20:13)
[2019-10-24] MEDS: Lisinopril 10 MG TAB PO SCH (10:09)
[2019-10-24] MEDS: Acetaminophen 325 MG TAB PO PRN (15:37)
[2019-10-24] MEDS ORDERED: Cepastat Lozenges 1 LOZ PO PRN (16:49)
[2019-10-25] MEDS: Calcium Carbonate 500 MG ChewTAB PO PRN ×3 (00:24→20:09)
[2019-10-25] MEDS: Piperacillin/Tazobactam 2.25 GM in Sodium Chloride 0.9% 100 ML IVPB SCH (00:25)
--- NOTE | 2019-10-25 06:03 | PDOC.FM ---
- Subjective Subjective: Pt resting well in bed. Catheter still in place in R upper chest. Afebrile overnight. No acute overnight events. Pt denies any pain. - Objective MAR Reviewed: Yes Vital Signs & Weight: Vital Signs (12 hours) Temp Pulse Resp BP Pulse Ox 10/25/19 04:54 98.2 F 67 18 126/78 98 10/25/19 00:46 97.8 F 59 L 16 149/82 H 100 10/24/19 20:12 96 10/24/19 19:00 98.1 F 62 16 162/75 H 96 Weight Weight 79.152 kg I&O: 10/23/19 10/24/19 10/25/19 06:59 06:59 06:59 Intake Total 1800 600 Output Total 200 Balance 1600 600 Result Diagrams: 10/24/19 05:53 10/24/19 05:53 Phys Exam - Physical Examination Constitutional: NAD HEENT: moist MMs Neck: no nodes, full ROM Respiratory: no wheezing, no rales, no rhonchi, clear to auscultation bilateral Cardiovascular: RRR, no rub holosystolic murmur Gastrointestinal: soft, non-tender, no distention Neurological: non-focal, moves all 4 limbs Psychiatric: normal affect, A&O x 3 Skin: no rash, normal turgor Dx/Plan (1) Bacteremia Code(s): R78.81 - BACTEREMIA Status: Acute (2) Diabetes mellitus Code(s): E11.9 - TYPE 2 DIABETES MELLITUS WITHOUT COMPLICATIONS Status: Chronic (3) ESRD (end stage renal disease) on dialysis Code(s): N18.6 - END STAGE RENAL DISEASE; Z99.2 - DEPENDENCE ON RENAL DIALYSIS Status: Chronic (4) Sepsis Code(s): A41.9 - SEPSIS, UNSPECIFIED ORGANISM Status: Acute (5) Hypertension Code(s): I10 - ESSENTIAL (PRIMARY) HYPERTENSION Status: Chronic - Plan Plan: 39 y/o M PMHx ESRD on HD T//Mon, DMII, & HTN presents to the ED as a transfer because of fever during dialysis. 1. Sepsis without a source Pt with new heart murmur developed a fever while at dialysis. * Pt with dialysis catheter in place. Suspect catheter infection vs bacteremia vs endocarditis vs UTI * CXR: NAF * Flu: Negative * WBC: 11.5 > 14.7 > 6.3 * UCx: pending * Procal: 3.01 > 5.84 > 14.59 > 25.56 * In the ED he received Vanc and Rocephin 10/22 * Started pt on Vanc and Zosyn 10/23 * BCx: Gram Negative Rods * Line Cx: Klebsiella oxytoca * LA: 2.2 * Repeat LA: 1.1 * Pt now with working AV fistula for dialysis, in the setting of suspected bacteremia. * Consulted Dr. Irving with general surgery to discuss removing catheter, he will remove today (10/24) * Catheter was to be removed 10/15, but had to reschedule 2. ESRD on HD Dialysis schedule T//Sat * Consulted Dr. Hatfield * Continue HD regular schedule while hospitalized * Will restart Calcitriol 3. DM2 * Accuchecks * SSI * Hypoglycemia protocol 4. HTN BP: 104/55-163/81 * Continue Lisinopril & Carvedilol * Will monitor and adjust blood pressure if they increase. Code Status: Full Diet: CC, Renal- High Protein DVT PPx: Heparin PCP: [facility] Dispo: Medical Inpt, LOS > 48H. Will await sensitivities and [facility] about sensitivities. Continue Vanc & Zosyn. Pt to receive dialysis T//Sat. Will repeat procal after. Addendum - Attending - Attending Attestation Date/Time: 10/25/19 1028 I personally evaluated the patient and discussed the management with Dr. Bryant. I agree with the History, Examination, Assessment and Plan documented above with any addition or exceptions noted below. Will discuss catheter removal with different surgeon. Will consult Dr. Ortiz for antibiotic recs. D/c vanc, continue zosyn. Getting echo to further evaluate bacteremia.
[2019-10-25] MEDS: Lisinopril 10 MG TAB PO SCH (08:31)
[2019-10-25] MEDS: Sevelamer Carbonate 800 MG TAB PO SCH ×3 (08:31→17:03)
[2019-10-25] MEDS: Calcitriol 0.25 MCG CAP PO SCH (08:31)
[2019-10-25] MEDS: Carvedilol 6.25 MG TAB PO SCH (08:31)
[2019-10-25] MEDS: Heparin 5,000 UNITS/ML VIAL SC SCH ×2 (08:33→20:16)
[2019-10-25 09:25] LABS: Vancomycin, Trough 14.7 ug/mL
[2019-10-25] MEDS ORDERED: Lidocaine 1% w/Epinephrine 1:100K 20 ML VIAL ONE (10:29)
[2019-10-25] MEDS ORDERED: Cefepime 1 GM in Sodium Chloride 0.9% 100 ML IVPB SCH (11:15)
--- NOTE | 2019-10-25 14:10 | OP ---
DATE OF PROCEDURE: 10/25/2019 PREOPERATIVE DIAGNOSES: 1. Bacteremia. 2. End-stage renal disease. POSTOPERATIVE DIAGNOSES: 1. Bacteremia. 2. End-stage renal disease. PROCEDURE PERFORMED: Removal of tunneled central line with subcutaneous cuff (a HemoSplit dialysis catheter). ANESTHESIA: Local. ESTIMATED BLOOD LOSS: Minimal. COMPLICATIONS: None. SPECIMEN: None. DESCRIPTION OF PROCEDURE: The exit site for the hemodialysis catheter in the right chest was prepped and draped in a sterile fashion. Local anesthetic was infiltrated up around the cuff. The cuff was dissected free from the surrounding scar tissue. The catheter was pulled and removed. Pressure was held on neck for 10 minutes. Sterile dressings were placed. Those dressings can be removed tomorrow. The patient tolerated the procedure well. Job ID: [id number]
[2019-10-25] MEDS: Acetaminophen 325 MG TAB PO PRN ×2 (17:43→22:46)
--- NOTE | 2019-10-26 06:31 | PDOC.FM ---
- Subjective Subjective: Pt is doing well this AM. Tolerated procedure well yesterday for removal of cath , by Dr. Anne. Has no complains. No overnight events. Afebrile. - Objective MAR Reviewed: Yes Vital Signs & Weight: Vital Signs (12 hours) Temp Pulse Resp BP Pulse Ox 10/26/19 05:37 97.5 F L 68 16 148/85 H 97 10/25/19 20:00 98.4 F 65 16 165/82 H 96 Weight Weight 79.152 kg I&O: 10/24/19 10/25/19 10/26/19 06:59 06:59 06:59 Intake Total 1800 1160 1340 Output Total 200 Balance 1600 1160 1340 Result Diagrams: 10/24/19 05:53 10/24/19 05:53 Phys Exam - Physical Examination Constitutional: NAD HEENT: PERRLA, moist MMs Neck: no nodes, supple Respiratory: no wheezing, no rales, no rhonchi, clear to auscultation bilateral Cardiovascular: RRR, no rub soft systolic murmur. Gastrointestinal: soft, non-tender, no distention, positive bowel sounds Musculoskeletal: pulses present Neurological: non-focal, moves all 4 limbs Psychiatric: normal affect, A&O x 3 Skin: no rash Dx/Plan (1) Sepsis Code(s): A41.9 - SEPSIS, UNSPECIFIED ORGANISM Status: Acute (2) Bacteremia Code(s): R78.81 - BACTEREMIA Status: Acute (3) Diabetes mellitus Code(s): E11.9 - TYPE 2 DIABETES MELLITUS WITHOUT COMPLICATIONS Status: Chronic (4) ESRD (end stage renal disease) on dialysis Code(s): N18.6 - END STAGE RENAL DISEASE; Z99.2 - DEPENDENCE ON RENAL DIALYSIS Status: Chronic (5) Hypertension Code(s): I10 - ESSENTIAL (PRIMARY) HYPERTENSION Status: Chronic - Plan Plan: 39 y/o M PMHx ESRD on HD T//Mon, DMII, & HTN presents to the ED as a transfer because of fever during dialysis. Admitted for treatment of sepsis 2/2 dialysis catheter colonized with Klebsiella. 1. Sepsis, presumed source Dialysis cath. Pt with new heart murmur developed a fever while at dialysis. * Pt with dialysis catheter in place. Suspect catheter infection vs bacteremia vs endocarditis * CXR: NAF, Flu: Negative, WBC: 11.5 > 14.7 > 6.3, UCx: no growth, Procal: 3.01 > 5.84 > 14.59 > 25.56 > 23.68 * Echo pending * In the ED he received Vanc and Rocephin 10/22 * Started pt on Vanc and Zosyn 10/23, D/C'd 10/25 * Stared on Cefepime 10/25, as sensitivities showed resistance to zosyn. * BCx: Gram Negative Rods * Line Cx: Klebsiella oxytoca * Resistant to zosyn * LA: 2.2 * Repeat LA: 1.1 * Pt now with working AV fistula for dialysis, in the setting of suspected bacteremia. * Consulted Dr. Irving with general surgery to discuss removing catheter. Was Not removed by 10/25, and consulted Dr. Anne. Dr. Anne removed catheter on 10/25. * Catheter was to be removed 10/15, but had to reschedule * Dr. Ortiz consulted; appreciate recommendations. 2. ESRD on HD Dialysis schedule T//Mon * Consulted Dr. Hatfield * Continue HD regular schedule while hospitalized * Will restart Calcitriol 3. DM2 * Accuchecks * SSI * Hypoglycemia protocol 4. HTN BP: 104/55-163/81 * Continue Lisinopril & Carvedilol * Will monitor and adjust blood pressure if they increase. 5. Holosystolic murmur * Echo pending * Has been afebrile. * Murmur has improved Code Status: Full Diet: CC, Renal- High Protein DVT PPx: Heparin PCP: [facility] Dispo: Medical Inpt, LOS > 48H. Pt to receive dialysis T//Mon. Catheter removed 10/[address] Ortiz consulted on 10/25. Continuing antibiotic therapy.
[2019-10-26 07:32] VITALS: TEMP 97.7
[2019-10-26] MEDS: Calcitriol 0.25 MCG CAP PO SCH (07:53)
[2019-10-26] MEDS: Heparin 5,000 UNITS/ML VIAL SC SCH (07:53)
[2019-10-26] MEDS: Lisinopril 10 MG TAB PO SCH (07:53)
[2019-10-26] MEDS: Carvedilol 6.25 MG TAB PO SCH (07:53)
[2019-10-26] MEDS: Sevelamer Carbonate 800 MG TAB PO SCH ×3 (07:53→17:19)
[2019-10-26 07:57] VITALS: BP 117/66
--- NOTE | 2019-10-26 09:59 | PRG ---
DATE OF SERVICE: 10/26/2019 SUBJECTIVE: Mr. Macias is a 39-year-old male with ESRD. He was admitted for line bacteremia. He is on IV antibiotics. His dialysis catheter has been removed. We are following him up for his hemodialysis. OBJECTIVE: VITAL SIGNS: Blood pressure 156/86, heart rate 68, respiratory rate 18, temperature 97.7, pulse ox 97%. GENERAL: Noted to be awake, alert, comfortable, not in distress, ambulatory. SKIN: Adequate turgor. HEENT: He has pinkish conjunctivae. Anicteric sclerae. NECK: No neck mass. No carotid bruits. No JVD. CHEST: No deformities. LUNGS: Clear breath sounds. HEART: Normal sinus rhythm. No murmur. No gallops. No rubs. ABDOMEN: Globular, soft, nontender, no masses. EXTREMITIES: No edema, no deformities. MEDICATIONS: October 26, 2019, reviewed. LABORATORY DATA: October 24, 2019, white count 6.3, hemoglobin 11.6. October 26, 2019, glucose 89. October 24, 2019, BUN 42, creatinine 11.5, potassium 4.7. ASSESSMENT AND PLAN: 1. End-stage renal disease, stable, continuing Monday, , and Monday hemodialysis. Fluid removal as tolerated. 2. Line bacteremia-clinically much improved. Dialysis catheter has been pulled. On IV antibiotics. Agree with current management. Job ID: [id number]
[2019-10-26] MEDS ORDERED: Cefepime 0.5 GM, Admixture Fee 1 EACH in Sodium Chloride 0.9% 100 ML IVPB SCH (11:00)
--- NOTE | 2019-10-26 19:22 | CON ---
DATE OF CONSULTATION: 10/26/2019 REASON FOR CONSULTATION: Bacteremia. HISTORY OF PRESENT ILLNESS: This is a 39-year-old who has a history of end-stage renal disease, presumably due to hypertension, who has been started on hemodialysis through a tunneled catheter in the right IJ position in July. At the same time, the patient had an AV fistula placed, which has matured and at this time, he was admitted with sepsis. Dr. Anne removed the hemodialysis catheter, which was obviously infected. The patient is being dialyzed through an AV fistula. Currently, he is being dialyzed. Denies headaches. No visual symptoms, sore throat, odynophagia, dysphagia, mild pain at the site of the previous catheter, which has been removed. No back tenderness or pain. No cough or sputum production or dyspnea. No abdominal pain or diarrhea. Still has urinary output. No other joint symptoms. No neurological symptoms. MEDICAL HISTORY: Hypertension, type 2 diabetes, end-stage renal disease, on hemodialysis through a fistula, right upper extremity. SOCIAL HISTORY: History of prior cocaine use. Positive smoking for many years. Drinks occasionally. ALLERGIES: NONE. CURRENT MEDICATIONS: Coreg, cefepime, lisinopril. FAMILY HISTORY: Noncontributory. PHYSICAL EXAMINATION: VITAL SIGNS: With T-max of 102.8 on admission, he has been afebrile since. Blood pressure 150/80, pulse 68, respirations 18, O2 saturation 97. SKIN: With a site where the catheter had been present and the accessed right upper extremity AV fistula. He does not have Campbell catheter. LYMPHATICS: No lymphadenopathy. HEENT: Mild conjunctival hyperemia. Pupils are 2 mm and reactive. Oral cavity, no thrush. Numerous teeth in place with quite preserved state with very little gum disease. NECK: Supple. No jugular vein distention or carotid bruits. LUNGS: Symmetric. Clear breath sounds. HEART: S1, S2. Regular rate. No S3 or S4. ABDOMEN: Soft, nondistended, nontender. No ascites. No bladder distention. MUSCULOSKELETAL: No joint inflammatory activity. Pulses are 2+ in dorsalis pedis. Plantar response are flexor. Moves extremities equally. Cognitive function appears to be intact. LABORATORY DATA: Latest labs with a creatinine of 11.54, CO2 23, sodium 138, potassium 4.7. White cell count down from 14 to 6.3, hemoglobin 11, platelets 204, decreased in neutrophil percentage from 79-50. Microbiology with four different gram-negative rods including Aeromonas, Ochrobactrum, Klebsiella, Achromobacter. They are all susceptible to quinolones. ASSESSMENT: Type 2 diabetes, untreated hypertension with end-stage renal disease on hemodialysis with an AV fistula, previously with a hemodialysis catheter, which has been removed due to the infection noted above. The patient now is eligible for discharge planning on oral levofloxacin or ciprofloxacin adjusted for renal function. Treat for about 2 weeks. No evidence of end-organ dissemination at this point, specifically no evidence of spinal, endocardial, lung, or intraabdominal involvement or other joint involvement. Job ID: [id number]
[2019-10-26] MEDS ORDERED: Cipro 250 MG TAB PO SCH (20:00)
--- NOTE | 2019-10-27 11:07 | DIS ---
DATE OF ADMISSION: 10/23/2019 DATE OF DISCHARGE: 10/26/2019 RESIDENT: Kena Knox DO. ADMITTING ATTENDING: Guillermo Espinoza MD. DISCHARGE ATTENDING: Dr. Sinha. CONSULTS: 1. Case Management. 2. General surgery, Dr. Irving. 3. General surgery, Dr. Anne. 4. Infectious Disease, Dr. Ortiz. 5. Nephrology, Dr. Hatfield. PROCEDURES: 1. Hemodialysis. 2. Dialysis catheter removal by Dr. Anne. 3. Echocardiogram, which shows left ventricle in normal size. 4. Ejection fraction of 60% to 65%. 5. Mild concentric left ventricular hypertrophy. DIAGNOSES: 1. Sepsis secondary to dialysis catheter, bacterial colonization. 2. Bacteremia. 3. End-stage renal dialysis, on hemodialysis. 4. Diabetes mellitus type 2. 5. Hypertension. 6. Holosystolic murmur. DISCHARGE MEDICATIONS: 1. Cipro p.o. b.i.d. for 10 days. 2. Renvela 800 mg p.o. t.i.d. with meals. 3. Lisinopril 10 mg p.o. daily. 4. Carvedilol 12.5 mg p.o. b.i.d. 5. Calcitriol 0.25 mcg p.o. daily. HISTORY OF PRESENT ILLNESS/HOSPITAL COURSE: Mr. Macias is a 39-year-old male with a history of end-stage renal disease, on hemodialysis, came in with sepsis of unknown source, was found to be bacteremic with blood cultures that grew Klebsiella oxytoca bacteria, which also grew from the dialysis catheter culture. Dr. Harris in general surgery was consulted on 10/23 to remove the dialysis catheter. Unfortunately, this did not happen. On 10/25, Dr. Anne was consulted who then removed the dialysis catheter. Dr. Hatfield was consulted for nephrology to manage the hemodialysis inpatient. Dr. Ortiz was consulted for outpatient antibiotic recommendations who recommended 10 days of Cipro b.i.d. 250 mg. The susceptibilities of the cultures were resistant to Zosyn. The patient was originally on vanc and Zosyn from admission on the to . When these sensitivities came back, patient's antibiotic was changed to cefepime on the , which was then transitioned to p.o. Cipro on the before discharge. The patient had an echocardiogram, because of a holosystolic murmur that was auscultated upon admission, this murmur gradually improved over the hospital course and was very soft on day of discharge. The echocardiogram came back normal with no vegetations. DISPOSITION: The patient was stable upon discharge. DISCHARGE INSTRUCTIONS: Location: To home. Diet: Renal diet, high-protein. Activity: As tolerated. Followup: With Dr. Ortiz in [address] Hatfield in 7 days. Job ID: [id number] [id number]
== END 2019-10-26 17:52 | disposition home or self-care (01) | DRG 314 ==
LOC: ERS 18:57 → T4-B 20:54 → OBSVTOIN 10-23 07:10
PROVIDERS: ADMIT Family Medicine; ATTEND Family Medicine
PROC: 5A1D70Z Performance of Urinary Filtration, Intermittent, Less than 6 Hours Per Day (ICD-10-PCS; 2019-10-23)
PROC: 0JPT3XZ Removal of Tunneled Vascular Access Device from Trunk Subcutaneous Tissue and Fascia, Percutaneous Approach (ICD-10-PCS; principal; 2019-10-25)
PROC: 02PYX3Z Removal of Infusion Device from Great Vessel, External Approach (ICD-10-PCS; 2019-10-25)
DX: T80.211A Bloodstream infection due to central venous catheter, initial encounter (principal); A41.9 Sepsis, unspecified organism; N18.6 End stage renal disease; N39.0 Urinary tract infection, site not specified; E11.22 Type 2 diabetes mellitus with diabetic chronic kidney disease; F17.210 Nicotine dependence, cigarettes, uncomplicated; E83.39 Other disorders of phosphorus metabolism
CPT/HCPCS: 36415; 36416; 80048; 80202; 83605; 84145; 85025; 87040; 87077; 87086; 87149; 87186; 93306; 99285; J0692; J1644; J2060; J2543; J3490; Q0163

== ENCOUNTER 2021-02-27 09:47 | Emergency (ER) | payer BC ==
[2021-02-27 10:53] LABS: #Basophils 0.1 thou/uL (0.0-0.2); #Monocytes 0.6 thou/uL (0.11-0.59); #Neutrophils 9.6 thou/uL (1.40-6.50); %Basophils 0.8 % (0.0-1.0); %Eosinophils 7.5 % (0.0-10.0); %Monocytes 4.7 % (0.0-10.0); %Neutrophils 72.1 % (42.0-75.0); Hemoglobin 15.4 g/dL (14.0-18.0); Mean Corpuscular HGB CONC 32.2 g/dL (32.0-36.0); Mean Corpuscular Hemoglobin 30.3 pg (27.0-31.0); Mean Corpuscular Volume 94.2 fL (78.0-98.0); Mean Platelet Volume 7.8 fL (7.4-10.4); Platelet Count 277 thou/uL (130-400); RBC Distribution Width 14.2 % (11.5-14.5); Red Blood Cell (RBC) Count 5.09 mill/uL (4.70-6.10); White Blood Cell (WBC) Count 13.3 thou/uL (4.8-10.8)
[2021-02-27 11:15] LABS: ALT (SGPT) 30 U/L (8-55); AST (SGOT) 32 U/L (5-34); Albumin 4.4 g/dL (3.5-5.0); Alkaline Phosphatase 120 U/L (40-110); Anion Gap 16 mmol/L (10-20); BUN (Urea Nitrogen) 31 mg/dL (8.9-20.6); Bilirubin, Total 0.9 mg/dL (0.2-1.2); Calc. Creatinine Clearance 0 mL/min (70-130); Calcium 10.9 mg/dL (7.8-10.44); Carbon Dioxide 31 mmol/L (22-29); Chloride 95 mmol/L (98-107); Globulin 4.1 g/dL (2.4-3.5); Glucose 100 mg/dL (70-105); Lipase 242 U/L (8-78); Potassium 6.3 mmol/L (3.5-5.1); Protein, Total 8.5 g/dL (6.0-8.3); Sodium 136 mmol/L (136-145)
[2021-02-27] MEDS ORDERED: Morphine 4 MG/ML VIAL ONE ×2 (11:41→12:26)
[2021-02-27] MEDS ORDERED: Ondansetron ODT 4 MG TAB ONE ×2 (11:42→12:26)
[2021-02-27 12:14] LABS: CKMB 1.1 ng/mL (0-6.6)
[2021-02-27] MEDS ORDERED: Dextrose 50% Abboject 50 ML SYRINGE ONE (12:26)
[2021-02-27] MEDS ORDERED: Sodium Bicarb 50 MEQ/50 ML Abboject 8.4% SYRINGE ONE (12:26)
[2021-02-27] MEDS ORDERED: Calcium Chloride 1 GM/10 ML Abboject SYRINGE ONE (12:26)
[2021-02-27] MEDS ORDERED: Albuterol Sulfate 1.25 MG/3 ML NEB ONE (12:26)
[2021-02-27] MEDS ORDERED: Insulin Regular 300 UNITS/3 ML VIAL ONE (12:28)
[2021-02-27] MEDS ORDERED: Albuterol Sulfate 2.5 mg/0.5 ml Neb ONE (13:35)
[2021-02-27] MEDS ORDERED: Albuterol Sulfate 2.5 mg/3 ml Neb ONE (13:35)
[2021-02-27] MEDS ORDERED: traMADol HCl 50 MG TAB ONE (15:04)
== END 2021-02-27 17:17 | disposition home or self-care (01) ==
LOC: ERS 09:47
DX: E87.5 Hyperkalemia (principal); K29.70 Gastritis, unspecified, without bleeding; I12.0 Hypertensive chronic kidney disease with stage 5 chronic kidney disease or end stage renal disease; N18.6 End stage renal disease; F17.210 Nicotine dependence, cigarettes, uncomplicated; Z79.899 Other long term (current) drug therapy
CPT/HCPCS: 36415; 74176; 80053; 82550; 82553; 83690; 83880; 84484; 85025; 90935; 93005; 96372; 96374; 96375; G0257; J1815; J2270; J7611; Q0162

== ENCOUNTER 2022-12-30 15:10 | Inpatient (IN) | payer BC, SELFPAY ==
[2022-12-30 15:33] LABS: #Basophils 0.1 thou/uL (0.0-0.2); #Eosinphils 0.8 thou/uL (0.0-0.7); #Lymphocytes 1.4 thou/uL (1.20-3.40); #Monocytes 0.5 thou/uL (0.11-0.59); %Basophils 0.6 % (0.0-1.0); %Eosinophils 8.9 % (0.0-10.0); %Lymphocytes 16.2 % (21.0-51.0); %Neutrophils 68.3 % (42.0-75.0); Hemoglobin 11.3 g/dL (14.0-18.0); Mean Corpuscular HGB CONC 32.1 g/dL (32.0-36.0); Mean Corpuscular Hemoglobin 31.2 pg (27.0-31.0); Mean Corpuscular Volume 97.4 fl (78.0-98.0); Mean Platelet Volume 9.7 fL (7.4-10.4); Platelet Count 168 10x3/uL (130-400); RBC Distribution Width 13.4 % (11.5-14.5); Red Blood Cell (RBC) Count 3.62 mill/uL (4.70-6.10); White Blood Cell (WBC) Count 8.7 10x3/uL (4.8-10.8)
[2022-12-30 15:54] LABS: ALT (SGPT) 46 U/L (8-55); AST (SGOT) 33 U/L (5-34); Albumin 4.3 g/dL (3.5-5.0); Alkaline Phosphatase 118 U/L (40-110); Anion Gap 21 mmol/L (10-20); BUN (Urea Nitrogen) 69 mg/dL (8.9-20.6); Bilirubin, Total 1.3 mg/dL (0.2-1.2); Calc. Creatinine Clearance 0 mL/min (70-130); Calcium 9.8 mg/dL (7.8-10.44); Carbon Dioxide 24 mmol/L (22-29); Chloride 98 mmol/L (98-107); Estimated GFR 4; Globulin 3.6 g/dL (2.4-3.5); Glucose 95 mg/dL (70-105); Protein, Total 7.9 g/dL (6.0-8.3); Sodium 135 mmol/L (136-145)
[2022-12-30 16:04] LABS: Magnesium 2.6 mg/dL (1.6-2.6)
[2022-12-30 16:06] LABS: Potassium 7.5 mmol/L (3.5-5.1)
[2022-12-30] MEDS ORDERED: Calcium Chloride 1 GM/10 ML Abboject SYRINGE ONE (16:28)
[2022-12-30] MEDS ORDERED: Sodium Bicarb 50 MEQ/50 ML VIAL ONE (16:28)
[2022-12-30] MEDS ORDERED: Fentanyl 100 MCG/2 ML VIAL ONE (16:28)
[2022-12-30] MEDS ORDERED: Ondansetron PF 4 MG/2 ML Vial ONE (16:28)
[2022-12-30] MEDS ORDERED: Insulin Regular 300 UNITS/3 ML VIAL ONE (16:55)
[2022-12-30] MEDS ORDERED: Dextrose 50% Abboject 50 ML SYRINGE ONE (16:55)
[2022-12-30 17:27] LABS: HBSAB Concentration Less than 8.00 mIU/mL; HBSAg Index 0.25 S/CO (0-0.99); Hep B Core Total Ab Non-Reactive (NonReactive); Hep B Core Total Index 0.09 S/CO (0-0.79); Hep B Surf AB Non-Reactive (NonReactive); Hep B Surf Ag Non-Reactive S/CO (NonReactive); Hep C IgG Ab Non-Reactive (NonReactive); Hep C Index 0.71 S/CO (0-0.79)
[2022-12-30] MEDS ORDERED: Piperacillin/Tazobactam 3.375 GM VIAL ONE (18:32)
[2022-12-30] MEDS ORDERED: Ondansetron ODT 4 MG TAB PO PRN (19:46)
[2022-12-30 19:54] LABS: Troponin I 0.025 ng/mL (< 0.028)
[2022-12-30 20:10] LABS: SARS-CoV-2 NAA Rapid Test Not Detected (NotDetected)
[2022-12-30 23:00] LABS: Troponin I 0.025 ng/mL (< 0.028)
[2022-12-31 05:51] LABS: #Basophils 0.1 thou/uL (0.0-0.2); #Eosinphils 0.8 thou/uL (0.0-0.7); #Lymphocytes 1.6 thou/uL (1.20-3.40); #Monocytes 0.6 thou/uL (0.11-0.59); #Neutrophils 5.1 thou/uL (1.40-6.50); %Basophils 0.9 % (0.0-1.0); %Eosinophils 9.4 % (0.0-10.0); %Monocytes 7.1 % (0.0-10.0); %Neutrophils 62.7 % (42.0-75.0); Hemoglobin 10.8 g/dL (14.0-18.0); Mean Corpuscular HGB CONC 32.5 g/dL (32.0-36.0); Mean Corpuscular Hemoglobin 31.2 pg (27.0-31.0); Mean Corpuscular Volume 96.1 fl (78.0-98.0); Mean Platelet Volume 9.7 fL (7.4-10.4); Platelet Count 162 10x3/uL (130-400); RBC Distribution Width 13.3 % (11.5-14.5); Red Blood Cell (RBC) Count 3.45 mill/uL (4.70-6.10); White Blood Cell (WBC) Count 8.1 10x3/uL (4.8-10.8)
[2022-12-31 06:11] LABS: Anion Gap 16 mmol/L (10-20); BUN (Urea Nitrogen) 41 mg/dL (8.9-20.6); Calc. Creatinine Clearance 0 mL/min (70-130); Calcium 8.9 mg/dL (7.8-10.44); Carbon Dioxide 29 mmol/L (22-29); Chloride 96 mmol/L (98-107); Estimated GFR 6; Glucose 78 mg/dL (70-105); Potassium 5.4 mmol/L (3.5-5.1); Sodium 136 mmol/L (136-145)
[2022-12-31 07:44] VITALS: BMI 29.3
[2022-12-31] MEDS: Ondansetron PF 4 MG/2 ML Vial IVP PRN (07:48)
[2022-12-31] MEDS ORDERED: hydrALAZINE 20 MG/ML VIAL SLOW IVP SCH (08:30)
[2022-12-31] MEDS ORDERED: Calcium Carbonate 500 MG ChewTAB PO SCH (08:30)
[2022-12-31] MEDS: Calcium Carbonate 500 MG ChewTAB PO PRN (11:45)
[2022-12-31] MEDS ORDERED: EPOETIN ALFA-EPBX (ESRD) 10,000 UNIT/ML VIAL SC SCH (12:00)
[2022-12-31] MEDS ORDERED: FLU VACC QS2022-23(6MOS UP)/PF 60 MCG/0.5 ML SYRINGE IM ONE (14:00)
[2022-12-31] MEDS: Acetaminophen 325 MG TAB PO PRN (21:48)
[2022-12-31 21:55] LABS: #Basophils 0.1 thou/uL (0.0-0.2); #Eosinphils 0.7 thou/uL (0.0-0.7); #Lymphocytes 1.6 thou/uL (1.20-3.40); #Monocytes 0.5 thou/uL (0.11-0.59); #Neutrophils 3.7 thou/uL (1.40-6.50); %Basophils 1.5 % (0.0-1.0); %Eosinophils 10.2 % (0.0-10.0); %Lymphocytes 24.6 % (21.0-51.0); %Monocytes 7.4 % (0.0-10.0); %Neutrophils 56.3 % (42.0-75.0); Hemoglobin 12.1 g/dL (14.0-18.0); Mean Corpuscular Hemoglobin 31.8 pg (27.0-31.0); Mean Corpuscular Volume 96.3 fl (78.0-98.0); Mean Platelet Volume 9.9 fL (7.4-10.4); Platelet Count 187 10x3/uL (130-400); RBC Distribution Width 13.3 % (11.5-14.5); Red Blood Cell (RBC) Count 3.82 mill/uL (4.70-6.10); White Blood Cell (WBC) Count 6.5 10x3/uL (4.8-10.8)
[2022-12-31 22:17] LABS: Anion Gap 17 mmol/L (10-20); BUN (Urea Nitrogen) 31 mg/dL (8.9-20.6); Calc. Creatinine Clearance 12 mL/min (70-130); Calcium 9.2 mg/dL (7.8-10.44); Carbon Dioxide 25 mmol/L (22-29); Chloride 98 mmol/L (98-107); Estimated GFR 7; Glucose 226 mg/dL (70-105); Potassium 4.8 mmol/L (3.5-5.1); Sodium 135 mmol/L (136-145)
[2023-01-01] MEDS: Acetaminophen 325 MG TAB PO PRN ×2 (04:35→09:40)
[2023-01-01] MEDS: Calcium Carbonate 500 MG ChewTAB PO PRN (04:35)
[2023-01-01 05:35] LABS: #Basophils 0.1 thou/uL (0.0-0.2); #Eosinphils 0.9 thou/uL (0.0-0.7); #Lymphocytes 2.2 thou/uL (1.20-3.40); #Monocytes 0.7 thou/uL (0.11-0.59); #Neutrophils 3.3 thou/uL (1.40-6.50); %Basophils 1.4 % (0.0-1.0); %Eosinophils 12.1 % (0.0-10.0); %Lymphocytes 30.6 % (21.0-51.0); %Monocytes 9.1 % (0.0-10.0); %Neutrophils 46.7 % (42.0-75.0); Hemoglobin 11.5 g/dL (14.0-18.0); Mean Corpuscular HGB CONC 33.3 g/dL (32.0-36.0); Mean Corpuscular Hemoglobin 31.9 pg (27.0-31.0); Mean Platelet Volume 9.3 fL (7.4-10.4); Platelet Count 175 10x3/uL (130-400); RBC Distribution Width 13.2 % (11.5-14.5); Red Blood Cell (RBC) Count 3.62 mill/uL (4.70-6.10); White Blood Cell (WBC) Count 7.1 10x3/uL (4.8-10.8)
[2023-01-01 05:49] LABS: ALT (SGPT) 41 U/L (8-55); AST (SGOT) 28 U/L (5-34); Alkaline Phosphatase 107 U/L (40-110); Anion Gap 18 mmol/L (10-20); BUN (Urea Nitrogen) 36 mg/dL (8.9-20.6); Bilirubin, Total 1.3 mg/dL (0.2-1.2); Calc. Creatinine Clearance 11 mL/min (70-130); Calcium 9.6 mg/dL (7.8-10.44); Carbon Dioxide 27 mmol/L (22-29); Chloride 97 mmol/L (98-107); Estimated GFR 6; Globulin 3.7 g/dL (2.4-3.5); Glucose 106 mg/dL (70-105); Phosphorus 5.8 mg/dL (2.3-4.7); Protein, Total 7.7 g/dL (6.0-8.3); Sodium 137 mmol/L (136-145)
[2023-01-01 08:14] VITALS: TEMP 98.1
[2023-01-01] MEDS ORDERED: hydrALAZINE 20 MG/ML VIAL SLOW IVP SCH (08:45)
[2023-01-01] MEDS: Ondansetron PF 4 MG/2 ML Vial IVP PRN (09:34)
[2023-01-01 13:35] LABS: #Basophils 0.1 thou/uL (0.0-0.2); #Eosinphils 0.8 thou/uL (0.0-0.7); #Lymphocytes 1.9 thou/uL (1.20-3.40); #Monocytes 0.6 thou/uL (0.11-0.59); #Neutrophils 3.3 thou/uL (1.40-6.50); %Basophils 1.7 % (0.0-1.0); %Lymphocytes 27.7 % (21.0-51.0); %Monocytes 9.6 % (0.0-10.0); %Neutrophils 48.9 % (42.0-75.0); Hemoglobin 12.3 g/dL (14.0-18.0); Mean Corpuscular HGB CONC 33.2 g/dL (32.0-36.0); Mean Corpuscular Hemoglobin 32.2 pg (27.0-31.0); Mean Platelet Volume 9.9 fL (7.4-10.4); Platelet Count 211 10x3/uL (130-400); RBC Distribution Width 13.4 % (11.5-14.5); Red Blood Cell (RBC) Count 3.83 mill/uL (4.70-6.10); White Blood Cell (WBC) Count 6.7 10x3/uL (4.8-10.8)
[2023-01-01 13:58] LABS: Anion Gap 19 mmol/L (10-20); BUN (Urea Nitrogen) 38 mg/dL (8.9-20.6); Calc. Creatinine Clearance 10 mL/min (70-130); Calcium 9.6 mg/dL (7.8-10.44); Carbon Dioxide 27 mmol/L (22-29); Chloride 96 mmol/L (98-107); Estimated GFR 5; Glucose 126 mg/dL (70-105); Potassium 5.1 mmol/L (3.5-5.1); Sodium 137 mmol/L (136-145)
[2023-01-01] MEDS ORDERED: hydrALAZINE 25 MG TAB PO SCH (15:00)
[2023-01-01] MEDS ORDERED: Gabapentin 100 MG CAP PO SCH (15:00)
[2023-01-01 15:04] VITALS: BP 156/85
[2023-01-01] MEDS ORDERED: Sucralfate 1 GM TAB PO SCH (17:00)
[2023-01-01] MEDS ORDERED: Sevelamer Carbonate 800 MG TAB PO SCH (17:00)
[2023-01-01] MEDS ORDERED: Carvedilol 25 MG TAB PO SCH (21:00)
[2023-01-02] MEDS ORDERED: Lisinopril 20 MG TAB PO SCH (09:00)
[2023-01-02] MEDS ORDERED: Furosemide 40 MG TAB PO SCH (09:00)
== END 2023-01-01 17:25 | disposition home or self-care (01) | DRG 640 ==
LOC: ERS 15:10 → MSONC 20:02
PROVIDERS: ADMIT Hospitalist; ATTEND Student in an Organized Health Care Education/Training Program
PROC: 5A1D70Z Performance of Urinary Filtration, Intermittent, Less than 6 Hours Per Day (ICD-10-PCS; principal; 2022-12-30)
DX: E87.5 Hyperkalemia (principal); N18.6 End stage renal disease; I12.0 Hypertensive chronic kidney disease with stage 5 chronic kidney disease or end stage renal disease; I42.8 Other cardiomyopathies; E87.70 Fluid overload, unspecified; Z20.822 Contact with and (suspected) exposure to COVID-19; K21.9 Gastro-esophageal reflux disease without esophagitis; K29.70 Gastritis, unspecified, without bleeding; K82.8 Other specified diseases of gallbladder; E80.6 Other disorders of bilirubin metabolism; G89.29 Other chronic pain; D63.1 Anemia in chronic kidney disease; F17.210 Nicotine dependence, cigarettes, uncomplicated; E83.39 Other disorders of phosphorus metabolism; Z83.3 Family history of diabetes mellitus; Z28.21 Immunization not carried out because of patient refusal; Z99.2 Dependence on renal dialysis; Z79.899 Other long term (current) drug therapy; Z82.49 Family history of ischemic heart disease and other diseases of the circulatory system
CPT/HCPCS: 36415; 71045; 76705; 78227; 80048; 80053; 83735; 83970; 84100; 84484; 85025; 86704; 90935; 93005; 96365; 96375; A9537; G0257; J0360; J1815; J2405; J2543; J3010; J7611; J7999; Q5105; U0002

== ENCOUNTER 2025-06-09 00:32 | Inpatient (IN) | payer BC ==
[2025-06-09 01:12] LABS: Hematocrit 26.8 % (42.0-52.0); Hemoglobin 8.3 g/dL (14.0-18.0); Mean Corpuscular Hemoglobin 28.2 pg (27.0-31.0); Mean Corpuscular Volume 91.2 fL (78.0-98.0); Platelet Count 453 10x3/uL (130-400); Red Blood Cell (RBC) Count 2.94 mill/uL (4.70-6.10); White Blood Cell (WBC) Count 11.22 10x3/uL (4.8-10.8)
[2025-06-09 01:26] LABS: ALT (SGPT) 26 U/L (Less than 45); AST (SGOT) 44 U/L (11-34); Albumin 3.5 g/dL (3.1-4.5); Alkaline Phosphatase 350 U/L (40-110); Anion Gap 19 mmol/L (10-20); BUN (Urea Nitrogen) 29 mg/dL (8.9-20.6); Bilirubin, Total 0.8 mg/dL (0.3-1.2); Calc. Creatinine Clearance 0 mL/min (70-130); Calcium 9.5 mg/dL (7.8-10.44); Carbon Dioxide 25 mmol/L (22-29); Chloride 97 mmol/L (98-107); Globulin 4.9 g/dL (2.4-3.5); Glucose 75 mg/dL (70-105); Potassium 5.4 mmol/L (3.5-5.1); Sodium 136 mmol/L (136-145)
[2025-06-09 01:30] LABS: Troponin I 0.127 ng/mL (< 0.028)
[2025-06-09 02:51] LABS: Anisocytosis MODERATE=16-30 cells HPF (0-5); Macrocytosis SLIGHT = 6-15 cells HPF (0-5); Platelet Adequacy Comment Platelets Normal; Polychromasia SLIGHT = 2-3 cells HPF (0-2); Smudge Cells 3.0 %
[2025-06-09] MEDS ORDERED: HYDROmorphone 0.5 MG/0.5 ML SYRINGE ONE (03:29)
[2025-06-09 05:46] LABS: Acetaminophen Less than 10 mcg/mL (Less than 10); Salicylate Less than 8.0 mg/dL (Less than 8.0)
[2025-06-09] MEDS ORDERED: Ondansetron PF 4 MG/2 ML Vial IVP PRN (06:11)
[2025-06-09 06:15] LABS: Troponin I 0.121 ng/mL (< 0.028)
[2025-06-09] MEDS ORDERED: Heparin 10,000 UNITS/ 10 ML VIAL ONE (09:46)
[2025-06-09] MEDS ORDERED: Iopamidol 370 76% 100 ML VIAL ONE (09:51)
[2025-06-09 10:19] LABS: Troponin I 0.103 ng/mL (< 0.028)
[2025-06-09 10:26] LABS: HBSAB Concentration 656.82 mIU/mL; Hep B Core Total Ab NONREACTIVE (NonReactive); Hep B Core Total Index 0.10 S/CO (0-0.79); Hep B Surf Ag NONREACTIVE S/CO (NonReactive); Hep C IgG Ab NONREACTIVE S/CO (NonReactive); Hep C Index 0.47 S/CO (0-0.79)
[2025-06-09] MEDS: LOKELMA 10 GM PACKET PO SCH (11:42)
[2025-06-09] MEDS: hydrALAZINE 20 MG/ML VIAL SLOW IVP PRN (12:38)
[2025-06-09] MEDS: Acetaminophen 325 MG TAB PO PRN (15:15)
[2025-06-09] MEDS: EPOETIN ALFA-EPBX (ESRD) 10,000 UNITS/ML VIAL SC SCH (16:13)
[2025-06-09 17:29] VITALS: BMI 25.1
[2025-06-09] MEDS: PNEUMOC 20-VAL CONJ-DIP CRM/PF 0.5 ML SYRINGE IM ONE (17:30)
[2025-06-09] MEDS: Fioricet 325/50/40 mg Tablet PO PRN (19:53)
[2025-06-09] MEDS ORDERED: HYDROcodone/Acetaminophen 5/325 mg Tablet PO SCH (21:15)
[2025-06-09] MEDS: diphenhydrAMINE 50 MG/ML VIAL IVP SCH (21:30)
[2025-06-09] MEDS: Metoclopramide HCl 10 MG (2 mL) VIAL IVP SCH (21:31)
[2025-06-10 05:07] LABS: #Basophils 0.14 10x3/uL (0.0-0.2); #Eosinophils 1.82 10x3/uL (0.0-0.7); #Monocytes 1.08 10x3/uL (0.11-0.59); #Neutrophils 6.91 10x3/uL (1.40-6.50); %Basophils 1.3 % (0.0-1.0); %Eosinophils 16.3 % (0.0-10.0); %Lymphocytes 10.8 % (21.0-51.0); %Monocytes 9.6 % (0.0-10.0); %Neutrophils 61.6 % (42.0-75.0); Hematocrit 28.1 % (42.0-52.0); Hemoglobin 8.8 g/dL (14.0-18.0); Mean Corpuscular Hemoglobin 28.2 pg (27.0-31.0); Mean Corpuscular Volume 90.1 fL (78.0-98.0); Platelet Count 440 10x3/uL (130-400); Red Blood Cell (RBC) Count 3.12 mill/uL (4.70-6.10); White Blood Cell (WBC) Count 11.20 10x3/uL (4.8-10.8)
[2025-06-10 05:34] LABS: Anion Gap 16 mmol/L (10-20); BUN (Urea Nitrogen) 17 mg/dL (8.9-20.6); Calc. Creatinine Clearance 15 mL/min (70-130); Calcium 9.1 mg/dL (7.8-10.44); Carbon Dioxide 28 mmol/L (22-29); Chloride 95 mmol/L (98-107); Glucose 126 mg/dL (70-105); Potassium 4.9 mmol/L (3.5-5.1); Sodium 134 mmol/L (136-145)
[2025-06-10] MEDS: Calcitriol 0.25 MCG CAP PO SCH (09:10)
[2025-06-10 12:37] VITALS: BP 180/94; TEMP 98.1
== END 2025-06-10 14:10 | disposition home or self-care (01) | DRG 640 ==
LOC: ERS 00:32 → OBSVTOIN 05:48 → OBS 05:48
PROVIDERS: ADMIT Internal Medicine; ATTEND Family Medicine
PROC: 5A1D70Z Performance of Urinary Filtration, Intermittent, Less than 6 Hours Per Day (ICD-10-PCS; principal; 2025-06-09)
DX: E87.5 Hyperkalemia (principal); N18.6 End stage renal disease; I13.2 Hypertensive heart and chronic kidney disease with heart failure and with stage 5 chronic kidney disease, or end stage renal disease; I31.39 Other pericardial effusion (noninflammatory); N25.81 Secondary hyperparathyroidism of renal origin; Z99.2 Dependence on renal dialysis; E87.70 Fluid overload, unspecified; K21.9 Gastro-esophageal reflux disease without esophagitis; I50.9 Heart failure, unspecified; D63.1 Anemia in chronic kidney disease; Z79.899 Other long term (current) drug therapy
CPT/HCPCS: 36415; 71045; 71275; 80048; 80053; 80307; 83880; 83970; 84100; 84484; 85025; 86704; 86706; 86803; 87040; 87340; 93005; 93306; 96372; 96374; 96375; G0378; J0360; J1171; J1200; J1644; J2270; J2765; Q5105; Q9967

== ENCOUNTER 2025-06-17 23:37 | Emergency (ER) | payer BC ==
[2025-06-18 00:26] LABS: #Basophils 0.09 10x3/uL (0.0-0.2); #Eosinophils 0.84 10x3/uL (0.0-0.7); #Monocytes 0.73 10x3/uL (0.11-0.59); #Neutrophils 4.76 10x3/uL (1.40-6.50); %Basophils 1.1 % (0.0-1.0); %Eosinophils 10.7 % (0.0-10.0); %Lymphocytes 18.3 % (21.0-51.0); %Monocytes 9.3 % (0.0-10.0); %Neutrophils 60.3 % (42.0-75.0); Hematocrit 23.7 % (42.0-52.0); Hemoglobin 7.2 g/dL (14.0-18.0); Mean Corpuscular Hemoglobin 26.9 pg (27.0-31.0); Mean Corpuscular Volume 88.4 fL (78.0-98.0); Platelet Count 464 10x3/uL (130-400); Red Blood Cell (RBC) Count 2.68 mill/uL (4.70-6.10); White Blood Cell (WBC) Count 7.88 10x3/uL (4.8-10.8)
[2025-06-18 01:00] LABS: ALT (SGPT) 47 U/L (Less than 45); AST (SGOT) 65 U/L (11-34); Albumin 3.2 g/dL (3.1-4.5); Alkaline Phosphatase 407 U/L (40-110); Anion Gap 22 mmol/L (10-20); BUN (Urea Nitrogen) 41 mg/dL (8.9-20.6); Bilirubin, Total 0.6 mg/dL (0.3-1.2); Calc. Creatinine Clearance 0 mL/min (70-130); Calcium 9.7 mg/dL (7.8-10.44); Carbon Dioxide 22 mmol/L (22-29); Chloride 94 mmol/L (98-107); Globulin 5.0 g/dL (2.4-3.5); Glucose 168 mg/dL (70-105); Potassium 5.4 mmol/L (3.5-5.1); Sodium 133 mmol/L (136-145)
[2025-06-18 01:41] LABS: Acetaminophen Less than 10 mcg/mL (Less than 10); Salicylate Less than 8.0 mg/dL (Less than 8.0)
[2025-06-18] MEDS ORDERED: HYDROcodone/Acetaminophen 5/325 mg Tablet ONE (05:46)
== END 2025-06-18 05:50 | disposition home or self-care (01) ==
LOC: ERS 23:37
DX: R07.9 Chest pain, unspecified (principal); I12.0 Hypertensive chronic kidney disease with stage 5 chronic kidney disease or end stage renal disease; N18.6 End stage renal disease; F17.210 Nicotine dependence, cigarettes, uncomplicated; Z99.2 Dependence on renal dialysis
CPT/HCPCS: 36415; 71045; 80053; 80307; 83880; 84484; 85025; 93005

== ENCOUNTER 2025-07-07 18:22 | Emergency (ER) | payer BC ==
[2025-07-07] MEDS ORDERED: Nitroglycerin 0.4 MG TAB 1 EACH ONE (20:14)
[2025-07-07] MEDS ORDERED: Droperidol 5 MG/2 ML VIAL ONE (21:07)
[2025-07-07 23:08] LABS: #Basophils 0.10 10x3/uL (0.0-0.2); #Eosinophils 1.06 10x3/uL (0.0-0.7); #Monocytes 0.52 10x3/uL (0.11-0.59); #Neutrophils 4.28 10x3/uL (1.40-6.50); %Basophils 1.3 % (0.0-1.0); %Eosinophils 14.0 % (0.0-10.0); %Lymphocytes 21.1 % (21.0-51.0); %Monocytes 6.9 % (0.0-10.0); %Neutrophils 56.6 % (42.0-75.0); Hematocrit 30.1 % (42.0-52.0); Hemoglobin 9.3 g/dL (14.0-18.0); Mean Corpuscular Hemoglobin 26.0 pg (27.0-31.0); Mean Corpuscular Volume 84.1 fL (78.0-98.0); Platelet Count 337 10x3/uL (130-400); Red Blood Cell (RBC) Count 3.58 mill/uL (4.70-6.10); White Blood Cell (WBC) Count 7.57 10x3/uL (4.8-10.8)
[2025-07-07 23:45] LABS: ALT (SGPT) 17 U/L (Less than 45); AST (SGOT) 45 U/L (11-34); Albumin 3.1 g/dL (3.1-4.5); Alkaline Phosphatase 180 U/L (40-110); Anion Gap 20 mmol/L (10-20); BUN (Urea Nitrogen) 24 mg/dL (8.9-20.6); Bilirubin, Total 0.5 mg/dL (0.3-1.2); Calc. Creatinine Clearance 0 mL/min (70-130); Calcium 9.0 mg/dL (7.8-10.44); Carbon Dioxide 24 mmol/L (22-29); Chloride 100 mmol/L (98-107); Globulin 4.1 g/dL (2.4-3.5); Glucose 85 mg/dL (70-105); Magnesium 2.4 mg/dL (1.6-2.6); Potassium 5.2 mmol/L (3.5-5.1); Sodium 139 mmol/L (136-145)
[2025-07-08] MEDS ORDERED: LOKELMA 10 GM PACKET PO SCH (01:15)
== END 2025-07-08 01:48 | disposition home or self-care (01) ==
LOC: ERS 18:22
DX: M79.662 Pain in left lower leg (principal); M79.604 Pain in right leg; E87.5 Hyperkalemia; I12.0 Hypertensive chronic kidney disease with stage 5 chronic kidney disease or end stage renal disease; N18.6 End stage renal disease; F17.210 Nicotine dependence, cigarettes, uncomplicated; Z99.2 Dependence on renal dialysis
CPT/HCPCS: 36415; 80053; 83735; 83880; 84484; 85025; 93005; 96374; J1790

== ENCOUNTER 2025-08-18 12:49 | Observation (INO) | payer BC ==
[2025-08-18 14:25] LABS: #Basophils 0.05 10x3/uL (0.0-0.2); #Eosinophils 0.58 10x3/uL (0.0-0.7); #Monocytes 0.69 10x3/uL (0.11-0.59); #Neutrophils 5.93 10x3/uL (1.40-6.50); %Basophils 0.6 % (0.0-1.0); %Eosinophils 7.0 % (0.0-10.0); %Lymphocytes 12.5 % (21.0-51.0); %Monocytes 8.3 % (0.0-10.0); %Neutrophils 71.4 % (42.0-75.0); Hematocrit 26.6 % (42.0-52.0); Hemoglobin 8.5 g/dL (14.0-18.0); Mean Corpuscular Hemoglobin 27.0 pg (27.0-31.0); Mean Corpuscular Volume 84.4 fL (78.0-98.0); Platelet Count 212 10x3/uL (130-400); Red Blood Cell (RBC) Count 3.15 mill/uL (4.70-6.10); White Blood Cell (WBC) Count 8.31 10x3/uL (4.8-10.8)
[2025-08-18 15:00] LABS: ALT (SGPT) 15 U/L (Less than 45); AST (SGOT) 35 U/L (11-34); Albumin 3.2 g/dL (3.1-4.5); Alkaline Phosphatase 244 U/L (40-110); Anion Gap 21 mmol/L (10-20); BUN (Urea Nitrogen) 58 mg/dL (8.9-20.6); Bilirubin, Total 0.7 mg/dL (0.3-1.2); Calc. Creatinine Clearance 0 mL/min (70-130); Calcium 10.2 mg/dL (7.8-10.44); Carbon Dioxide 25 mmol/L (22-29); Chloride 94 mmol/L (98-107); Globulin 4.9 g/dL (2.4-3.5); Glucose 89 mg/dL (70-105); Magnesium 2.9 mg/dL (1.6-2.6); Potassium 7.2 mmol/L (3.5-5.1); Sodium 133 mmol/L (136-145)
[2025-08-18] MEDS ORDERED: Albuterol 2.5 MG (3 mL) NEB ONE (15:36)
[2025-08-18] MEDS ORDERED: CALCIUM GLUC 1 GM/NS 50 ML IV Bag ONE (15:36)
[2025-08-18] MEDS ORDERED: Dextrose 50% Abboject 50 ML SYRINGE ONE (15:37)
[2025-08-18] MEDS ORDERED: EPOETIN ALFA-EPBX (ESRD) 10,000 UNITS/ML VIAL SC SCH (16:30)
[2025-08-18 16:53] LABS: HBSAB Concentration 400.82 mIU/mL; Hep B Core Total Ab NONREACTIVE (NonReactive); Hep B Core Total Index 0.10 S/CO (0-0.79); Hep B Surf Ag NONREACTIVE S/CO (NonReactive); Hep C IgG Ab NONREACTIVE S/CO (NonReactive); Hep C Index 0.38 S/CO (0-0.79)
[2025-08-18] MEDS ORDERED: Calcium Carbonate 500 MG ChewTAB PO PRN (17:09)
[2025-08-18] MEDS ORDERED: Guaifenesin DM 100-10/5 ML UDCUP PO PRN (17:09)
[2025-08-18] MEDS ORDERED: Ondansetron PF 4 MG/2 ML Vial IVP PRN (17:09)
[2025-08-18] MEDS ORDERED: Cyclobenzaprine 10 MG TAB PO PRN (17:12)
[2025-08-18] MEDS ORDERED: Acetaminophen/Codeine 30-300mg Tablet PO PRN (17:13)
[2025-08-18] MEDS ORDERED: Acetaminophen 325 MG TAB PO SCH (18:00)
[2025-08-18] MEDS ORDERED: Heparin 5,000 UNITS/ML VIAL SC SCH (21:00)
[2025-08-18] MEDS ORDERED: Cyproheptadine 4 MG TAB PO SCH (21:00)
[2025-08-18] MEDS ORDERED: Minoxidil 2.5 MG TAB PO SCH (21:00)
[2025-08-18] MEDS ORDERED: Losartan 25 MG TAB PO SCH (21:00)
[2025-08-19] MEDS ORDERED: Pantoprazole 40 MG DR.TAB PO SCH (09:00)
== END 2025-08-18 20:16 | disposition left against medical advice (07) ==
LOC: ERS 12:49 → ERHOLD 17:09
PROVIDERS: ADMIT Internal Medicine; ATTEND Student in an Organized Health Care Education/Training Program
DX: E87.1 Hypo-osmolality and hyponatremia (principal); E87.70 Fluid overload, unspecified; E87.5 Hyperkalemia; E83.41 Hypermagnesemia; I13.2 Hypertensive heart and chronic kidney disease with heart failure and with stage 5 chronic kidney disease, or end stage renal disease; I50.32 Chronic diastolic (congestive) heart failure; N18.6 End stage renal disease; D63.1 Anemia in chronic kidney disease; F17.210 Nicotine dependence, cigarettes, uncomplicated; M79.605 Pain in left leg; M79.604 Pain in right leg; Z99.2 Dependence on renal dialysis
CPT/HCPCS: 36416; 71045; 80053; 83735; 83880; 84484; 85025; 86704; 86706; 86803; 87340; 90935; 93005; 96374; 96375; G0257; J0613; J1815; J7611; J7999

== ENCOUNTER → 2025-10-03 | Emergency (ER) | payer BC ==
[2025-10-03 17:19] LABS: Hematocrit 30.9 % (42.0-52.0); Hemoglobin 9.7 g/dL (14.0-18.0); Mean Corpuscular Hemoglobin 28.8 pg (27.0-31.0); Mean Corpuscular Volume 91.7 fL (78.0-98.0); Platelet Count 242 10x3/uL (130-400); Red Blood Cell (RBC) Count 3.37 mill/uL (4.70-6.10); White Blood Cell (WBC) Count 10.73 10x3/uL (4.8-10.8)
[2025-10-03 17:34] LABS: ALT (SGPT) 31 U/L (Less than 45); AST (SGOT) 55 U/L (11-34); Albumin 3.5 g/dL (3.1-4.5); Alkaline Phosphatase 230 U/L (40-110); Anion Gap 17 mmol/L (10-20); BUN (Urea Nitrogen) 27 mg/dL (8.9-20.6); Bilirubin, Total 0.7 mg/dL (0.3-1.2); Calc. Creatinine Clearance 0 mL/min (70-130); Calcium 9.3 mg/dL (7.8-10.44); Carbon Dioxide 25 mmol/L (22-29); Chloride 99 mmol/L (98-107); Globulin 4.0 g/dL (2.4-3.5); Glucose 93 mg/dL (70-105); Potassium 5.2 mmol/L (3.5-5.1); Sodium 136 mmol/L (136-145)
[2025-10-03 17:40] LABS: Anisocytosis SLIGHT = 6-15 cells HPF (0-5); Macrocytosis SLIGHT = 6-15 cells HPF (0-5); Microcytosis SLIGHT = 6-15 cells HPF (0-5); Ovalocytes SLIGHT = 2-5 cells HPF (0-1); Platelet Adequacy Comment Platelets Normal; Polychromasia SLIGHT = 2-3 cells HPF (0-2); Schistocytes SLIGHT = 2-5 cells HPF (0-1); Smudge Cells 12.2 %
== END ==
LOC: ERS 16:41
DX: I12.0 Hypertensive chronic kidney disease with stage 5 chronic kidney disease or end stage renal disease (principal); N18.6 End stage renal disease; Z53.21 Procedure and treatment not carried out due to patient leaving prior to being seen by health care provider; F17.210 Nicotine dependence, cigarettes, uncomplicated; Z99.2 Dependence on renal dialysis
CPT/HCPCS: 71045; 80053; 83880; 84484; 85025

== ENCOUNTER 2025-10-08 20:40 | Inpatient (IN) | payer BC ==
[~2025-10-08 20:40] MED LIST: Iopamidol-370 76% 500 ML MDV (1 ML CHARGE) ONE
[2025-10-08 21:29] LABS: ALT (SGPT) 37 U/L (Less than 45); AST (SGOT) 49 U/L (11-34); Albumin 3.4 g/dL (3.1-4.5); Alkaline Phosphatase 268 U/L (40-110); Anion Gap 12 mmol/L (10-20); BUN (Urea Nitrogen) 25 mg/dL (8.9-20.6); Bilirubin, Total 0.9 mg/dL (0.3-1.2); Calc. Creatinine Clearance 0 mL/min (70-130); Calcium 8.9 mg/dL (7.8-10.44); Carbon Dioxide 27 mmol/L (22-29); Chloride 98 mmol/L (98-107); Globulin 3.6 g/dL (2.4-3.5); Glucose 98 mg/dL (70-105); Potassium 5.0 mmol/L (3.5-5.1); Sodium 132 mmol/L (136-145)
[2025-10-08] MEDS ORDERED: Nitroglycerin 2% Ointment 1 INCH/1 GM Packet ONE (21:30)
[2025-10-08 21:32] LABS: #Basophils 0.12 10x3/uL (0.0-0.2); #Eosinophils 1.94 10x3/uL (0.0-0.7); #Monocytes 0.66 10x3/uL (0.11-0.59); #Neutrophils 5.18 10x3/uL (1.40-6.50); %Basophils 1.3 % (0.0-1.0); %Eosinophils 21.4 % (0.0-10.0); %Lymphocytes 12.5 % (21.0-51.0); %Monocytes 7.3 % (0.0-10.0); %Neutrophils 57.3 % (42.0-75.0); Hematocrit 30.1 % (42.0-52.0); Hemoglobin 9.3 g/dL (14.0-18.0); Mean Corpuscular Hemoglobin 28.7 pg (27.0-31.0); Mean Corpuscular Volume 92.9 fL (78.0-98.0); Platelet Count 242 10x3/uL (130-400); Red Blood Cell (RBC) Count 3.24 mill/uL (4.70-6.10); White Blood Cell (WBC) Count 9.05 10x3/uL (4.8-10.8)
[2025-10-08] MEDS ORDERED: Aspirin Chewable 81 MG TAB ONE (22:56)
[2025-10-08] MEDS ORDERED: hydrALAZINE 20 MG/ML VIAL ONE (22:57)
[2025-10-09] MEDS ORDERED: niCARdipine 25 MG/10 ML SDV ONE (00:34)
[2025-10-09] MEDS ORDERED: Nitroglycerin 0.4 MG TAB (25 Tab Bottle) SL PRN (01:31)
[2025-10-09] MEDS ORDERED: Ondansetron PF 4 MG/2 ML Vial IVP PRN (01:31)
[2025-10-09 02:32] VITALS: BMI 24.6
[2025-10-09] MEDS: cloNIDine 0.1 MG TAB PO SCH (02:37)
[2025-10-09] MEDS: Ketorolac Tromethamine 30 MG (1 mL) VIAL IVP SCH (02:37)
[2025-10-09 03:59] LABS: Actual Bicarbonate (HCO3v) 27.0 mEq/L (22-28); Base Excess 2.6 mEq/L (-2.0 to +3.0); Calcium, Ionized (venous) 1.06 mmol/L (1.16-1.32); Chloride (VBG) 96 mmol/L (98-106); Hematocrit-VBG 33 % (42.0-52.0); Hemoglobin (Hb) 11.1 g/dL (13.2-17.3); Potassium (VBG) 5.05 mmol/L (3.70-5.30); Sodium 135 mmol/L (133-146)
[2025-10-09 04:54] LABS: Hematocrit 32.3 % (42.0-52.0); Hemoglobin 9.6 g/dL (14.0-18.0); Mean Corpuscular Hemoglobin 28.3 pg (27.0-31.0); Mean Corpuscular Volume 95.3 fL (78.0-98.0); Platelet Count 228 10x3/uL (130-400); Red Blood Cell (RBC) Count 3.39 mill/uL (4.70-6.10); White Blood Cell (WBC) Count 7.71 10x3/uL (4.8-10.8)
[2025-10-09 05:03] LABS: Anion Gap 14 mmol/L (10-20); BUN (Urea Nitrogen) 26 mg/dL (8.9-20.6); Calc. Creatinine Clearance 17 mL/min (70-130); Calcium 8.8 mg/dL (7.8-10.44); Carbon Dioxide 27 mmol/L (22-29); Chloride 96 mmol/L (98-107); Glucose 87 mg/dL (70-105); Magnesium 2.2 mg/dL (1.6-2.6); Potassium 5.1 mmol/L (3.5-5.1); Sodium 132 mmol/L (136-145)
[2025-10-09] MEDS: niCARdipine 25 MG in Sodium Chloride 0.9% 250 ML 250 ML IVPB SCH (05:47)
[2025-10-09 05:59] LABS: Platelet Adequacy Comment Platelets Normal; Smudge Cells 7.1 %
[2025-10-09 07:43] VITALS: TEMP 97.5
[2025-10-09] MEDS: FLU (Fluarix Triv) 25-26 (6MOS UP)/PF 45 MCG/0.5 ML Syringe IM ONE (08:40)
[2025-10-09] MEDS: PNEUMOC 20-VAL CONJ-DIP CRM/PF 0.5 ML SYRINGE IM ONE (08:41)
[2025-10-09] MEDS: Minoxidil 2.5 MG TAB PO SCH (08:51)
[2025-10-09] MEDS: Acetaminophen 325 MG TAB PO PRN (08:51)
[2025-10-09] MEDS: Pantoprazole 40 MG DR.TAB PO SCH (08:52)
[2025-10-09] MEDS: Losartan 25 MG TAB PO SCH (08:52)
[2025-10-09] MEDS ORDERED: Apixaban 5 MG TAB PO SCH ×2 (09:00→21:00)
[2025-10-09] MEDS ORDERED: Heparin 5,000 UNITS/ML VIAL SC SCH (09:00)
[2025-10-09] MEDS: EPOETIN ALFA-EPBX (ESRD) 10,000 UNITS/ML VIAL SC SCH (11:54)
[2025-10-09] MEDS: Transdermal Patch Removal TOP SCH (14:32)
[2025-10-09 14:33] VITALS: BP 182/110
[2025-10-09] MEDS ORDERED: cloNIDine 0.1 MG TAB PO SCH (21:00)
[2025-10-09] MEDS ORDERED: Mupirocin 1 GM TUBE NASAL DECOLONIZATION NASAL SCH (21:00)
== END 2025-10-09 15:43 | disposition left against medical advice (07) | DRG 304 ==
LOC: ERS 20:40 → ERHOLD 10-09 00:38 → CCU 10-09 02:11
PROVIDERS: ADMIT Internal Medicine; ATTEND Internal Medicine
PROC: 5A1D70Z Performance of Urinary Filtration, Intermittent, Less than 6 Hours Per Day (ICD-10-PCS; principal; 2025-10-09)
DX: I16.0 Hypertensive urgency (principal); N18.6 End stage renal disease; G93.40 Encephalopathy, unspecified; E87.1 Hypo-osmolality and hyponatremia; R07.9 Chest pain, unspecified; I13.2 Hypertensive heart and chronic kidney disease with heart failure and with stage 5 chronic kidney disease, or end stage renal disease; E87.70 Fluid overload, unspecified; F32.A Depression, unspecified; F41.9 Anxiety disorder, unspecified; F17.210 Nicotine dependence, cigarettes, uncomplicated; I50.9 Heart failure, unspecified; Z79.899 Other long term (current) drug therapy; Z99.2 Dependence on renal dialysis; Z79.01 Long term (current) use of anticoagulants; Z53.29 Procedure and treatment not carried out because of patient's decision for other reasons; Z91.148 Patient's other noncompliance with medication regimen for other reason
CPT/HCPCS: 36415; 70450; 71045; 71275; 80048; 80053; 82805; 83735; 83880; 84484; 85025; 90935; 93005; 94760; G0257; J0360; J1885; J2270; J7050; Q5105; Q9967

== ENCOUNTER 2025-10-15 05:26 | Emergency (ER) | payer BC ==
[2025-10-15 07:00] LABS: Hematocrit 32.7 % (42.0-52.0); Hemoglobin 10.2 g/dL (14.0-18.0); Mean Corpuscular Hemoglobin 28.5 pg (27.0-31.0); Mean Corpuscular Volume 91.3 fL (78.0-98.0); Platelet Count 237 10x3/uL (130-400); Red Blood Cell (RBC) Count 3.58 mill/uL (4.70-6.10); White Blood Cell (WBC) Count 9.51 10x3/uL (4.8-10.8)
[2025-10-15 07:09] LABS: ALT (SGPT) 23 U/L (Less than 45); AST (SGOT) 37 U/L (11-34); Albumin 3.6 g/dL (3.1-4.5); Alkaline Phosphatase 209 U/L (40-110); Anion Gap 23 mmol/L (10-20); BUN (Urea Nitrogen) 37 mg/dL (8.9-20.6); Bilirubin, Total 0.7 mg/dL (0.3-1.2); Calc. Creatinine Clearance 0 mL/min (70-130); Calcium 9.1 mg/dL (7.8-10.44); Carbon Dioxide 22 mmol/L (22-29); Chloride 98 mmol/L (98-107); Globulin 4.1 g/dL (2.4-3.5); Glucose 118 mg/dL (70-105); Magnesium 2.4 mg/dL (1.6-2.6); Potassium 5.3 mmol/L (3.5-5.1); Sodium 138 mmol/L (136-145)
[2025-10-15 08:51] LABS: Anisocytosis SLIGHT = 6-15 cells HPF (0-5); Macrocytosis SLIGHT = 6-15 cells HPF (0-5); Ovalocytes SLIGHT = 2-5 cells HPF (0-1); Platelet Adequacy Comment Platelets Normal; Polychromasia SLIGHT = 2-3 cells HPF (0-2); Reflex for Review?? YES; Smudge Cells 11.9 %
[2025-10-15] MEDS ORDERED: EPOETIN ALFA-EPBX 10,000 UNITS/ML VIAL SC SCH (16:00)
== END 2025-10-15 15:46 | disposition home or self-care (01) ==
LOC: ERS 05:26
DX: E87.79 Other fluid overload (principal); I12.0 Hypertensive chronic kidney disease with stage 5 chronic kidney disease or end stage renal disease; N18.6 End stage renal disease; F17.210 Nicotine dependence, cigarettes, uncomplicated; Z99.2 Dependence on renal dialysis; Z79.899 Other long term (current) drug therapy
CPT/HCPCS: 71045; 80053; 83735; 83880; 84484; 85025; 85060; 90935; 93005; 96374; G0257; J2270

== ENCOUNTER 2025-10-17 04:52 | Emergency (ER) | payer BC ==
[2025-10-17] MEDS ORDERED: HYDROcodone/Acetaminophen 5/325 mg Tablet ONE (06:03)
[2025-10-17 06:15] LABS: ALT (SGPT) 32 U/L (Less than 45); AST (SGOT) 55 U/L (11-34); Albumin 3.6 g/dL (3.1-4.5); Alkaline Phosphatase 234 U/L (40-110); Anion Gap 19 mmol/L (10-20); BUN (Urea Nitrogen) 35 mg/dL (8.9-20.6); Bilirubin, Total 0.8 mg/dL (0.3-1.2); Calc. Creatinine Clearance 0 mL/min (70-130); Calcium 10.0 mg/dL (7.8-10.44); Carbon Dioxide 24 mmol/L (22-29); Chloride 99 mmol/L (98-107); Globulin 4.0 g/dL (2.4-3.5); Glucose 85 mg/dL (70-105); Potassium 5.2 mmol/L (3.5-5.1); Sodium 137 mmol/L (136-145)
[2025-10-17 06:22] LABS: Hematocrit 33.6 % (42.0-52.0); Hemoglobin 10.2 g/dL (14.0-18.0); Mean Corpuscular Hemoglobin 28.1 pg (27.0-31.0); Mean Corpuscular Volume 92.6 fL (78.0-98.0); Platelet Count 239 10x3/uL (130-400); Red Blood Cell (RBC) Count 3.63 mill/uL (4.70-6.10); White Blood Cell (WBC) Count 10.54 10x3/uL (4.8-10.8)
[2025-10-17 06:43] LABS: Anisocytosis SLIGHT = 6-15 cells HPF (0-5); Platelet Adequacy Comment Platelets Normal; Polychromasia SLIGHT = 2-3 cells HPF (0-2)
[2025-10-17] MEDS ORDERED: Ondansetron PF 4 MG/2 ML Vial ONE (07:50)
[2025-10-17] MEDS ORDERED: Heparin 10,000 UNITS/ 10 ML VIAL FS SCH (08:45)
[2025-10-17] MEDS ORDERED: Heparin 10,000 UNITS/ 10 ML VIAL SLOW IVP SCH (09:00)
[2025-10-17] MEDS ORDERED: EPOETIN ALFA-EPBX (ESRD) 10,000 UNITS/ML VIAL SC SCH (11:00)
[2025-10-17] MEDS ORDERED: Aspirin Chewable 81 MG TAB ONE (16:47)
[2025-10-17] MEDS ORDERED: HYDROmorphone 0.5 MG/0.5 ML SYRINGE ONE (16:47)
== END 2025-10-17 17:38 ==
LOC: ERS 04:52
DX: I16.0 Hypertensive urgency (principal); R79.89 Other specified abnormal findings of blood chemistry; E87.5 Hyperkalemia; E87.70 Fluid overload, unspecified; N18.6 End stage renal disease; I12.0 Hypertensive chronic kidney disease with stage 5 chronic kidney disease or end stage renal disease; F17.210 Nicotine dependence, cigarettes, uncomplicated; Z99.2 Dependence on renal dialysis; Z79.899 Other long term (current) drug therapy
CPT/HCPCS: 71045; 80053; 84484; 85025; 90935; 93005; 96374; 96375; G0257; J1171; J1644; J2270; J2405; Q5105